=== PATIENT | female | born 1940 | race Caucasian/White ===

== ENCOUNTER 2018-02-13 12:36 | Inpatient (IN) | payer MEDICARE, MEDICAID ==
[~2018-02-13] VITALS: Ht 137.2 cm; Wt 49.9 kg
[~2018-02-13 12:36] MED LIST: BIMA0.038 OP; DORZ2SOL9; DORZ2SOL9 OP; EYE
[2018-02-13] MEDS ORDERED: SODIUM CHLORIDE 0.9% 1,000 ML IVB ONE (12:53)
[2018-02-13 13:26] LABS: Basophils # (auto) 0.1 uL; Eosinophils # (auto) 0.1 uL; Eosinophils % (auto) 1.8 % (0.0-7.0); Hematocrit 33.1 % (36.0-46.0); Hemoglobin 11.2 g/dL (12.2-16.2); Mean Corpuscular Hgb Conc. 33.9 g/dL (32.0-36.0); Monocytes # (auto) 0.9 uL; Nucleated Red Blood Cells % 0.1 %
[2018-02-13 13:29] LABS: Lymphocytes # (auto) 1.1 uL; Lymphocytes % (auto) 14.4 % (10.0-50.0); Mean Corpuscular Hemoglobin 34.3 pg (28.0-32.0); Mean Corpuscular Volume 101.1 fL (80.0-100.0); Monocytes % (auto) 11.7 % (0.0-12.0); Neutrophils # (auto) 5.6 uL; Neutrophils % (auto) 71.1 % (37.0-80.0); Platelet Count (auto) 377 10^3/uL (140-450); Red Blood Cells 3.27 10^6/uL (4.0-5.20); Red Cell Distribution Width 13.5 % (11.8-14.3); White Blood Cell 7.8 10^3/uL (4.4-10.8)
[2018-02-13 13:44] LABS: Partial Thromboplastin Time 35.4 sec (23.78-33.04); Prothrombin Time 10.7 sec (9.27-12.13)
[2018-02-13] MEDS ORDERED: ONDANSETRON HCL 4 MG/2 ML VIAL ONE (13:44)
[2018-02-13 13:50] LABS: Albumin 3.2 g/dL (3.4-5.0); BUN/Creatinine Ratio 18.5; Calcium 8.3 mg/dL (8.5-10.1); Magnesium 2.3 mg/dL (1.6-2.6)
[2018-02-13 13:52] LABS: Total Protein 7.4 g/dL (6.4-8.2)
[2018-02-13] MEDS ORDERED: ONDANSETRON HCL 4 MG/2 ML VIAL IV ONE (14:15)
[2018-02-13 14:19] LABS: Urine Bacteria NONE SEEN /hpf (None Seen); Urine Blood Negative /uL (Negative); Urine Mucus FEW (None Seen); Urine Specific Gravity 1.023 (1.001-1.035); Urine WBC 4 /hpf (0 - 5)
[2018-02-13] MEDS ORDERED: cefTRIAXone 1GM/10ml IVPUSH 10 ML IV ONE (16:00)
[2018-02-13] MEDS ORDERED: ONDANSETRON HCL 4 MG/2 ML VIAL IV PRN (16:30)
[2018-02-13] MEDS ORDERED: DOCUSATE SOD 100 MG CAP PO PRN (16:30)
[2018-02-13] MEDS ORDERED: ACETAMINOPHEN 325 MG TAB PO ONE (16:30)
[2018-02-13] MEDS ORDERED: NITROGLYCERIN 0.4 MG SL TAB SL PRN (16:30)
[2018-02-13] MEDS ORDERED: MORPHINE SULF INJ 2 MG/ML SYRINGE 1ML IV PRN ×2 (16:30)
[2018-02-13] MEDS ORDERED: ASPirin-EC 81 mg tab PO ONE (17:00)
[2018-02-13] MEDS ORDERED: ENOXAPARIN SOD 40 MG/0.4 ML SYRINGE SC ONE (17:00)
[2018-02-13] MEDS: HYDROcodone-ACET 5/325MG TAB PO PRN (17:23)
[2018-02-13 20:00] VITALS: BP 120/65
[2018-02-13] MEDS: DORZOLAMIDE HCL 2% OPTH(EYE) SOL 10ML EACHEYE SCH (22:07)
[2018-02-13] MEDS: FAMOTIDINE 20 MG TAB PO SCH (22:07)
[2018-02-13] MEDS: ATORVASTATIN 20 MG TAB PO SCH (22:07)
[2018-02-13] MEDS: LATANOPROST 0.005 % OPTH(EYE) SOL 2.5ML EACHEYE SCH (22:07)
[2018-02-13] MEDS: SODIUM CHLOR 0.9% PF (SALINE LOCK) 10ML VIAL/SYR IV SCH (22:08)
[2018-02-14] MEDS ORDERED: TEMAZEPAM 15 MG CAP PO ONE
[2018-02-14 04:51] VITALS: BP 108/62
[2018-02-14 05:51] LABS: Basophils # (auto) 0.1 uL; Eosinophils # (auto) 0.3 uL; Monocytes # (auto) 0.8 uL; Neutrophils # (auto) 3.4 uL; Platelet Count (auto) 308 10^3/uL (140-450); Red Blood Cells 2.84 10^6/uL (4.0-5.20); White Blood Cell 5.6 10^3/uL (4.4-10.8)
[2018-02-14] MEDS: SODIUM CHLOR 0.9% PF (SALINE LOCK) 10ML VIAL/SYR IV SCH ×3 (05:59→22:21)
[2018-02-14 06:05] LABS: Basophils % (auto) 1.1 % (0.0-2.0); Eosinophils % (auto) 5.2 % (0.0-7.0); Hematocrit 28.9 % (36.0-46.0); Hemoglobin 10.1 g/dL (12.2-16.2); Lymphocytes % (auto) 17.7 % (10.0-50.0); Mean Corpuscular Hemoglobin 35.5 pg (28.0-32.0); Mean Corpuscular Hgb Conc. 34.9 g/dL (32.0-36.0); Mean Corpuscular Volume 101.9 fL (80.0-100.0); Monocytes % (auto) 15.1 % (0.0-12.0); Neutrophils % (auto) 60.9 % (37.0-80.0); Red Cell Distribution Width 13.3 % (11.8-14.3)
[2018-02-14 06:39] LABS: Albumin 2.7 g/dL (3.4-5.0); BUN/Creatinine Ratio 14.6; Bilirubin, Total 0.8 mg/dL (0.2-1.0); Calcium 7.6 mg/dL (8.5-10.1); Potassium 3.7 mmol/L (3.5-5.1); Total Protein 6.2 g/dL (6.4-8.2)
[2018-02-14 09:00] VITALS: BP 114/76
[2018-02-14] MEDS: cefTRIAXone 1GM/10ml IVPUSH 10 ML IV SCH (09:12)
[2018-02-14] MEDS ORDERED: CALCIUM W/VIT D (600MG/400IU) TAB PO ONE (10:30)
[2018-02-14] MEDS: DORZOLAMIDE HCL 2% OPTH(EYE) SOL 10ML EACHEYE SCH ×2 (10:32→22:21)
[2018-02-14] MEDS: ENOXAPARIN SOD 40 MG/0.4 ML SYRINGE SC SCH (10:33)
[2018-02-14] MEDS: FAMOTIDINE 20 MG TAB PO SCH ×2 (10:33→22:22)
[2018-02-14] MEDS: MULTIPLE VITAMIN TAB PO SCH (10:33)
[2018-02-14] MEDS: ASPirin-EC 81 mg tab PO SCH (10:33)
[2018-02-14] MEDS: Ensure Enlive Strawberry 8oz Bottle PO SCH ×2 (11:27→17:31)
[2018-02-14 12:55] VITALS: BP 173/80
[2018-02-14 17:00] VITALS: BP 111/59
[2018-02-14] MEDS: CALCIUM W/VIT D (600MG/400IU) TAB PO SCH (17:31)
[2018-02-14] MEDS ORDERED: LORazepam 2MG/ML-1ML VIAL IV PRN (19:00)
[2018-02-14 20:50] LABS: Folate (Folic Acid) 14.93 ng/mL (5.38-24)
[2018-02-14] MEDS: LATANOPROST 0.005 % OPTH(EYE) SOL 2.5ML EACHEYE SCH (22:21)
[2018-02-14] MEDS: ATORVASTATIN 20 MG TAB PO SCH (22:22)
[2018-02-14 22:47] VITALS: BP 108/64
[2018-02-15] VITALS (7 sets, daily range): BP systolic 97–110; BP diastolic 58–68
[2018-02-15] MEDS: SODIUM CHLOR 0.9% PF (SALINE LOCK) 10ML VIAL/SYR IV SCH ×3 (06:08→21:59)
[2018-02-15 06:48] LABS: Eosinophils # (auto) 0.1 uL; Neutrophils # (auto) 3.3 uL; Red Blood Cells 2.85 10^6/uL (4.0-5.20); Red Cell Distribution Width 13.2 % (11.8-14.3)
[2018-02-15 06:52] LABS: Basophils # (auto) 0.1 uL; Eosinophils % (auto) 2.4 % (0.0-7.0); Hematocrit 28.7 % (36.0-46.0); Hemoglobin 10.1 g/dL (12.2-16.2); Mean Corpuscular Hemoglobin 35.6 pg (28.0-32.0); Mean Corpuscular Hgb Conc. 35.3 g/dL (32.0-36.0); Mean Corpuscular Volume 100.9 fL (80.0-100.0); Monocytes # (auto) 0.9 uL; Monocytes % (auto) 17.2 % (0.0-12.0); Neutrophils % (auto) 61.4 % (37.0-80.0); Nucleated Red Blood Cells % 0.2 %; Platelet Count (auto) 329 10^3/uL (140-450); White Blood Cell 5.4 10^3/uL (4.4-10.8)
[2018-02-15 07:14] LABS: BUN/Creatinine Ratio 14.3; Calcium 8.2 mg/dL (8.5-10.1); Potassium 3.6 mmol/L (3.5-5.1)
[2018-02-15] MEDS: CALCIUM W/VIT D (600MG/400IU) TAB PO SCH ×2 (09:12→19:01)
[2018-02-15] MEDS: MULTIPLE VITAMIN TAB PO SCH (09:13)
[2018-02-15] MEDS: ASPirin-EC 81 mg tab PO SCH (09:13)
[2018-02-15] MEDS: cefTRIAXone 1GM/10ml IVPUSH 10 ML IV SCH (09:13)
[2018-02-15] MEDS: DORZOLAMIDE HCL 2% OPTH(EYE) SOL 10ML EACHEYE SCH ×2 (09:13→21:58)
[2018-02-15] MEDS: Ensure Enlive Strawberry 8oz Bottle PO SCH ×3 (09:13→19:01)
[2018-02-15] MEDS: FAMOTIDINE 20 MG TAB PO SCH ×2 (09:13→22:00)
[2018-02-15] MEDS: ENOXAPARIN SOD 40 MG/0.4 ML SYRINGE SC SCH (09:15)
[2018-02-15] MEDS: ACETAMINOPHEN 325 MG TAB PO PRN (10:09)
[2018-02-15] MEDS: HYDROcodone-ACET 5/325MG TAB PO PRN (12:40)
[2018-02-15] MEDS: LATANOPROST 0.005 % OPTH(EYE) SOL 2.5ML EACHEYE SCH (21:59)
[2018-02-15] MEDS: ATORVASTATIN 20 MG TAB PO SCH (21:59)
[2018-02-16] MEDS: SODIUM CHLOR 0.9% PF (SALINE LOCK) 10ML VIAL/SYR IV SCH ×2 (05:25→15:12)
[2018-02-16 05:49] VITALS: BP 100/63
[2018-02-16] MEDS: ACETAMINOPHEN 325 MG TAB PO PRN (06:12)
[2018-02-16 08:36] VITALS: BP 101/61
[2018-02-16] MEDS: cefTRIAXone 1GM/10ml IVPUSH 10 ML IV SCH (09:48)
[2018-02-16] MEDS: CALCIUM W/VIT D (600MG/400IU) TAB PO SCH (09:48)
[2018-02-16] MEDS: ASPirin-EC 81 mg tab PO SCH (09:48)
[2018-02-16] MEDS: ENOXAPARIN SOD 40 MG/0.4 ML SYRINGE SC SCH (09:48)
[2018-02-16] MEDS: FAMOTIDINE 20 MG TAB PO SCH (09:48)
[2018-02-16] MEDS: DORZOLAMIDE HCL 2% OPTH(EYE) SOL 10ML EACHEYE SCH (09:49)
[2018-02-16] MEDS: MULTIPLE VITAMIN TAB PO SCH (09:49)
[2018-02-16] MEDS: Ensure Enlive Strawberry 8oz Bottle PO SCH ×2 (09:50→15:11)
[2018-02-16] MEDS ORDERED: CEPH-37 PO (10:16)
[2018-02-16] MEDS ORDERED: MULTTAB99 PO (10:16)
[2018-02-16 13:07] VITALS: BP 100/58
== END 2018-02-16 14:50 | disposition home health service (06) | DRG 463 ==
LOC: EDBD 12:36 → ER 12:36 → OVERFLOW 12:37 → TELE-WESTW 19:55
PROVIDERS: ADMIT Internal Medicine; ATTEND Internal Medicine
DX: N39.0 Urinary tract infection, site not specified (principal); G93.41 Metabolic encephalopathy; E44.0 Moderate protein-calorie malnutrition; D63.8 Anemia in other chronic diseases classified elsewhere; J98.11 Atelectasis; H40.9 Unspecified glaucoma; H91.90 Unspecified hearing loss, unspecified ear; G47.10 Hypersomnia, unspecified; D32.9 Benign neoplasm of meninges, unspecified; R53.1 Weakness; E83.51 Hypocalcemia; D50.9 Iron deficiency anemia, unspecified; Z80.1 Family history of malignant neoplasm of trachea, bronchus and lung; Z80.3 Family history of malignant neoplasm of breast; Z82.49 Family history of ischemic heart disease and other diseases of the circulatory system; Z90.710 Acquired absence of both cervix and uterus; Z83.3 Family history of diabetes mellitus; Z90.49 Acquired absence of other specified parts of digestive tract
CPT/HCPCS: 36415; 70450; 70551; 71045; 80048; 80053; 81001; 82533; 82607; 82746; 82962; 83735; 84443; 84484; 85025; 85610; 85730; 87086; 93005; 93306; 93886; 94761; 95819; 96361; 96372; 96374; 96375; 97116; 97163; 97530; J0696; J2405

== ENCOUNTER 2018-09-27 13:13 | Inpatient (IN) | payer MEDICARE, MEDICAID ==
[~2018-09-27] VITALS: Ht 137.2 cm; Wt 67.2 kg
[~2018-09-27 13:13] MED LIST changes: +CEPH-37 PO; +MULTTAB99 PO
[2018-09-27] MEDS ORDERED: SODIUM CHLORIDE 0.9% 1,000 ML IV ONE (13:26)
[2018-09-27] MEDS ORDERED: ACETAMINOPHEN 325 MG TAB PO ONE (13:45)
[2018-09-27 14:18] LABS: Eosinophils # (auto) 0 uL; Hemoglobin 11.8 g/dL (12.2-16.2); Lymphocytes # (auto) 0.5 uL
[2018-09-27 14:19] LABS: Basophils # (auto) 0.2 uL; Basophils % (auto) 1.6 % (0.0-2.0); Eosinophils % (auto) 0.1 % (0.0-7.0); Hematocrit 36.2 % (36.0-46.0); Lymphocytes % (auto) 5.4 % (10.0-50.0); Mean Corpuscular Hemoglobin 34.3 pg (28.0-32.0); Mean Corpuscular Hgb Conc. 32.6 g/dL (32.0-36.0); Mean Corpuscular Volume 105.4 fL (80.0-100.0); Monocytes # (auto) 0.8 uL; Monocytes % (auto) 8.2 % (0.0-12.0); Neutrophils # (auto) 7.9 uL; Neutrophils % (auto) 84.7 % (37.0-80.0); Platelet Count (auto) 338 10^3/uL (140-450); Red Blood Cells 3.44 10^6/uL (4.0-5.20); Red Cell Distribution Width 14.4 % (11.8-14.3); White Blood Cell 9.3 10^3/uL (4.4-10.8)
[2018-09-27 14:29] LABS: Alanine Aminotransferase 20 U/L (13-56); Albumin 4.1 g/dL (3.4-5.0); Anion Gap 4 (5-15); Aspartate Aminotransferase 19 U/L (15-37); BUN/Creatinine Ratio 12.9; Blood Urea Nitrogen 8 mg/dL (7-18); Calcium 8.5 mg/dL (8.5-10.1); Carbon Dioxide 26 mmol/L (21-32); Chloride 106 mmol/L (98-107); GFR African American 119 mL/min; GFR Non-African American 99 mL/min; Glucose 105 mg/dL (74-106); Potassium 3.8 mmol/L (3.5-5.1); Sodium 136 mmol/L (136-145)
[2018-09-27 14:33] LABS: INR 0.97 (0.9-1.15); Partial Thromboplastin Time 28.9 sec (23.78-33.04); Prothrombin Time 10.4 sec (9.27-12.13)
[2018-09-27 14:38] LABS: Alkaline Phosphatase 77 U/L (45-117); Bilirubin, Total 1.2 mg/dL (0.2-1.0); Total Protein 7.6 g/dL (6.4-8.2)
[2018-09-27] MEDS ORDERED: IBUPROFEN 600 MG TAB PO ONE (15:00)
[2018-09-27] MEDS ORDERED: cefTRIAXone 1GM/50ML D5W 50 ML IV ONE (15:00)
[2018-09-27 16:04] LABS: Urine Bacteria NONE SEEN /hpf (None Seen); Urine Blood Negative /uL (Negative); Urine Mucus FEW (None Seen); Urine WBC 1 /hpf (0 - 5)
[2018-09-27] MEDS ORDERED: FUROSEMIDE 20 MG/2 ML VIAL IV ONE (16:30)
[2018-09-27] MEDS ORDERED: ONDANSETRON HCL 4 MG/2 ML VIAL IV PRN (17:00)
[2018-09-27] MEDS ORDERED: MORPHINE SULF INJ 2 MG/ML SYRINGE 1ML IV PRN ×2 (17:00)
[2018-09-27] MEDS ORDERED: NITROGLYCERIN 0.4 MG SL TAB SL PRN (17:00)
[2018-09-27] MEDS: SODIUM CHLORIDE 0.9% 1,000 ML IV SCH ×2 (17:14→23:26)
[2018-09-27] MEDS: AZITHROMYCIN 500MG/ 250ML 250 ML IV SCH (17:20)
[2018-09-27] MEDS: ACETAMINOPHEN 500 MG TAB PO PRN (17:41)
[2018-09-27] MEDS: ALBUTEROL SULF 2.5 MG/0.5ML(0.5%) NEB SOLN NEB SCH (18:37)
[2018-09-27] MEDS: IPRATROPIUM BROM 0.5 MG/2.5ML INH SOL NEB SCH (18:38)
--- NOTE | 2018-09-27 18:38 | NUR ---
Respiratory note: AT BEDSIDE IN ER BED/YONI #24 FOR MED NEB TX. PT TOLERATING WELL VIA MASK.
[2018-09-27 19:43] VITALS: BP 108/50
[2018-09-27] MEDS: EYE OP SCH (22:00)
[2018-09-27] MEDS: DORZOLAM-TIMOLOL(2/0.5%) OPTH(EYE) SOLN 10ML OP SCH (22:00)
[2018-09-27] MEDS: BIMATOPROST 0.03% OP SCH (22:00)
[2018-09-27 23:30] VITALS: BP 98/38
--- NOTE | 2018-09-27 23:30 | NUR ---
Telemetry admit from ER DARRYLANTHONY admitted to Telemetry unit after SBAR received. Patient oriented to Dawn Moy, primary RN, unit, room, bed, and unit policies regarding patient care and visiting hours. Patient now on continuous telemetry monitoring, tele box # 40 and telemetry reading on arrival to unit is . Patient placed on bedside oxygen, weighed by bedscale and encouraged to call if they need something. All questions and concerns addressed, patient verbalized understanding. PT. VERY HARD OF HEARING. Note:
[2018-09-27] MEDS: OSELTAMIVIR 30 MG CAP PO SCH (23:58)
[2018-09-28] MEDS: ACETAMINOPHEN 500 MG TAB PO PRN ×2 (03:45→14:14)
--- NOTE | 2018-09-28 03:45 | NUR ---
pt. temp. 100.3, cooling measures applied, tylenol given as ordered, to keep monitor.
[2018-09-28 04:30] VITALS: BP 112/66
[2018-09-28 05:07] LABS: Cholesterol 120 mg/dL (< 200); Triglycerides 33 mg/dL (< 150)
[2018-09-28 05:09] LABS: HDL Cholesterol 64 mg/dL (40-59); LDL Cholesterol 62 mg/dL (< 100)
[2018-09-28] MEDS: IPRATROPIUM BROM 0.5 MG/2.5ML INH SOL NEB SCH ×3 (06:55→18:45)
[2018-09-28] MEDS: ALBUTEROL SULF 2.5 MG/0.5ML(0.5%) NEB SOLN NEB SCH ×3 (06:55→18:45)
--- NOTE | 2018-09-28 08:00 | NUR ---
PATIENT REFUSED BREAKFAST. SHE IS VERY SLEEPY. SHE IS WEAK AND HAS NO ENERGY. DAUGHTER STATES SHE IS USUALLY A VERY GOOD EATER AND THE DAY BEFORE YESTERDAY THE PATIENT WAS ACTIVE AND DOING HER LAUNDRY. IV INTACT PATIENT. WILL CONTINUE TO MONITOR
[2018-09-28] MEDS: cefTRIAXone 1GM/50ML D5W 50 ML IV SCH (08:39)
[2018-09-28 09:00] VITALS: BP 109/55
--- NOTE | 2018-09-28 09:00 | NUR ---
PATIENT STILL VERY SLEEPY. IV ROCEPHIN 1 GM STARTED.
[2018-09-28 09:37] LABS: Basophils # (auto) 0 uL; Eosinophils # (auto) 0 uL; Hematocrit 29.9 % (36.0-46.0); Lymphocytes # (auto) 0.4 uL; Monocytes # (auto) 0.6 uL; Monocytes % (auto) 9.6 % (0.0-12.0); White Blood Cell 6.7 10^3/uL (4.4-10.8)
[2018-09-28 09:40] LABS: Basophils % (auto) 0.6 % (0.0-2.0); Eosinophils % (auto) 0.1 % (0.0-7.0); Hemoglobin 10.1 g/dL (12.2-16.2); Lymphocytes % (auto) 5.4 % (10.0-50.0); Mean Corpuscular Hemoglobin 35.3 pg (28.0-32.0); Mean Corpuscular Hgb Conc. 33.7 g/dL (32.0-36.0); Mean Corpuscular Volume 104.7 fL (80.0-100.0); Neutrophils # (auto) 5.7 uL; Neutrophils % (auto) 84.3 % (37.0-80.0); Platelet Count (auto) 240 10^3/uL (140-450); Red Blood Cells 2.86 10^6/uL (4.0-5.20)
[2018-09-28 09:49] LABS: BUN/Creatinine Ratio 14.5; Calcium 7.9 mg/dL (8.5-10.1); Potassium 3.7 mmol/L (3.5-5.1)
[2018-09-28] MEDS: DORZOLAM-TIMOLOL(2/0.5%) OPTH(EYE) SOLN 10ML OP SCH ×2 (10:00→22:23)
[2018-09-28] MEDS: PANTOPRAZOLE 40 MG/10 ML VIAL IV SCH (10:22)
[2018-09-28] MEDS: AZITHROMYCIN 500MG/ 250ML 250 ML IV SCH (10:22)
[2018-09-28] MEDS: OSELTAMIVIR 30 MG CAP PO SCH ×2 (10:34→22:23)
[2018-09-28] MEDS: SODIUM CHLORIDE 0.9% 1,000 ML IV SCH ×2 (12:06→22:24)
[2018-09-28 13:00] VITALS: BP 110/62
[2018-09-28 17:00] VITALS: BP 117/65
--- NOTE | 2018-09-28 18:45 | NUR ---
Respiratory note: AT BEDSIDE FOR MED TOMAS TX. PT TOLERATING WELL VIA MASK. BS ARE DIMINISHED T/O, POX 92% ON 3LPM NC, WILL CONTINUE TO MONITOR. RT NAME AND PAGER ASSIGNMENT WRITTEN ON PTS ROOM BOARD.
[2018-09-28 20:00] VITALS: BP 108/65
[2018-09-28 22:00] VITALS: BP 108/65
[2018-09-28] MEDS: BIMATOPROST 0.03% OP SCH (22:00)
[2018-09-28] MEDS: EYE OP SCH (22:00)
[2018-09-29 05:00] VITALS: BP_SYST 130; BP_SYST 99; BP_DIAS 66; BP_DIAS 74
[2018-09-29] MEDS: IPRATROPIUM BROM 0.5 MG/2.5ML INH SOL NEB SCH ×3 (06:00→19:02)
[2018-09-29] MEDS: ALBUTEROL SULF 2.5 MG/0.5ML(0.5%) NEB SOLN NEB SCH ×3 (06:00→19:02)
[2018-09-29 08:49] VITALS: BP 124/67
[2018-09-29] MEDS: SODIUM CHLORIDE 0.9% 1,000 ML IV SCH ×3 (09:10→23:00)
[2018-09-29] MEDS: cefTRIAXone 1GM/50ML D5W 50 ML IV SCH (09:10)
[2018-09-29] MEDS: PANTOPRAZOLE 40 MG/10 ML VIAL IV SCH (10:33)
[2018-09-29] MEDS: OSELTAMIVIR 30 MG CAP PO SCH ×2 (10:34→22:11)
[2018-09-29] MEDS: AZITHROMYCIN 500MG/ 250ML 250 ML IV SCH (10:34)
[2018-09-29 13:08] VITALS: BP 118/88
[2018-09-29] MEDS: DORZOLAM-TIMOLOL(2/0.5%) OPTH(EYE) SOLN 10ML OP SCH ×2 (13:56→22:10)
[2018-09-29 17:19] VITALS: BP 128/75
--- NOTE | 2018-09-29 19:30 | NUR ---
Opening Shift Note Assumed care of patient, awake and alert. No S/S of distress/SOB or pain. Instructed on POC and to call for assist PRN, will continue to monitor for changes Q1hr and PRN.
[2018-09-29] MEDS: ACETAMINOPHEN 500 MG TAB PO PRN (20:24)
[2018-09-29 22:00] VITALS: BP 124/66
[2018-09-29] MEDS: BIMATOPROST 0.03% OP SCH (22:00)
[2018-09-29] MEDS: EYE OP SCH (22:00)
[2018-09-30 05:00] VITALS: BP 110/69
[2018-09-30] MEDS: ALBUTEROL SULF 2.5 MG/0.5ML(0.5%) NEB SOLN NEB SCH ×3 (05:47→19:40)
[2018-09-30] MEDS: IPRATROPIUM BROM 0.5 MG/2.5ML INH SOL NEB SCH ×3 (05:47→19:40)
--- NOTE | 2018-09-30 08:23 | NUR ---
PATIENT AWAKE SITTING UP IN BED STATES SHE IS FEELING BETTER AND WANT TO TRY AND EAT BREAKFAST THIS MORNING. DR RAMSEY AT BEDSIDE. PAGED PHYSICAL THERAPY TO GET HER OUT OF BED TODAY.
[2018-09-30] MEDS: cefTRIAXone 1GM/50ML D5W 50 ML IV SCH (08:45)
[2018-09-30 08:46] VITALS: BP 121/71
[2018-09-30] MEDS: PANTOPRAZOLE 40 MG/10 ML VIAL IV SCH (10:09)
[2018-09-30] MEDS: DORZOLAM-TIMOLOL(2/0.5%) OPTH(EYE) SOLN 10ML OP SCH ×2 (10:10→22:08)
[2018-09-30] MEDS: AZITHROMYCIN 500MG/ 250ML 250 ML IV SCH (10:10)
[2018-09-30] MEDS: OSELTAMIVIR 30 MG CAP PO SCH ×2 (10:18→22:08)
--- NOTE | 2018-09-30 12:00 | NUR ---
PATIENTS DAUGHTER CAME TO NURSES STATION STATING PATIENT IS HAVING A DIFFICULT TIME BREATHING. I ASSESSED PATIENT HER OXYGEN SATURATION IS 98 % ON 3 LITERS VIA NASAL CANULA. NOTIFIED DR URIBE THAT PATIENT IS HAVING WHAT SEEMS LIKE ANXIETY. ORDERS RECEIVED FOR ATIVAN.
[2018-09-30] MEDS ORDERED: LORazepam 0.5 MG TAB PO PRN (12:15)
[2018-09-30] MEDS: SODIUM CHLORIDE 0.9% 1,000 ML IV SCH (12:31)
[2018-09-30 13:17] VITALS: BP 130/67
[2018-09-30 17:17] VITALS: BP 126/86
[2018-09-30 18:47] VITALS: BP 126/86
--- NOTE | 2018-09-30 19:30 | NUR ---
Opening Shift Note Assumed care of patient, awake and alert. No S/S of distress/SOB or pain. Patient is BLACKFEET and using paper and writing to communicate. Instructed on POC and to call for assist PRN, will continue to monitor for changes Q1hr and PRN.
[2018-09-30 22:00] VITALS: BP 117/63
[2018-09-30] MEDS: EYE OP SCH (22:00)
[2018-09-30] MEDS: BIMATOPROST 0.03% OP SCH (22:00)
[2018-10-01] MEDS: HYDROcodone-ACET 5/325MG TAB PO PRN ×2 (02:03→08:52)
[2018-10-01 05:00] VITALS: BP 95/60
[2018-10-01] MEDS: IPRATROPIUM BROM 0.5 MG/2.5ML INH SOL NEB SCH ×3 (05:42→19:18)
[2018-10-01] MEDS: ALBUTEROL SULF 2.5 MG/0.5ML(0.5%) NEB SOLN NEB SCH ×3 (05:42→19:18)
--- NOTE | 2018-10-01 07:30 | NUR ---
OPENING SHIFT PATIENT IS SLEEPING IN BED. NO S/S OF DISTRESS, SOB, OR PAIN. RESPIRATIONS EVEN AND UNLABORED. BED IS IN LOWEST POSITION SIDE RAILS UP X2, AND CALL LIGHT WITHIN REACH. WILL CONTINUE TO MONITOR Q1 HOUR AND PRN.
[2018-10-01] MEDS: cefTRIAXone 1GM/50ML D5W 50 ML IV SCH (08:45)
[2018-10-01] MEDS: PANTOPRAZOLE 40 MG/10 ML VIAL IV SCH (08:45)
[2018-10-01] MEDS: OSELTAMIVIR 30 MG CAP PO SCH ×2 (08:45→21:58)
[2018-10-01] MEDS: DORZOLAM-TIMOLOL(2/0.5%) OPTH(EYE) SOLN 10ML OP SCH ×2 (08:46→21:58)
--- NOTE | 2018-10-01 08:53 | NUR ---
C/O OF HEAD PAIN PATIENT C/O OF 01/09 HEAD PAIN PATIENT ABLE TO READ QUESTIONS FROM PAPER PATIENT COMMUNICATES VERBALLY AND BY POINTING TO AREA OF PAIN WILL MEDICATE PER EMAR/ M.DJamey ORDERS
[2018-10-01 09:00] VITALS: BP 102/66
--- NOTE | 2018-10-01 10:15 | NUR ---
P/T AT BEDSIDE P/T AT BEDSIDE. AMBULATED PATIENT UP TO CHAIR. PATIENT SHOWS NO S/S OF DISTRESS, SOB, OR PAIN. WILL CONTINUE TO MONITOR Q15 MIN AND PRN.
--- NOTE | 2018-10-01 10:32 | NUR ---
INAPPROPRIATE BEHAVIOR PATIENT FOUND TALKING TO HERSELF. PATIENT STATES, " YOU BETTER PUT THAT DOWN! YOU NEED TO LEARN TO SHARE YOUR TOYS!" PATIENT ALERT AND ORIENTED X3 UPON ASSESSMENT. PATIENT STOPPED TALKING TO HERSELF THE MOMENT THIS R.N BEGAN ASKING QUESTIONS. Carolina MADE AWARE OF PATIENT BEHAVIOR
--- NOTE | 2018-10-01 10:35 | NUR ---
DR. Debbie RAMSEY M.D. AT BEDSIDE DISCUSSING POC WITH PATIENT. PATIENT VERBALIZED UNDERSTANDING NEW ORDERS GIVEN TO D/C CALL NARCOTICS
--- NOTE | 2018-10-01 10:37 | NUR ---
C/O OF DIZZINESS PATIENT IS SITTING UP IN CHAIR. PATIENT STATES SHE IS DIZZY. PATIENT B/P IS 102/66 mmHG. INFORMED M.D. OF PATIENT STATUS PAGED P/T TO AMBULATE PATIENT BACK TO BED NEW ORDERS GIVEN FOR FLUID BOLUS OF 1 LITER / 2 HOURS FOLLOWED BY 100 ML/HR AFTER BOLUS WILL MEDICATE PER EMAR/ Steven. ORDERS
[2018-10-01] MEDS ORDERED: SODIUM CHLORIDE 0.9% 1,000 ML IV ONE ×3 (11:45→12:45)
--- NOTE | 2018-10-01 12:43 | NUR ---
I.V FOUND REMOVED I.V. FOUND TO BE REMOVED FROM PATIENT NO S/S OF TRAUMA TO SITE. NO S/S OF DISTRESS, SOB, OR PAIN FLUID BOLUS NOT COMPLETED
[2018-10-01 12:53] VITALS: BP 108/67
--- NOTE | 2018-10-01 13:53 | NUR ---
IV insertion IV access obtained, via clean sterile technique by inserting 22 gauge catheter at LEFT HAND after 1 attempt. IV secured properly. No trauma to site. Patient tolerated well. FLUID BOLUS RESTARTED AT 500 ML/HR
--- NOTE | 2018-10-01 14:51 | NUR ---
NUTRITION ASSESSMENT NOTES Please refer to link notes of nutrition screen form filed under the intervention section of the plan of care for further details. Est. Needs: 1700 kcal to 2000 kcal (25-30 kcal/kgBW), 67 gms to 81 gms pro (1.0-1.2 gms/kgBW). Will continue to monitor pertinent labs and reassess nutrient need prn Thank you. Addendum: 10/01/18 at [address] Amended: Links added.
[2018-10-01 17:00] VITALS: BP 117/67
[2018-10-01] MEDS ORDERED: AZITHROMYCIN 250 MG TAB PO SCH (17:00)
--- NOTE | 2018-10-01 18:51 | NUR ---
END OF SHIFT PATIENT RESTING IN BED. NO S/S OF DISTRESS, SOB, OR PAIN. BED IS IN LOWEST POSITION, SIDE RAILS UP X2, AND CALL LIGHT WITHIN REACH.FALL PRECAUTIONS IN PLACE. WILL ENDORSE CARE TO TECHNOLOGY APPLICATIONS CONSULTANT R.N.
--- NOTE | 2018-10-01 19:30 | NUR ---
Opening Shift Note Assumed care of patient, patient asleep/resting. No S/S of distress/SOB or pain. Will continue to monitor for changes Q1hr and PRN.
[2018-10-01] MEDS: EYE OP SCH (21:58)
[2018-10-01] MEDS: BIMATOPROST 0.03% OP SCH (21:58)
[2018-10-01 22:00] VITALS: BP 122/80
[2018-10-02 05:00] VITALS: BP 118/59
[2018-10-02] MEDS: IPRATROPIUM BROM 0.5 MG/2.5ML INH SOL NEB SCH ×2 (06:00→11:36)
[2018-10-02] MEDS: ALBUTEROL SULF 2.5 MG/0.5ML(0.5%) NEB SOLN NEB SCH ×2 (06:00→11:36)
--- NOTE | 2018-10-02 07:30 | NUR ---
OPENING SHIFT PATIENT IS AWAKE, ALERT, AND ORIENTED X4. NO S/S OF DISTRESS, SOB, OR PAIN. CRACKLES AUSCULTATED BILATERALLY IN LUNGS. PATIENT IS ON 3 L NASAL CANNULA. SPO2 IS 92%. HOB ELEVATED. PATIENT IS SALINE LOCKED. BED IS IN LOWEST POSITION, SIDE RAILS UP X2, AND CALL LIGHT WITHIN REACH. WILL CONTINUE TO MONITOR Q1 HOUR AND PRN.
[2018-10-02 09:00] VITALS: BP 124/47
--- NOTE | 2018-10-02 09:19 | NUR ---
P/T HAS PATIENT UP TO CHAIR NO S/S OF DISTRESS, SOB, OR PAIN WILL CONTINUE TO MONITOR Q15 MIN AND PRN
[2018-10-02] MEDS: DORZOLAM-TIMOLOL(2/0.5%) OPTH(EYE) SOLN 10ML OP SCH (09:58)
[2018-10-02] MEDS: cefTRIAXone 1GM/50ML D5W 50 ML IV SCH (09:58)
[2018-10-02] MEDS: OSELTAMIVIR 30 MG CAP PO SCH (09:58)
[2018-10-02] MEDS: PANTOPRAZOLE 40 MG/10 ML VIAL IV SCH (09:58)
[2018-10-02 10:34] VITALS: BP 124/47
--- NOTE | 2018-10-02 10:50 | NUR ---
CALLED DAUGHTER JOHN INFORMED FAMILY MEMBER PATIENT WAS DISCHARGED JOHN STATED SHE WOULD BE HERE SOON
--- NOTE | 2018-10-02 11:24 | NUR ---
Krishna catheter dc'd Patient discharged. Krishna dc'd with clean technique following deflation of balloon. Patient tolerated well with no complaints of pain.
--- NOTE | 2018-10-02 12:13 | NUR ---
DISCHARGE Discharge instructions given as ordered. Encourage to follow up with PCP as instructed. All questions and concerns addressed. Patient and family verbalized understanding. Patient's daughter and ordnance artificer, Amita, signed discharge paperwork. Patient unable to sign. IV removed with catheter intact, pressure dressing applied, saravia catheter removed. Telemetry unit returned to [facility]. Patient taken to vehicle via wheelchair with all personal belongings, accompanied by staff and family member. No distress noted at time of departure.
== END 2018-10-02 12:25 | disposition home or self-care (01) | DRG 720 ==
LOC: ER 13:13 → EDBD 13:13 → TELE 16:53 → TELE-CENTR 22:43 → CENTRAL 10-02 02:23
PROVIDERS: ADMIT Nurse Practitioner Acute Care; ATTEND Family Medicine
DX: A41.9 Sepsis, unspecified organism (principal); J10.00 Influenza due to other identified influenza virus with unspecified type of pneumonia; E86.0 Dehydration; D64.9 Anemia, unspecified; H40.9 Unspecified glaucoma; Z87.440 Personal history of urinary (tract) infections; E66.9 Obesity, unspecified; H91.90 Unspecified hearing loss, unspecified ear; I70.0 Atherosclerosis of aorta; Z80.1 Family history of malignant neoplasm of trachea, bronchus and lung; Z82.49 Family history of ischemic heart disease and other diseases of the circulatory system; Z83.3 Family history of diabetes mellitus; Z90.710 Acquired absence of both cervix and uterus; Z90.49 Acquired absence of other specified parts of digestive tract; Z68.35 Body mass index [BMI] 35.0-35.9, adult
CPT/HCPCS: 36415; 51702; 71045; 74176; 80048; 80053; 80061; 81001; 83605; 83880; 84443; 84484; 85025; 85610; 85730; 87040; 87081; 87086; 87804; 94640; 96361; 96365; 96367; C9113; G0378; G9035; J0696; J2405

== ENCOUNTER 2020-12-21 09:01 | Inpatient (IN) | payer MEDICARE, MEDICAID ==
[~2020-12-21] VITALS: Ht 152.4 cm; Wt 63.4 kg
[~2020-12-21 09:01] MED LIST changes: -BIMA0.038 OP; -DORZ2SOL9; -EYE; +LATA0.0020 EACHEYE
[2020-12-21] MEDS ORDERED: SODIUM CHLORIDE 0.9% 1,000 ML IV ONE (09:15)
[2020-12-21 09:33] LABS: Basophils # (auto) 0.1 10 ^3/uL (0-0.2); Eosinophils # (auto) 0.1 10 ^3/uL (0-0.8); Lymphocytes # (auto) 0.8 10 ^3/uL (0.4-5.4); Mean Corpuscular Volume 108.1 fL (80.0-100.0); Neutrophils # (auto) 7.6 10 ^3/uL (1.6-8.6)
[2020-12-21 09:34] LABS: Eosinophils % (auto) 0.9 % (0.0-7.0); Hematocrit 29.4 % (36.0-46.0); Lymphocytes % (auto) 8.8 % (10.0-50.0); Mean Corpuscular Hemoglobin 36.9 pg (28.0-32.0); Mean Corpuscular Hgb Conc. 34.1 g/dL (32.0-36.0); Monocytes # (auto) 0.5 10 ^3/uL (0-1.3); Monocytes % (auto) 5.4 % (0.0-12.0); Neutrophils % (auto) 83.9 % (37.0-80.0); Nucleated Red Blood Cells % 0.1 %; Red Blood Cells 2.72 10^6/uL (4.0-5.20); Red Cell Distribution Width 15.1 % (11.8-14.3)
[2020-12-21 09:49] LABS: Alanine Aminotransferase 25 U/L (13-56); Albumin 3.4 g/dL (3.4-5.0); Anion Gap 5 (5-15); Aspartate Aminotransferase 18 U/L (15-37); BUN/Creatinine Ratio 32.1; Blood Urea Nitrogen 17 mg/dL (7-18); Calcium 7.9 mg/dL (8.5-10.1); Carbon Dioxide 25 mmol/L (21-32); Chloride 110 mmol/L (98-107); GFR African American 142 mL/min; GFR Non-African American 117 mL/min; Glucose 97 mg/dL (74-106); Potassium 4.4 mmol/L (3.5-5.1); Sodium 140 mmol/L (136-145)
[2020-12-21 09:54] LABS: Alkaline Phosphatase 85 U/L (45-117); Total Protein 6.8 g/dL (6.4-8.2)
[2020-12-21 10:14] LABS: Urine Bacteria NONE SEEN /hpf (None Seen); Urine Blood Negative /uL (Negative); Urine Hyaline Cast FEW /lpf (0 - 2); Urine Mucus FEW (None Seen); Urine Specific Gravity 1.021 (1.001-1.035); Urine WBC 1 /hpf (0 - 5)
[2020-12-21] MEDS ORDERED: cefTRIAXone 1GM/50ML D5W 50 ML IV ONE (11:00)
[2020-12-21] MEDS ORDERED: AZITHROMYCIN 500MG/ 250ML 250 ML IV ONE (11:00)
[2020-12-21] MEDS ORDERED: ACETAMINOPHEN 500 MG TAB PO PRN (12:00)
[2020-12-21] MEDS ORDERED: NITROGLYCERIN 0.4 MG SL TAB SL PRN (12:00)
[2020-12-21] MEDS ORDERED: ONDANSETRON HCL 4 MG/2 ML VIAL IV PRN (12:00)
[2020-12-21] MEDS ORDERED: HYDROcodone-ACET 5/325MG TAB PO PRN (12:00)
[2020-12-21] MEDS ORDERED: MORPHINE SULF INJ 2 MG/ML SYRINGE 1ML IV PRN ×2 (12:00)
[2020-12-21] MEDS ORDERED: IOHEXOL 300 MG/ML 100ML BOTTLE IJ ONE (12:10)
[2020-12-21] MEDS: SODIUM CHLORIDE 0.9% 1,000 ML IV SCH (12:42)
[2020-12-21] MEDS: metroNIDAZOLE 500MG/100ML 100 ML IV SCH (14:33)
[2020-12-21] MEDS: DORZOLAM-TIMOLOL(2/0.5%) OPTH(EYE) SOLN 10ML OP SCH (22:00)
[2020-12-22] MEDS: metroNIDAZOLE 500MG/100ML 100 ML IV SCH ×4 (01:24→22:34)
[2020-12-22] MEDS: SODIUM CHLORIDE 0.9% 1,000 ML IV SCH ×4 (01:26→19:03)
[2020-12-22 02:37] VITALS: BP 109/63
[2020-12-22 05:19] VITALS: BP 111/38
[2020-12-22 09:00] VITALS: BP 107/56
[2020-12-22] MEDS: DORZOLAM-TIMOLOL(2/0.5%) OPTH(EYE) SOLN 10ML OP SCH ×2 (09:00→22:35)
[2020-12-22] MEDS: cefTRIAXone 1GM/50ML D5W 50 ML IV SCH (09:01)
[2020-12-22] MEDS: FAMOTIDINE 20 MG TAB PO SCH (09:01)
[2020-12-22 13:00] VITALS: BP 107/58
[2020-12-22 22:00] VITALS: BP 155/76
[2020-12-22] MEDS: LATANOPROST 0.005 % OPTH(EYE) SOL 2.5ML EACHEYE SCH (22:34)
[2020-12-23] MEDS: SODIUM CHLORIDE 0.9% 1,000 ML IV SCH ×4 (02:12→22:05)
[2020-12-23 05:00] VITALS: BP 123/69
[2020-12-23] MEDS: metroNIDAZOLE 500MG/100ML 100 ML IV SCH ×2 (05:13→13:49)
[2020-12-23 08:57] VITALS: BP 147/66
[2020-12-23] MEDS: FAMOTIDINE 20 MG TAB PO SCH (10:28)
[2020-12-23] MEDS: DORZOLAM-TIMOLOL(2/0.5%) OPTH(EYE) SOLN 10ML OP SCH ×2 (10:29→21:43)
[2020-12-23] MEDS: cefTRIAXone 1GM/50ML D5W 50 ML IV SCH (10:29)
[2020-12-23 13:00] VITALS: BP 130/70
[2020-12-23 17:00] VITALS: BP 138/92
[2020-12-23] MEDS: SUCRALFATE 1 GM/10 ML ORAL SUSP PO SCH ×2 (17:01→21:43)
[2020-12-23] MEDS: Ensure HIGH Protein Chocolate 8oz Bottle PO SCH (19:18)
[2020-12-23] MEDS: LATANOPROST 0.005 % OPTH(EYE) SOL 2.5ML EACHEYE SCH (21:44)
[2020-12-23 22:00] VITALS: BP 135/72
[2020-12-24] MEDS: SODIUM CHLORIDE 0.9% 1,000 ML IV SCH ×4 (02:26→22:45)
[2020-12-24 05:00] VITALS: BP 103/50
[2020-12-24] MEDS: SUCRALFATE 1 GM/10 ML ORAL SUSP PO SCH ×4 (07:12→21:46)
[2020-12-24 09:00] VITALS: BP 104/57
[2020-12-24] MEDS: Ensure HIGH Protein Chocolate 8oz Bottle PO SCH ×3 (09:36→17:59)
[2020-12-24] MEDS: FAMOTIDINE 20 MG TAB PO SCH (09:37)
[2020-12-24] MEDS: DORZOLAM-TIMOLOL(2/0.5%) OPTH(EYE) SOLN 10ML OP SCH ×2 (09:37→21:46)
[2020-12-24] MEDS: cefTRIAXone 1GM/50ML D5W 50 ML IV SCH (09:37)
[2020-12-24 13:00] VITALS: BP 119/69
[2020-12-24 17:00] VITALS: BP 104/65
[2020-12-24] MEDS: LATANOPROST 0.005 % OPTH(EYE) SOL 2.5ML EACHEYE SCH (21:46)
[2020-12-24 22:00] VITALS: BP 120/67
[2020-12-25 05:00] VITALS: BP 99/50
[2020-12-25] MEDS: SODIUM CHLORIDE 0.9% 1,000 ML IV SCH ×2 (05:26→11:40)
[2020-12-25] MEDS: SUCRALFATE 1 GM/10 ML ORAL SUSP PO SCH ×2 (06:19→11:40)
[2020-12-25 09:00] VITALS: BP 116/58
[2020-12-25] MEDS: cefTRIAXone 1GM/50ML D5W 50 ML IV SCH (09:14)
[2020-12-25] MEDS: DORZOLAM-TIMOLOL(2/0.5%) OPTH(EYE) SOLN 10ML OP SCH (09:14)
[2020-12-25] MEDS: FAMOTIDINE 20 MG TAB PO SCH (09:14)
[2020-12-25] MEDS: Ensure HIGH Protein Chocolate 8oz Bottle PO SCH ×2 (09:33→11:39)
[2020-12-25 12:57] VITALS: BP 138/58
== END 2020-12-25 12:48 | disposition home or self-care (01) | DRG 249 ==
LOC: EDBD 09:01 → EDUNIT# 09:01 → ER 09:01 → TELE 12:00 → TELE-WESTW 18:54
PROVIDERS: ADMIT Nurse Practitioner Acute Care; ATTEND Family Medicine
DX: K52.9 Noninfective gastroenteritis and colitis, unspecified (principal); E86.0 Dehydration; R91.8 Other nonspecific abnormal finding of lung field; E66.9 Obesity, unspecified; L25.9 Unspecified contact dermatitis, unspecified cause; H40.9 Unspecified glaucoma; M19.90 Unspecified osteoarthritis, unspecified site; Z20.822 Contact with and (suspected) exposure to COVID-19; K57.30 Diverticulosis of large intestine without perforation or abscess without bleeding; Z80.1 Family history of malignant neoplasm of trachea, bronchus and lung; Z82.49 Family history of ischemic heart disease and other diseases of the circulatory system; Z83.3 Family history of diabetes mellitus; Z90.49 Acquired absence of other specified parts of digestive tract; Z90.710 Acquired absence of both cervix and uterus; Z79.899 Other long term (current) drug therapy; Z68.27 Body mass index [BMI] 27.0-27.9, adult; Z98.51 Tubal ligation status
CPT/HCPCS: 36415; 70450; 71045; 71260; 74176; 80053; 81001; 83605; 83880; 84484; 85025; 87040; 87426; 93005; 93886; 96361; 96365; 96366; 96367; G0378; J0696; J2405; J3490

== ENCOUNTER 2021-03-26 15:55 | Emergency (ER) | payer MEDICARE, MEDICAID ==
[~2021-03-26] VITALS: Ht 152.4 cm; Wt 68.0 kg
[2021-03-26 16:51] LABS: Basophils # (auto) 0.1 10 ^3/uL (0-0.2); Basophils % (auto) 1.6 % (0.0-2.0); Eosinophils # (auto) 0 10 ^3/uL (0-0.8); Hemoglobin 9.2 g/dL (12.2-16.2); Mean Corpuscular Hemoglobin 37.2 pg (28.0-32.0); Monocytes # (auto) 0.4 10 ^3/uL (0-1.3); Nucleated Red Blood Cells % 0.1 %; Red Blood Cells 2.48 10^6/uL (4.0-5.20)
[2021-03-26 16:52] LABS: Eosinophils % (auto) 0.7 % (0.0-7.0); Hematocrit 27.8 % (36.0-46.0); Lymphocytes % (auto) 42.4 % (10.0-50.0); Mean Corpuscular Hgb Conc. 33.2 g/dL (32.0-36.0); Mean Corpuscular Volume 112.1 fL (80.0-100.0); Monocytes % (auto) 8.7 % (0.0-12.0); Neutrophils # (auto) 2.2 10 ^3/uL (1.6-8.6); Neutrophils % (auto) 46.6 % (37.0-80.0); Red Cell Distribution Width 15.5 % (11.8-14.3); White Blood Cell 4.8 10^3/uL (4.4-10.8)
[2021-03-26 17:02] LABS: Albumin 3.7 g/dL (3.4-5.0); Anion Gap 7 (5-15); Blood Urea Nitrogen 14 mg/dL (7-18); Calcium 8.7 mg/dL (8.5-10.1); Carbon Dioxide 24 mmol/L (21-32); Chloride 110 mmol/L (98-107); Glucose 100 mg/dL (74-106); Potassium 3.8 mmol/L (3.5-5.1); Sodium 141 mmol/L (136-145)
[2021-03-26 17:10] LABS: INR 1.06 (0.9-1.15); Partial Thromboplastin Time 25.5 sec (23.6-33.0)
[2021-03-26 17:11] LABS: Alanine Aminotransferase 19 U/L (13-56); Alkaline Phosphatase 84 U/L (45-117); Aspartate Aminotransferase 15 U/L (15-37); BUN/Creatinine Ratio 25.9; Bilirubin, Total 0.9 mg/dL (0.2-1.0); GFR African American 139 mL/min; GFR Non-African American 115 mL/min; Total Protein 6.9 g/dL (6.4-8.2)
[2021-03-26 18:44] VITALS: BP 130/98
== END 2021-03-26 18:45 | disposition home or self-care (01) ==
LOC: EDBD 15:55 → EDUNIT# 15:55 → ER 15:56
DX: D64.89 Other specified anemias (principal); Z90.49 Acquired absence of other specified parts of digestive tract; Z90.710 Acquired absence of both cervix and uterus; Z79.899 Other long term (current) drug therapy
CPT/HCPCS: 36415; 71045; 80053; 84484; 85025; 85610; 85730

== ENCOUNTER 2021-07-03 14:27 | Inpatient (IN) | payer MEDICARE, MEDICAID ==
[~2021-07-03] VITALS: Ht 165.1 cm; Wt 58.1 kg
[2021-07-03 16:12] LABS: Basophils # (auto) 0.1 10 ^3/uL (0-0.2); Eosinophils # (auto) 0 10 ^3/uL (0-0.8); Hematocrit 29.5 % (36.0-46.0); Hemoglobin 9.8 g/dL (12.2-16.2); Lymphocytes # (auto) 0.8 10 ^3/uL (0.4-5.4); Lymphocytes % (auto) 9.9 % (10.0-50.0); Mean Corpuscular Hemoglobin 36.6 pg (28.0-32.0); Monocytes # (auto) 0.9 10 ^3/uL (0-1.3); Nucleated Red Blood Cells % 0.1 %; Red Blood Cells 2.68 10^6/uL (4.0-5.20)
[2021-07-03 16:14] LABS: Basophils % (auto) 1.2 % (0.0-2.0); Eosinophils % (auto) 0.1 % (0.0-7.0); Mean Corpuscular Hgb Conc. 33.2 g/dL (32.0-36.0); Mean Corpuscular Volume 110.1 fL (80.0-100.0); Monocytes % (auto) 11.6 % (0.0-12.0); Neutrophils # (auto) 5.9 10 ^3/uL (1.6-8.6); Neutrophils % (auto) 77.2 % (37.0-80.0); Red Cell Distribution Width 15.9 % (11.8-14.3); White Blood Cell 7.6 10^3/uL (4.4-10.8)
[2021-07-03 16:28] LABS: Albumin 3.9 g/dL (3.4-5.0); Calcium 7.7 mg/dL (8.5-10.1); Potassium 3.9 mmol/L (3.5-5.1)
[2021-07-03 16:33] LABS: BUN/Creatinine Ratio 16.1; Bilirubin, Total 1.4 mg/dL (0.2-1.0)
[2021-07-03 18:15] LABS: Urine Bacteria NONE SEEN /hpf (None Seen); Urine Blood Negative /uL (Negative); Urine Mucus FEW (None Seen); Urine Specific Gravity 1.008 (1.001-1.035); Urine WBC <1 /hpf (0 - 5)
[2021-07-03] MEDS ORDERED: ASCORBIC ACID 500 MG TAB PO ONE (19:15)
[2021-07-03] MEDS ORDERED: AZITHROMYCIN 500MG/ 250ML 250 ML IV ONE (19:15)
[2021-07-03] MEDS ORDERED: ZINC SULFATE 220mg CAP or TAB PO ONE (19:15)
[2021-07-03] MEDS ORDERED: CHOLECALCIFEROL (VITD3) 2,000 UNIT CAP/TAB PO ONE (19:15)
[2021-07-03] MEDS ORDERED: SODIUM CHLORIDE 0.9% 1,000 ML IV ONE (19:15)
[2021-07-03] MEDS ORDERED: SODIUM CHLORIDE 0.9% 1,000 ML IVB ONE (19:15)
[2021-07-03] MEDS ORDERED: ASPirin 81 mg TAB PO ONE (19:15)
[2021-07-03] MEDS ORDERED: cefTRIAXone 1GM/50ML D5W 50 ML IV ONE (19:15)
[2021-07-03] MEDS ORDERED: ONDANSETRON HCL 4 MG/2 ML VIAL IV PRN (21:15)
[2021-07-03] MEDS ORDERED: MORPHINE SULFATE INJECTION 2 MG/ML SYRG IV PRN (21:15)
[2021-07-03] MEDS ORDERED: CALCIUM GLUC 1,000mg/50ml-NS 50 ML IV ONE (21:15)
[2021-07-03] MEDS ORDERED: ACETAMINOPHEN 500 MG TAB PO PRN (21:15)
[2021-07-03] MEDS ORDERED: TEMAZEPAM 15 MG CAP PO PRN (21:15)
[2021-07-03] MEDS ORDERED: NITROGLYCERIN 0.4 MG SL TAB SL PRN (21:15)
[2021-07-03] MEDS: ENOXAPARIN SOD 40 MG/0.4 ML SYRINGE SC SCH (21:44)
[2021-07-03 22:30] VITALS: BP 98/46
[2021-07-04] VITALS (7 sets, daily range): BP systolic 94–117; BP diastolic 38–60
[2021-07-04 00:08] LABS: Magnesium 2.1 mg/dL (1.6-2.6)
[2021-07-04 00:17] LABS: CRP High Sensitivity 1.3 mg/dL (< 0.3)
[2021-07-04 05:52] LABS: Basophils % (auto) 0.9 % (0.0-2.0); Eosinophils # (auto) 0 10 ^3/uL (0-0.8); Eosinophils % (auto) 0.1 % (0.0-7.0); Hemoglobin 8.5 g/dL (12.2-16.2); White Blood Cell 5.6 10^3/uL (4.4-10.8)
[2021-07-04 05:54] LABS: Basophils # (auto) 0 10 ^3/uL (0-0.2); Lymphocytes # (auto) 1.1 10 ^3/uL (0.4-5.4); Lymphocytes % (auto) 20.4 % (10.0-50.0); Mean Corpuscular Hgb Conc. 33.9 g/dL (32.0-36.0); Mean Corpuscular Volume 109.3 fL (80.0-100.0); Monocytes # (auto) 0.9 10 ^3/uL (0-1.3); Monocytes % (auto) 15.2 % (0.0-12.0); Neutrophils # (auto) 3.6 10 ^3/uL (1.6-8.6); Neutrophils % (auto) 63.4 % (37.0-80.0); Nucleated Red Blood Cells % 0.1 %; Red Blood Cells 2.29 10^6/uL (4.0-5.20); Red Cell Distribution Width 15.4 % (11.8-14.3)
[2021-07-04 06:26] LABS: Potassium 3.9 mmol/L (3.5-5.1)
[2021-07-04 06:31] LABS: Albumin 3.2 g/dL (3.4-5.0); BUN/Creatinine Ratio 28.6; Calcium 7.7 mg/dL (8.5-10.1)
[2021-07-04 06:33] LABS: Bilirubin, Total 1.2 mg/dL (0.2-1.0); Total Protein 5.7 g/dL (6.4-8.2)
[2021-07-04] MEDS: DexAMETHasone SOD PHOS 10MG/1ML VIAL INJ IV SCH (09:16)
[2021-07-04] MEDS: CHOLECALCIFEROL (VITD3) 2,000 UNIT CAP/TAB PO SCH (09:17)
[2021-07-04] MEDS: ZINC SULFATE 220mg CAP or TAB PO SCH (09:17)
[2021-07-04] MEDS: AZITHROMYCIN 500MG/ 250ML 250 ML IV SCH (09:17)
[2021-07-04] MEDS: ASCORBIC ACID 1,000 MG TAB PO SCH (09:17)
[2021-07-04] MEDS: ENOXAPARIN SOD 40 MG/0.4 ML SYRINGE SC SCH ×2 (09:18→21:59)
[2021-07-04] MEDS: ALBUTEROL SULF HFA 90MCG INH 200DOSE IN PRN (09:21)
[2021-07-04] MEDS: FERROUS SULFATE 325mg EC TAB PO SCH ×2 (09:27→17:37)
[2021-07-04] MEDS ORDERED: BUDESONIDE (INHALATION) 0.5 MG/2 ML NEB NEB ONE (11:45)
[2021-07-04] MEDS ORDERED: REMDESIVIR PER PHARMACY 0 ML IV SCH (11:45)
[2021-07-04] MEDS ORDERED: REMDESIVIR 200 MG in NS 210ml LOADING DOSE ADULT IV ONE (15:00)
[2021-07-04] MEDS: BUDESONIDE (INHALATION) 0.5 MG/2 ML NEB NEB SCH (23:01)
[2021-07-05 05:00] VITALS: BP 104/61
[2021-07-05] MEDS: BUDESONIDE (INHALATION) 0.5 MG/2 ML NEB NEB SCH ×2 (07:10→20:06)
[2021-07-05] MEDS: ALBUTEROL SULF HFA 90MCG INH 200DOSE IN PRN ×2 (07:11→20:06)
[2021-07-05] MEDS: FERROUS SULFATE 325mg EC TAB PO SCH ×2 (08:51→18:15)
[2021-07-05 09:00] VITALS: BP 110/53
[2021-07-05] MEDS: DexAMETHasone SOD PHOS 10MG/1ML VIAL INJ IV SCH (09:02)
[2021-07-05] MEDS: ASCORBIC ACID 1,000 MG TAB PO SCH (09:03)
[2021-07-05] MEDS: CHOLECALCIFEROL (VITD3) 2,000 UNIT CAP/TAB PO SCH (09:03)
[2021-07-05] MEDS: AZITHROMYCIN 500MG/ 250ML 250 ML IV SCH (09:03)
[2021-07-05] MEDS: ZINC SULFATE 220mg CAP or TAB PO SCH (09:03)
[2021-07-05] MEDS: ENOXAPARIN SOD 40 MG/0.4 ML SYRINGE SC SCH ×2 (09:04→21:37)
[2021-07-05 13:00] VITALS: BP 113/79
[2021-07-05] MEDS: REMDESIVIR 100mg 100 MG in SODIUM CHL 0.9% 230 ML IV SCH (15:49)
[2021-07-05 17:00] VITALS: BP 102/56
[2021-07-05 22:00] VITALS: BP 105/63
[2021-07-06 05:00] VITALS: BP 101/80
[2021-07-06 06:38] LABS: Potassium 3.7 mmol/L (3.5-5.1)
[2021-07-06 06:44] LABS: Albumin 3.1 g/dL (3.4-5.0); BUN/Creatinine Ratio 31.9; Calcium 7.8 mg/dL (8.5-10.1)
[2021-07-06 06:46] LABS: Bilirubin, Total 0.4 mg/dL (0.2-1.0); Total Protein 5.4 g/dL (6.4-8.2)
[2021-07-06] MEDS: BUDESONIDE (INHALATION) 0.5 MG/2 ML NEB NEB SCH ×2 (07:53→20:09)
[2021-07-06] MEDS: ALBUTEROL SULF HFA 90MCG INH 200DOSE IN PRN ×2 (07:53→20:14)
[2021-07-06 09:00] VITALS: BP 92/52
[2021-07-06] MEDS: FERROUS SULFATE 325mg EC TAB PO SCH ×2 (09:40→18:00)
[2021-07-06] MEDS: ZINC SULFATE 220mg CAP or TAB PO SCH (10:34)
[2021-07-06] MEDS: DexAMETHasone SOD PHOS 10MG/1ML VIAL INJ IV SCH (10:34)
[2021-07-06] MEDS: ASCORBIC ACID 1,000 MG TAB PO SCH (10:34)
[2021-07-06] MEDS: CHOLECALCIFEROL (VITD3) 2,000 UNIT CAP/TAB PO SCH (10:34)
[2021-07-06] MEDS: AZITHROMYCIN 500MG/ 250ML 250 ML IV SCH (10:34)
[2021-07-06] MEDS: ENOXAPARIN SOD 40 MG/0.4 ML SYRINGE SC SCH ×2 (10:35→21:20)
[2021-07-06 13:00] VITALS: BP 96/59
[2021-07-06 13:51] LABS: Folate (Folic Acid) > 24.00 ng/mL (5.38-24)
[2021-07-06] MEDS: REMDESIVIR 100mg 100 MG in SODIUM CHL 0.9% 230 ML IV SCH (15:44)
[2021-07-06 17:00] VITALS: BP 107/78
[2021-07-06 21:30] VITALS: BP 113/61
[2021-07-07 05:00] VITALS: BP 110/68
[2021-07-07 08:15] LABS: Basophils # (auto) 0 10 ^3/uL (0-0.2); Basophils % (auto) 0.2 % (0.0-2.0); Eosinophils # (auto) 0 10 ^3/uL (0-0.8); Hematocrit 24.4 % (36.0-46.0); Hemoglobin 8.5 g/dL (12.2-16.2); Lymphocytes # (auto) 1.3 10 ^3/uL (0.4-5.4); Mean Corpuscular Hemoglobin 37.5 pg (28.0-32.0); Mean Corpuscular Hgb Conc. 34.8 g/dL (32.0-36.0); Monocytes # (auto) 0.4 10 ^3/uL (0-1.3); Monocytes % (auto) 12.8 % (0.0-12.0); Neutrophils # (auto) 1.5 10 ^3/uL (1.6-8.6); Nucleated Red Blood Cells % 0.2 %; Red Blood Cells 2.26 10^6/uL (4.0-5.20); Red Cell Distribution Width 15.3 % (11.8-14.3); White Blood Cell 3.2 10^3/uL (4.4-10.8)
[2021-07-07 08:16] LABS: Mean Corpuscular Volume 107.7 fL (80.0-100.0)
[2021-07-07 08:39] LABS: Potassium 3.8 mmol/L (3.5-5.1)
[2021-07-07 08:47] LABS: Albumin 3.2 g/dL (3.4-5.0); BUN/Creatinine Ratio 45.2; Bilirubin, Total 0.4 mg/dL (0.2-1.0); Calcium 7.7 mg/dL (8.5-10.1); Total Protein 5.6 g/dL (6.4-8.2)
[2021-07-07 09:00] VITALS: BP 103/64
[2021-07-07] MEDS: ENOXAPARIN SOD 40 MG/0.4 ML SYRINGE SC SCH ×2 (09:03→21:43)
[2021-07-07] MEDS: CHOLECALCIFEROL (VITD3) 2,000 UNIT CAP/TAB PO SCH (09:03)
[2021-07-07] MEDS: ZINC SULFATE 220mg CAP or TAB PO SCH (09:03)
[2021-07-07] MEDS: AZITHROMYCIN 500MG/ 250ML 250 ML IV SCH (09:03)
[2021-07-07] MEDS: ASCORBIC ACID 1,000 MG TAB PO SCH (09:03)
[2021-07-07] MEDS: FERROUS SULFATE 325mg EC TAB PO SCH ×2 (09:04→17:19)
[2021-07-07] MEDS: DexAMETHasone SOD PHOS 10MG/1ML VIAL INJ IV SCH (09:04)
[2021-07-07] MEDS: BUDESONIDE (INHALATION) 0.5 MG/2 ML NEB NEB SCH ×2 (10:00→20:52)
[2021-07-07 13:00] VITALS: BP 118/64
[2021-07-07] MEDS: REMDESIVIR 100mg 100 MG in SODIUM CHL 0.9% 230 ML IV SCH (15:05)
[2021-07-07 17:00] VITALS: BP 110/48
[2021-07-07] MEDS: ALBUTEROL SULF HFA 90MCG INH 200DOSE IN PRN (20:52)
[2021-07-07 22:21] VITALS: BP 106/43
[2021-07-08 05:00] VITALS: BP 95/56
[2021-07-08 07:08] LABS: Potassium 4.1 mmol/L (3.5-5.1)
[2021-07-08 07:14] LABS: BUN/Creatinine Ratio 37.8; Bilirubin, Total 0.4 mg/dL (0.2-1.0); Calcium 8.1 mg/dL (8.5-10.1); Total Protein 5.2 g/dL (6.4-8.2)
[2021-07-08] MEDS: BUDESONIDE (INHALATION) 0.5 MG/2 ML NEB NEB SCH ×2 (08:28→20:37)
[2021-07-08 09:00] VITALS: BP 119/93
[2021-07-08] MEDS: AZITHROMYCIN 500MG/ 250ML 250 ML IV SCH (10:03)
[2021-07-08] MEDS: DexAMETHasone SOD PHOS 10MG/1ML VIAL INJ IV SCH (10:03)
[2021-07-08] MEDS: FERROUS SULFATE 325mg EC TAB PO SCH ×2 (10:03→17:44)
[2021-07-08] MEDS: ENOXAPARIN SOD 40 MG/0.4 ML SYRINGE SC SCH ×2 (10:04→22:27)
[2021-07-08] MEDS: CHOLECALCIFEROL (VITD3) 2,000 UNIT CAP/TAB PO SCH (10:04)
[2021-07-08] MEDS: ASCORBIC ACID 1,000 MG TAB PO SCH (10:04)
[2021-07-08] MEDS: ZINC SULFATE 220mg CAP or TAB PO SCH (10:04)
[2021-07-08 13:00] VITALS: BP 117/52
[2021-07-08] MEDS: REMDESIVIR 100mg 100 MG in SODIUM CHL 0.9% 230 ML IV SCH (14:56)
[2021-07-08 17:00] VITALS: BP 114/87
[2021-07-08 23:00] VITALS: BP 98/51
[2021-07-09 05:00] VITALS: BP 94/67
[2021-07-09 09:00] VITALS: BP 122/91
[2021-07-09] MEDS: DexAMETHasone SOD PHOS 10MG/1ML VIAL INJ IV SCH (10:02)
[2021-07-09] MEDS: CHOLECALCIFEROL (VITD3) 2,000 UNIT CAP/TAB PO SCH (10:02)
[2021-07-09] MEDS: FERROUS SULFATE 325mg EC TAB PO SCH (10:02)
[2021-07-09] MEDS: ASCORBIC ACID 1,000 MG TAB PO SCH (10:03)
[2021-07-09] MEDS: ZINC SULFATE 220mg CAP or TAB PO SCH (10:03)
[2021-07-09] MEDS: ENOXAPARIN SOD 40 MG/0.4 ML SYRINGE SC SCH (10:47)
[2021-07-09 13:19] VITALS: BP 111/53
[2021-07-09 14:38] VITALS: BP 111/53
== END 2021-07-09 16:00 | disposition home or self-care (01) | DRG 137 ==
LOC: EDBD 14:27 → EDUNIT# 14:27 → ER 14:27 → TELE 21:14 → TELE-WESTW 22:30 → WEST WING 07-05 12:34 → TELE-WESTW 07-05 12:39
PROVIDERS: ADMIT Nurse Practitioner; ATTEND Internal Medicine
PROC: XW033E5 Introduction of Remdesivir Anti-infective into Peripheral Vein, Percutaneous Approach, New Technology Group 5 (ICD-10-PCS; principal; 2021-07-04)
DX: U07.1 COVID-19 (principal); J96.01 Acute respiratory failure with hypoxia; J12.82 Pneumonia due to coronavirus disease 2019; D68.59 Other primary thrombophilia; E83.51 Hypocalcemia; F03.90 Unspecified dementia, unspecified severity, without behavioral disturbance, psychotic disturbance, mood disturbance, and anxiety; D53.9 Nutritional anemia, unspecified; E86.1 Hypovolemia; Z82.49 Family history of ischemic heart disease and other diseases of the circulatory system
CPT/HCPCS: 36415; 36600; 70450; 71045; 80053; 81001; 82306; 82607; 82728; 82746; 82805; 83605; 83615; 83735; 84443; 84484; 85025; 85379; 86141; 86850; 86900; 86901; 87426; 93005; 94640; 96365; 96375; 97163; G0378; J0696; J1100

== ENCOUNTER 2022-04-29 18:11 | Emergency (ER) | payer MEDICARE, MEDICAID ==
[~2022-04-29] VITALS: Ht 157.5 cm; Wt 70.4 kg
[2022-04-29] MEDS ORDERED: ONDANSETRON HCL 4 MG/2 ML VIAL IV ONE (18:45)
[2022-04-29] MEDS ORDERED: SODIUM CHLORIDE 0.9% 500 ML IV ONE (18:45)
[2022-04-29 19:02] LABS: Eosinophils # (auto) 0 10 ^3/uL (0-0.8)
[2022-04-29 19:03] LABS: Basophils # (auto) 0.1 10 ^3/uL (0-0.2); Basophils % (auto) 0.5 % (0.0-2.0); Hematocrit 29.3 % (36.0-46.0); Hemoglobin 9.8 g/dL (12.2-16.2); Lymphocytes # (auto) 1.1 10 ^3/uL (0.4-5.4); Lymphocytes % (auto) 7.9 % (10.0-50.0); Mean Corpuscular Hemoglobin 37.1 pg (28.0-32.0); Mean Corpuscular Hgb Conc. 33.5 g/dL (32.0-36.0); Mean Corpuscular Volume 110.6 fL (80.0-100.0); Monocytes # (auto) 1.2 10 ^3/uL (0-1.3); Monocytes % (auto) 8.9 % (0.0-12.0); Neutrophils # (auto) 11.2 10 ^3/uL (1.6-8.6); Neutrophils % (auto) 82.7 % (37.0-80.0); Nucleated Red Blood Cells % 0.1 %; Red Blood Cells 2.65 10^6/uL (4.0-5.20); Red Cell Distribution Width 16.5 % (11.8-14.3); White Blood Cell 13.6 10^3/uL (4.4-10.8)
[2022-04-29 19:18] LABS: Albumin 4.2 g/dL (3.4-5.0); BUN/Creatinine Ratio 14.1; Calcium 8.2 mg/dL (8.5-10.1); Magnesium 2.3 mg/dL (1.6-2.6)
[2022-04-29 19:21] LABS: Bilirubin, Total 2.6 mg/dL (0.2-1.0); Total Protein 7.5 g/dL (6.4-8.2)
[2022-04-30 04:30] VITALS: BP 101/59
== END 2022-04-29 22:59 | disposition home or self-care (01) ==
LOC: EDBD 18:11 → ER 18:14
DX: U07.1 COVID-19 (principal)
CPT/HCPCS: 36415; 71045; 74176; 80053; 83735; 84484; 85025; 87426; 87804; 93005; 99285; J7030; J7040; 96360

== ENCOUNTER 2024-11-18 17:14 | Inpatient (IN) | payer MEDICARE, MEDICAID ==
[~2024-11-18] VITALS: Ht 160 cm; Wt 62.3 kg
--- NOTE | 2024-11-18 19:05 | ED.PDOC ---
GI ASSESSMENT HPI Comments 84 y/o F, MARY, presents to the ED for CC of diarrhea. Patient states, she has been experiencing diarrhea onset, today (11/18/24). Patient comments, "I was on the toilet and it just started coming out like water"; patient endorses x1 episode of diarrhea. Patient denies LOC, fever, chills, nausea, vomiting, or diarrhea. No other symptoms or modifying factors present at this time. Chief Complaint: Diarrhea Time Seen by MD: 18:54 Primary Care Provider: UNKNOWN Reviewed Notes: Nurses Notes, Medications, Allergies Allergies: Coded Allergies: NO KNOWN ALLERGIES (Unverified , 04/29/11) Home Meds Active Scripts Cephalexin (Keflex) 500 Mg Cap, 1 CAP PO BID, #4 CAP Prov:JHON DOW MD 02/16/18 Multiple Vitamin (Mvi Tab) 1 Tab Tb, 1 TAB PO DAILY, #90 Prov:JHON DOW MD 02/16/18 Reported Medications Latanoprost (Xalatan) 0.005 % Roya, 1 DROP EACHEYE QPM, #2.5 ML 6 Refills 08/08/19 Dorzolamide-Timolol (Cosopt) 1 Ml Roya, 1 ML OP BID 04/30/11 Information Source: Patient, Emergency Med Personnel Mode of Arrival: EMS Timing: Hours Duration: Since onset Prehospital treatment: None Quality: None Vomitus: None Stool: Watery Severity: Moderate Recent: None Recent Hx of: None Pain Location: None Modifying Factors: Nothing Associated sign and symptoms: Diarrhea Past Medical History PAST MEDICAL HISTORY: Anemia Surgical History: Hysterectomy HIDE AND SKIN COLERER History: Denies all HIDE AND SKIN COLERER Hx Family History Family History: Reviewed,noncontributory to illness Social History Smoker: Non-Smoker Alcohol: Denies ETOH Use Drugs: Denies Drug Use Lives In: Home Constitutional: denies: chills, diaphoresis, fatigue, fever, malaise, sweats, weakness, others EENTM: denies: blurred vision, double vision, ear bleeding, ear discharge, ear drainage, ear pain, ear ringing, eye pain, eye redness, hearing loss, mouth pain, mouth swelling, nasal discharge, nose bleeding, nose congestion, nose pain, photophobia, tearing, throat pain, throat swelling, voice changes, others Respiratory: denies: cough, hemoptysis, orthopnea, SOB at rest, shortness of breath, SOB with excertion, stridor, wheezing, others Cardiovascular: denies: chest pain, dizzy spells, diaphoresis, Dyspnea on exertion, edema, irregular heart beat, left arm pain, lightheadedness, palpitations, PND, syncope, others Gastrointestinal: reports: diarrhea; denies: abdomen distended, abdominal pain, blood streaked bowels, constipated, dysphagia, difficulty swallowing, hematemesis, melena, nausea, poor appetite, poor fluid intake, rectal bleeding, rectal pain, vomiting, others Genitourinary: denies: abnormal vagina bleeding, burning, dyspareunia, dysuria, flank pain, frequency, hematuria, incontinence, pain, , vagina discharge, urgency, others Neurological: denies: dizziness, fainting, headache, left sided numbness, left sided weakness, numbness, paresthesia, pre-existing deficit, right sided numbness, right sided weakness, seizure, speech problems, tingling, tremors, weakness, others Musculoskeletal: denies: back pain, gout, joint pain, joint swelling, muscle pain, muscle stiffness, neck pain, others Integumetry: denies: bruises, change in color, change in hair/nails, dryness, laceration, lesions, lumps, rash, wounds, others Allergic/Immunocompromised: denies: Difficulty Healing, Frequent Infections, Hives, Itching, others Hematologic/Lymphatic: denies: anemia, blood clots, easy bleeding, easy bruising, swollen glands, others Endocrine: denies: excessive hunger, excessive sweating, excessive thirst, excessive urination, flushing, intolerance to cold, intolerance to heat, unexplained weight gain, unexplained weight loss, others Psychiatric: denies: anxiety, bipolar disorder, depression, hopeless, panic disorder, schizophrenia, sleepless, suicidal, others All Other Systems: Reviewed and Negative Physical Exam General Appearance: No Apparent Distress, Normal HEENT: Normal ENT Inspection, Pharynx Normal Neck: Full Range of Motion, Non-Tender, Normal, Normal Inspection Respiratory: Chest Non-Tender, Lungs Clear, No Accessory Muscle Use, No Respiratory Distress, Normal Breath Sounds Cardiovascular: No Edema, No Murmur, No Gallop, Normal Peripheral Pulses, Regular Rate/Rhythm Breast Exam: Deferred Gastrointestinal: No Organomegaly, Non Tender, No Pulsatile Mass, Soft, Other (hyperactive bowel sounds) Genitalia: Deferred Pelvic: Deferred Rectal: Deferred Extremities: No calf tenderness, Normal capillary refill, Normal inspection, Normal range of motion, Non-tender, No pedal edema Musculoskeletal : Apperance: Normal Neurologic: Alert, periodontist II-XII nml as Tested, No Motor Deficits, Normal Affect, Normal Mood, No Sensory Deficits Cerebellar Function: Normal Reflexes: Normal Skin: Dry, Normal Color, Warm Lymphatic: No Adenopathy Was a procedure done? Was a procedure done?: No GI differential Dx Differential Diagnosis: Bowel Obstruction, Constipation, Diverticular disease, Gastritis/PUD, Gastroenteritis, GI hemorrhage, Inflammatory BD, Dehydration, Electrolyte Imbalance, Food Poisoning, Bacterial, Viral, Hypovolemia, Impaction, Renal Failure, Ischemic Bowel, Other (lower gib, colitis) X-Ray, Labs, Meds, VS Vital Signs Date Time Temp Pulse Resp B/P (MAP) Pulse Ox O2 Delivery O2 Flow Rate FiO2 11/18/24 18:30 99.3 82 20 96/65 (75) 93 99.3 11/18/24 18:30 Room Air* 0 21 11/18/24 17:15 98.6 86 16 102/45 (64) 94 98.6 Lab Test 11/18/24 19:15 Range/Units White Blood Count 5.9 4.4-10.8 10^3/uL Red Blood Count 2.08 L 4.0-5.20 10^6/uL Hemoglobin 7.5 L 12.2-16.2 g/dL Hematocrit 23.0 L 36.0-46.0 % Mean Corpuscular Volume 110.8 H 80.0-100.0 fL Mean Corpuscular Hemoglobin 36.4 H 28.0-32.0 pg Mean Corpuscular Hemoglobin Concent 32.8 32.0-36.0 g/dL Red Cell Distribution Width 26.6 H 11.8-14.3 % Platelet Count 381 140-450 10^3/uL Mean Platelet Volume 8.1 6.9-10.8 fL Neutrophils (%) (Auto) 79.5 37.0-80.0 % Lymphocytes (%) (Auto) 10.5 10.0-50.0 % Monocytes (%) (Auto) 7.1 0.0-12.0 % Eosinophils (%) (Auto) 1.8 0.0-7.0 % Basophils (%) (Auto) 1.1 0.0-2.0 % Neutrophils # (Auto) 4.7 1.6-8.6 10 ^3/uL Lymphocytes # (Auto) 0.6 0.4-5.4 10 ^3/uL Monocytes # (Auto) 0.4 0-1.3 10 ^3/uL Eosinophils # (Auto) 0.1 0-0.8 10 ^3/uL Basophils # (Auto) 0.1 0-0.2 10 ^3/uL Nucleated Red Blood Cells 0.1 % Platelet Estimate Adequate Large Platelets Few Anisocytosis (manual) Moderate Macrocytosis Marked Tear Drop Cells Few Marah Cells Few Schistocytes Few Sodium Level 142 136-145 mmol/L Potassium Level 3.9 3.5-5.1 mmol/L Chloride Level 110 H 98-107 mmol/L Carbon Dioxide Level 25 20-31 mmol/L Anion Gap Pending Blood Urea Nitrogen 10 9-23 mg/dL Creatinine 0.46 L 0.550-1.02 mg/dL Glomerular Filtration Rate Calc 93 >90 mL/min BUN/Creatinine Ratio 21.7 H 10.0-20.0 Serum Glucose 112 H 74-106 mg/dL Calcium Level 8.2 L 8.7-10.4 mg/dL Current Medications Medications (Trade) Dose Ordered Sig/E[place] Route Start Time Stop Time Status Last Admin Sodium Chloride 500 ml @ 500 mls/hr Q1H ONCE IV 11/18/24 19:00 11/18/24 19:59 DC 11/18/24 19:07 Time of 1ST Reevaluation: 19:26 Reevaluation 1ST: Unchanged Time of 2ND Reevaluation: 20:20 Reevaluation 2ND: Improved Patient Education/Counseling: Diagnosis, Treatment, Prognosis, Need For Follow Up Family Education/Counseling: No Family Present Additional Information The following tests were ordered, and results were reviewed by me: CBC, CMP, CT ABD PEL Additional Information was gathered from interviewing the following independent historians: EMS I reviewed and agreed with the following test results read by other providers: CT ABD PEL I discussed treatment and results with medical personnel and: patient Comprehensive systems review obtained and negative except for what is stated in the HPI. pt is hard of hearing, but is alert, pleasant. the workup shows she is anemic, but the ct is unremarkable. she has not had any further diarrhea while here. she will be admitted for hydration and further workup and treatment for diarrhea causing dehydration, hypotension. she is not septic Departure 1 Departure Time of Disposition: 20:18 Impression: Primary Impression: Anemia Qualified Codes: D64.9 - Anemia, unspecified Additional Impressions: Diarrhea Qualified Codes: R19.7 - Diarrhea, unspecified Dehydration Hypotension Qualified Codes: E86.1 - Hypovolemia Disposition: ADMITTED INPATIENT Admit to: Tele Condition: Serious Discharged With: Self Critical Care Note Critical Care Time?: Yes (45 min-critical care time only) Critical care comment: due to concerns for patient's condition deteriorating, the care required my highest level of attention and readiness to intervene. i assessed the patient's condition, ordered the proper tests and treatments, reassessed for response and reviewed the results. i communicated with medical personnel and formulated a plan of care. total critical care time does not include any procedures Stability Stability form required: No Heart Score Heart Score: Heart Score Response (Comments) Value History N/A 0 EKG N/A 0 Age N/A 0 Risk Factors N/A 0 Troponin N/A 0 Total 0 I personally scribed for MARCELLO SMITH MD ([email or web address]) on 11/18/24 at 19:05. Electronically submitted by Galilea Godfrey ([email or web address]). I personally scribed for MARCELLO SMITH MD ([email or web address]) on 11/18/24 at 19:18. Electronically submitted by Galilea Godfrey ([email or web address]). MARCELLO SMITH MD November 18, 2024 19:05
[2024-11-18] MEDS: SODIUM CHLORIDE 0.9% 500 ML IV ONE (19:07)
--- NOTE | 2024-11-18 19:36 | DVH ---
Exam: CT CT AB PEL WO CON-NO ORAL OR IV History: colitis Comparison Study: CT ABD PELVIS WO CONTRAST on DOS: 04/29/22, CT ABD PELVIS WO CONTRAST on DOS: TECHNIQUE: Multidetector CT of the abdomen was performed from lung bases to pubic symphysis. Imaging was performed without IV contrast. Axial, coronal and sagittal multiplanar reformats were obtained fr om the axial data set by the technologist. Radiation Dose Information: CT Dose: CTDI volume is 5.69 mGy. Dose-length product is 284.13 mGy*cm FINDINGS: Evaluation of solid organs is limited due to lack of intravenous contrast use. Findings: Lung Bases: No acute or significant lung base finding. Normal heart size. Coronary calcification sug gesting coronary artery disease. No pleural or pericardial effusion. Liver: The liver is normal in size. No focal lesions. Gallbladder and Biliary Tree: The gallbladder is surgically absent with clips in gallbladder fossa. T he common bile duct and the biliary radicles appear Spleen: Unremarkable Pancreas: The pancreas is grossly normal in appearance. Adrenal Glands: Unremarkable Kidneys: Kidneys are grossly normal without calculi or hydronephrosis. Bladder: Grossly unremarkable for degree of distention. Bowel: The stomach is grossly normal in appearance. Small bowel and colon are normal in caliber and d istribution. The appendix is not visualized; however, no secondary findings of acute appendicitis id entified. Scattered diverticulosis mostly of the sigmoid colon. Ascites: Absent Lymphadenopathy: No mesenteric, retroperitoneal or periportal lymphadenopathy. Abdominal Wall and Mesentery: Unremarkable. Vasculature: The visualized abdominal aorta is normal in size and caliber. Evaluation of abdominal a nd pelvic vessels is limited due to lack of intravenous contrast. There is calcified plaque of the ab dominal aorta iliac vessels suggesting atherosclerotic changes Pelvic Organs: Unremarkable Musculoskeletal: No aggressive focal bony lesions, acute fractures or dislocation. Soft tissues: Unremarkable IMPRESSION: 1. No acute abdominal or pelvic finding. 2. Radiation optimization: All CT scans at this facility use at least one of these dose optimization techniques: automated exposure control mA and/or kV adjustment per patient size (includes targeted e xams where dose is matched to clinical indication) or iterative reconstruction.
[2024-11-18 19:46] LABS: Basophils # (auto) 0.1 10 ^3/uL (0-0.2); Basophils % (auto) 1.1 % (0.0-2.0); Eosinophils # (auto) 0.1 10 ^3/uL (0-0.8); Eosinophils % (auto) 1.8 % (0.0-7.0); Hemoglobin 7.5 g/dL (12.2-16.2); Lymphocytes # (auto) 0.6 10 ^3/uL (0.4-5.4); Lymphocytes % (auto) 10.5 % (10.0-50.0); Mean Corpuscular Hemoglobin 36.4 pg (28.0-32.0); Mean Corpuscular Hgb Conc. 32.8 g/dL (32.0-36.0); Mean Corpuscular Volume 110.8 fL (80.0-100.0); Monocytes # (auto) 0.4 10 ^3/uL (0-1.3); Monocytes % (auto) 7.1 % (0.0-12.0); Neutrophils # (auto) 4.7 10 ^3/uL (1.6-8.6); Neutrophils % (auto) 79.5 % (37.0-80.0); Nucleated Red Blood Cells % 0.1 %; Platelet Count (auto) 381 10^3/uL (140-450); Red Blood Cells 2.08 10^6/uL (4.0-5.20); Red Cell Distribution Width 26.6 % (11.8-14.3); White Blood Cell 5.9 10^3/uL (4.4-10.8)
[2024-11-18 19:50] VITALS: PULSE 83; RESP 19; O2SAT 94
[2024-11-18 19:59] LABS: Potassium 3.9 mmol/L (3.5-5.1); Sodium 142 mmol/L (136-145)
[2024-11-18 20:00] LABS: Chloride 110 mmol/L (98-107)
[2024-11-18 20:02] LABS: Anisocytosis Moderate; Calcium 8.2 mg/dL (8.7-10.4); Large Platelets FEW; Platelet Estimate Adequate
[2024-11-18 20:03] LABS: Macrocytosis Marked
[2024-11-18 20:05] LABS: BUN/Creatinine Ratio 21.7 (10.0-20.0); Blood Urea Nitrogen 10 mg/dL (9-23); Tear Drop Cells FEW
[2024-11-18 20:07] LABS: Glucose 112 mg/dL (74-106)
[2024-11-18 20:20] LABS: Anion Gap 7 (5-15); Carbon Dioxide 25 mmol/L (20-31)
--- NOTE | 2024-11-18 20:54 | DVHHP2 ---
History of Present Illness Reason for Visit: acute gastroenteritis History of Present Illness 84-year-old female with PMHx of dementia and chronic macrocytic anemia presented to the ED with acute onset diarrhea that began earlier today. Daughter and RN reports two episodes: one at home and one after arrival at the ED. Family notes that multiple household members are experiencing similar symptoms. The daughter describes the diarrhea as brown, non-bloody, and watery. She denies fever, chills, nausea, vomiting, or abdominal pain. She reports that during similar episodes in the past, she becomes notably weak and frail, which prompted todays ED visit. Labs: Hemoglobin 7.5 g/dL (macrocytic pattern) Elevated MCV, bilirubin (total 1.9), AST and ALT above 50 Iron panel WNL Additional labs ordered: reticulocyte count, direct bilirubin, haptoglobin, hepatic viral panel Imaging: CT abdomen/pelvis: No acute intra-abdominal findings. No signs of appendicitis or obstruction. Scattered diverticulosis, surgically absent gallbladder. No lymphadenopathy. Mild coronary calcifications. Review of Systems Constitutional: No: Fever, Chills, Sweats, Weakness, Malaise, Other Eyes: No: Pain, Vision change, Conjunctivae inflammation, Eyelid inflammation, Other, Redness ENT: No: Ear pain, Ear discharge, Nose pain, Nose discharge, Nose congestion, Mouth pain, Mouth swelling, Throat pain, Throat swelling, Other Respiratory: No: Cough, Dry, Shortness of breath, SOB with excertion, Wheezing, Hemoptysis, Pleuritic Pain, Sputum, Wheezing, Other Cardiovascular: No: Chest Pain, Palpitations, Orthopnea, Paroxysmal Noc. Dyspnea, Edema, Lt Headedness, Other Gastrointestinal: Diarrhea; No: Nausea, Vomiting, Abdominal Pain, Constipation, Melena, Hematochezia, Other Genitourinary: No Dysuria, No Frequency, No Incontinence, No Hematuria, No Retention, No Other Musculoskeletal: No: other, neck pain, shoulder pain, arm pain, back pain, hand pain, leg pain, foot pain Skin: No: Rash, Lesions, Jaundice, Bruising, Other Neurological: No: Weakness, Numbness, Incoordination, Change in speech, Confusion, Seizures, Other Allergies: Coded Allergies: NO KNOWN ALLERGIES (Unverified , 04/29/11) Medications Current Medications Medications Dose Ordered Sig/Eugene Route Start Time Stop Time Status Last Admin Dose Admin Dextrose/Sodium Chloride 1,000 ml @ 60 mls/hr [id number] IV 11/18/24 21:00 UNV Exam Vital Signs Vital Signs Date Time Temp Pulse Resp B/P (MAP) Pulse Ox O2 Delivery O2 Flow Rate FiO2 11/18/24 19:50 99.6 83 19 129/45 (73) 94 99.6 11/18/24 18:30 Room Air* 0 21 General Appearance: Alert, Oriented X3, Other (baseline oriented x1 ) HEENT: Atraumatic, PERRLA Respiratory: Clear to auscultation, Normal air movement Cardiovascular: Regular rate, Normal S1 Abdominal: Normal bowel sounds, Soft Extremities: No clubbing, No cyanosis Skin: No rashes, No breakdown Neuro: Normal gait, Normal speech, Strength at /5 X4 ext, Normal tone Psych/Mental Status: Mental status NL Labs/Xrays Labs Test 11/18/24 19:15 Range/Units White Blood Count 5.9 4.4-10.8 10^3/uL Red Blood Count 2.08 L 4.0-5.20 10^6/uL Hemoglobin 7.5 L 12.2-16.2 g/dL Hematocrit 23.0 L 36.0-46.0 % Mean Corpuscular Volume 110.8 H 80.0-100.0 fL Mean Corpuscular Hemoglobin 36.4 H 28.0-32.0 pg Mean Corpuscular Hemoglobin Concent 32.8 32.0-36.0 g/dL Red Cell Distribution Width 26.6 H 11.8-14.3 % Platelet Count 381 140-450 10^3/uL Mean Platelet Volume 8.1 6.9-10.8 fL Neutrophils (%) (Auto) 79.5 37.0-80.0 % Lymphocytes (%) (Auto) 10.5 10.0-50.0 % Monocytes (%) (Auto) 7.1 0.0-12.0 % Eosinophils (%) (Auto) 1.8 0.0-7.0 % Basophils (%) (Auto) 1.1 0.0-2.0 % Neutrophils # (Auto) 4.7 1.6-8.6 10 ^3/uL Lymphocytes # (Auto) 0.6 0.4-5.4 10 ^3/uL Monocytes # (Auto) 0.4 0-1.3 10 ^3/uL Eosinophils # (Auto) 0.1 0-0.8 10 ^3/uL Basophils # (Auto) 0.1 0-0.2 10 ^3/uL Nucleated Red Blood Cells 0.1 % Platelet Estimate Adequate Large Platelets Few Anisocytosis (manual) Moderate Macrocytosis Marked Tear Drop Cells Few [place] Cells Few Schistocytes Few Sodium Level 142 136-145 mmol/L Potassium Level 3.9 3.5-5.1 mmol/L Chloride Level 110 H 98-107 mmol/L Carbon Dioxide Level 25 20-31 mmol/L Anion Gap 7 5-15 Blood Urea Nitrogen 10 9-23 mg/dL Creatinine 0.46 L 0.550-1.02 mg/dL Glomerular Filtration Rate Calc 93 >90 mL/min BUN/Creatinine Ratio 21.7 H 10.0-20.0 Serum Glucose 112 H 74-106 mg/dL Calcium Level 8.2 L 8.7-10.4 mg/dL Assessment/Plan Assessment/Plan #Acute gastroenteritis #Hypotension resolved #Dehydration resolved #Acute on Chronic macrocytic anemia #Hyperbilirubinemia #Dementia Admit Swallow evaluation D5W+ 1/2 NS 90CC/H HB 7.5 elevated MCV, macrocytosis, elevated bilirubin pending reticulocytes, direct bilirubin and haptoglobin Case discussed with the daughter, full code Stool studies pending Case discussed with Dr Thibodeaux Plan discussed with: Patient, Other (rn) My Orders Orders - IZABELA YOUNG Procedure Category Date Status Time Admit ADMIT 11/18/24 Transmitted 20:50 Code Status CODE 11/18/24 Transmitted 20:50 Vital Signs YAMILEX 11/18/24 In Process 20:50 Review Orders With YAMILEX 11/18/24 In Process Adm.Md 20:50 Notify Of Changes YAMILEX 11/18/24 In Process From Base 20:50 Advance Directive YAMILEX 11/18/24 In Process 20:50 D5w/Sod Chl 0.45% PHA 11/18/24 Logged (D5w 1/2ns) 21:00 Patient Condition ORDERS 11/18/24 Transmitted 20:50 Allergies YAMILEX 11/18/24 In Process 20:50 Drug Screen LAB 11/18/24 Logged 20:50 Date of Service: November 18, 2024 Billing Provider: CHAYITO THIBODEAUX MD Common Visit Codes: [id number] INP/OBS CARE (HIGH) Secondary Visit Codes: [id number] CARE PLAN 30 MINUTES IZABELA YOUNG RESIDENT November 18, 2024 20:54
[2024-11-18] MEDS ORDERED: D5W/SOD CHL 0.45% 1,000 ML IV SCH (21:00)
[2024-11-18 21:44] LABS: Albumin 4.1 g/dL (3.2-4.8); Alkaline Phosphatase 90 U/L (46-116); Anion Gap 8 (5-15); BUN/Creatinine Ratio 19.6 (10.0-20.0); Blood Urea Nitrogen 10 mg/dL (9-23); Calcium 8.8 mg/dL (8.7-10.4); Carbon Dioxide 23 mmol/L (20-31); Potassium 3.9 mmol/L (3.5-5.1); Sodium 142 mmol/L (136-145); Total Protein 6.2 g/dL (5.7-8.2)
[2024-11-18 21:45] LABS: Alanine Aminotransferase 53 U/L (7-40); Aspartate Aminotransferase 55 U/L (13-40); Bilirubin, Total 1.9 mg/dL (0.2-1.0); Chloride 111 mmol/L (98-107); Glucose 112 mg/dL (74-106)
[2024-11-18] MEDS: PANTOPRAZOLE 40 MG/10 ML VIAL INJ IV ONE (21:45)
[2024-11-18 21:51] LABS: Ferritin > 1650.0 ng/mL (10-291)
[2024-11-18] MEDS: D5W/SOD CHL 0.45% 1,000 ML IV SCH (21:59)
--- NOTE | 2024-11-18 22:08 | DVH ---
CHEST RADIOGRAPH Indication: dyspnea Technique: Single frontal view of the chest was obtained COMPARISON: Chest AP 04/29/2022 FINDINGS: Lines and Tubes: None Lungs: No evidence of pulmonary infiltrates or edema. Pleura: No effusion. No pneumothorax. Cardiomediastinal contours: Unremarkable IMPRESSION: No acute disease. No significant change compared to the prior chest x-ray from April 2022.
[2024-11-19 00:12] LABS: COVID19 ANTIGEN SOFIA FIA NEGATIVE (NEGATIVE)
[2024-11-19 06:43] LABS: Albumin 3.5 g/dL (3.2-4.8); Alkaline Phosphatase 76 U/L (46-116); Anion Gap 7 (5-15); Aspartate Aminotransferase 36 U/L (13-40); BUN/Creatinine Ratio 18.2 (10.0-20.0); Carbon Dioxide 23 mmol/L (20-31); Glucose 102 mg/dL (74-106); Potassium 3.7 mmol/L (3.5-5.1); Sodium 143 mmol/L (136-145)
[2024-11-19 06:51] LABS: Alanine Aminotransferase 40 U/L (7-40); Bilirubin, Direct 0.8 mg/dL (<0.3); Bilirubin, Total 1.8 mg/dL (0.2-1.0); Blood Urea Nitrogen 8 mg/dL (9-23); Calcium 8.1 mg/dL (8.7-10.4); Chloride 113 mmol/L (98-107); Total Protein 5.2 g/dL (5.7-8.2)
[2024-11-19 07:45] LABS: Basophils # (auto) 0.1 10 ^3/uL (0-0.2); Eosinophils # (auto) 0.1 10 ^3/uL (0-0.8); Lymphocytes # (auto) 1.1 10 ^3/uL (0.4-5.4); Mean Corpuscular Volume 110.8 fL (80.0-100.0); Monocytes # (auto) 0.4 10 ^3/uL (0-1.3); Neutrophils # (auto) 1.7 10 ^3/uL (1.6-8.6); Platelet Count (auto) 323 10^3/uL (140-450); White Blood Cell 3.4 10^3/uL (4.4-10.8)
[2024-11-19 07:46] LABS: Basophils % (auto) 2.1 % (0.0-2.0); Lymphocytes % (auto) 31.3 % (10.0-50.0); Mean Corpuscular Hgb Conc. 32.5 g/dL (32.0-36.0); Monocytes % (auto) 11.7 % (0.0-12.0); Neutrophils % (auto) 50.9 % (37.0-80.0); Nucleated Red Blood Cells % 0.1 %; Red Blood Cells 1.72 10^6/uL (4.0-5.20)
[2024-11-19 07:57] LABS: Red Cell Distribution Width 25.6 % (11.8-14.3)
[2024-11-19 08:00] VITALS: PULSE 78; RESP 19; O2SAT 94
[2024-11-19 08:00] LABS: Hemoglobin 6.2 g/dL (12.2-16.2)
[2024-11-19 08:31] LABS: Anisocytosis Moderate; Macrocytosis Marked; Ovalocytes FEW; Platelet Estimate Adequate; Target Cell FEW
[2024-11-19 09:57] LABS: Urine Bacteria None Seen /hpf (None Seen)
[2024-11-19] MEDS ORDERED: PANTOPRAZOLE 40 MG/10 ML VIAL INJ IV SCH (10:00)
[2024-11-19 10:16] LABS: Amphetamine Screen, Urine Neg (NEGATIVE); Barbiturate Scree,Urine Neg (NEGATIVE); Benzodiazephine Screen, Urine Neg (NEGATIVE); Cannabinoid Screen, Urine Neg (NEGATIVE); Cocaine Screen, Urine Neg (NEGATIVE); Opiate Scree,Urine Neg (NEGATIVE); Phencyclidine Screen, Urine Neg (NEGATIVE); Urine Blood Negative /uL (Negative); Urine Clarity Clear (Clear); Urine Color Light-Yellow (Yellow); Urine Hyaline Cast FEW /lpf (0 - 2); Urine Protein, UAD Negative (Negative); Urine Specific Gravity 1.009 (1.001-1.035); Urine Squamous Epithelial Cell FEW /hpf (<5); Urine Urobilinogen Normal (Negative); Urine WBC 11 /HPF (0-5)
[2024-11-19] MEDS: FLORASTOR (S. BOULARDII) 250 MG CAP PO SCH (10:54)
[2024-11-19] MEDS: PANTOPRAZOLE 40 MG/10 ML VIAL INJ IV SCH (10:54)
[2024-11-19] MEDS: metroNIDAZOLE 500MG/100ML 100 ML IV SCH (14:00)
[2024-11-19 14:25] VITALS: BP 118/44; PULSE 79; RESP 21; TEMP 98
[2024-11-19 14:45] VITALS: BP 113/55; PULSE 74; RESP 22; TEMP 98.4
[2024-11-19 17:46] VITALS: BP 140/63; PULSE 78; RESP 20; TEMP 98.1
--- NOTE | 2024-11-19 19:04 | DVHPNRES ---
Progress Note Date Seen: November 19, 2024 Resident Creating Document: DOUGColleenGISELALAURIE RESIDENT Medical Necessity Reason Pt with a Central, PICC or Fol: No Subjective Review of Systems HPI 84-year-old female with PMHx of dementia and chronic macrocytic anemia presented to the ED with acute onset diarrhea that began earlier today. Daughter and RN reports two episodes: one at home and one after arrival at the ED. Family notes that multiple household members are experiencing similar symptoms. The daughter describes the diarrhea as brown, non-bloody, and watery. She denies fever, chills, nausea, vomiting, or abdominal pain. She reports that during similar episodes in the past, she becomes notably weak and frail, which prompted todays ED visit. Past medical history: Chronic microcytic anemia, dementia, bilateral hearing loss, glaucoma Past surgical history: Hysterectomy Social history: Patient does not smoke, no alcohol or drug use Home medications: Latanoprost, dorzolamide-timolol Review of systems Patient seen and examined at the bedside Patient is very hard of hearing but reports no abdominal pain She is incontinent Rectal examination performed because patient's hemoglobin dropped, stool occult blood was negative Objective vital signs Vital Sign Date Time Temp Pulse Resp B/P (MAP) Pulse Ox O2 Delivery O2 Flow Rate FiO2 11/19/24 17:46 98.1 78 20 140/63 98.1 11/19/24 16:00 96 11/19/24 08:00 Room Air* 0 21 medications Current Medications Medications Dose Ordered Sig/Eugene Route Start Time Stop Time Status Last Admin Dose Admin Metronidazole 100 ml @ 100 mls/hr Q8HR IV 11/19/24 14:00 Saccharomyces Boulardii 250 mg DAILY PO 11/19/24 10:00 11/19/24 10:54 250 MG Pantoprazole Sodium 40 mg DAILY IV 11/20/24 10:00 Examination Constitutional: Patient is very hard of hearing and could barely answer the questions Gen - no conjunctival pallor, no icterus, no cyanosis, no clubbing, no LAD, no edema . Skin - Patients skin is warm and dry and pale HEENT - normocephalic, atraumatic, moist mucous membranes. Neck - full ROM, no LAD, no JVD Pulmonary - B/L equal breath sounds, no crackles , no wheezing, no stridor. cardiovascular - regular S1,S2 heard. systolic murmurs heard at the RUSB. peripheral pulses normal radial 2+, pedal 2+. capillary refill normal <2 secs. GI - soft, nontender abdomen. no hepatospleenomegaly. bowel sounds normoactive Neurological - Patient is A/O X 1 . Bilateral upper extremity strength 3/5, bilateral lower extremity strength 3/5, no facial droop, normal speech, no tremor, no sensory deficiets. laboratory and microbiology Laboratory Tests 11/19/24 05:22 11/19/24 05:21 Test 11/19/24 05:22 Range/Units Serum Glucose 102 74-106 mg/dL Problem List/Assessment/Plan Problem List/Assessment/Plan Acute infectious gastroenteritis ? Acute gastritis - CT abdomen pelvis without contrast shows no acute abdominal or pelvic finding - IV fluids - IV metronidazole - Protonix 40 mg IV - Florastor Acute severe anemia ?Hemolytic History of chronic microcytic anemia - retic count elevated - stool occult blood negative - iron studies elevated iron, low TIBC, elevated paracentesis saturation, elevated ferritin - 1 unit of PRBC transfused - monitor H&H History of dementia Glaucoma - on latanoprost DVT prophylaxis: Currently held because of low hemoglobin Goals of care discussed with the patient's daughter for over 27 minutes. Full code Plan discussed with Dr. Barkley Plan discussed with: Daughter, Other (SYLVIA Stiles) My Orders My Orders Orders - BETH FERNANDEZ Procedure Category Date Status Time Transfer Orders XFER 11/19/24 Transmitted 08:35 Pantoprazole PHA 11/20/24 In Process (Protonix) 10:00 CC Plasma Assessment Blood Product Administration S: 1430 Date of Service: November 19, 2024 Billing Provider: DANIELLE BARKLEY MD Common Visit Codes: [id number] INP/OBS CARE(HIGH) BETH FERNANDEZ RESIDENT November 19, 2024 19:04 DANIELLE BARKLEY MD November 19, 2024 22:25
[2024-11-19 19:40] VITALS: PULSE 78; RESP 21; O2SAT 94
[2024-11-19 19:47] LABS: Hemoglobin 8.9 g/dL (12.2-16.2)
[2024-11-19 19:51] LABS: Hematocrit 26.9 % (36.0-46.0)
[2024-11-19] MEDS: LATANOPROST 0.005 % OPTH(EYE) SOL 2.5ML EACHEYE SCH (22:00)
[2024-11-20] VITALS (11 sets, daily range): BP systolic 102–121; BP diastolic 44–67; PULSE 73–92; RESP 15–20; TEMP 97.8–99; O2SAT 92–99
[2024-11-20] MEDS ORDERED: CALCTAB62 OR (05:33)
[2024-11-20 06:41] LABS: Basophils # (auto) 0.1 10 ^3/uL (0-0.2); Eosinophils # (auto) 0.2 10 ^3/uL (0-0.8); Hemoglobin 8.3 g/dL (12.2-16.2); Monocytes # (auto) 0.6 10 ^3/uL (0-1.3); Neutrophils # (auto) 2.8 10 ^3/uL (1.6-8.6); White Blood Cell 4.8 10^3/uL (4.4-10.8)
[2024-11-20 06:45] LABS: Anion Gap 7 (5-15); Carbon Dioxide 24 mmol/L (20-31); Potassium 3.8 mmol/L (3.5-5.1); Sodium 142 mmol/L (136-145)
[2024-11-20 06:48] LABS: Basophils % (auto) 1.1 % (0.0-2.0); Eosinophils % (auto) 3.9 % (0.0-7.0); Hematocrit 24.8 % (36.0-46.0); Lymphocytes # (auto) 1.1 10 ^3/uL (0.4-5.4); Lymphocytes % (auto) 23.8 % (10.0-50.0); Mean Corpuscular Hgb Conc. 33.6 g/dL (32.0-36.0); Mean Corpuscular Volume 104.2 fL (80.0-100.0); Monocytes % (auto) 12.5 % (0.0-12.0); Neutrophils % (auto) 58.7 % (37.0-80.0); Platelet Count (auto) 316 10^3/uL (140-450); Red Blood Cells 2.38 10^6/uL (4.0-5.20)
[2024-11-20 06:49] LABS: Red Cell Distribution Width 29.7 % (11.8-14.3)
[2024-11-20 06:51] LABS: BUN/Creatinine Ratio 19.5 (10.0-20.0); Glucose 100 mg/dL (74-106)
[2024-11-20 06:52] LABS: Blood Urea Nitrogen 8 mg/dL (9-23); Chloride 111 mmol/L (98-107)
[2024-11-20 07:51] LABS: Platelet Estimate Adequate
[2024-11-20 07:52] LABS: Anisocytosis Marked; Large Platelets FEW; Macrocytosis Slight
[2024-11-20 07:54] LABS: Giant Platelets Few; Tear Drop Cells FEW
--- NOTE | 2024-11-20 09:15 | ECG ---
[facility] Test Date: 2024-11-19 Test Time: 09:59:05 Pat Name: ANTHONY ANDREWS Department: ED Room: 0222T Gender: F It Software Engineer: DANA : 1940 Requested By: MARCELLO SMITH Order Number: [id number] Reading MD: Jc Pinzon Measurements Intervals Natalia Rate: 74 P: 61 RI: 166 QRS: 68 QRSD: 78 T: 68 QT: 410 QTc: 455 Interpretive Statements Sinus rhythm Borderline abnrm T, anterolateral leads Baseline wander in lead(s) I,aVL,V1 Electronically Signed On 11-25-2024 11:14:50 PDT by Jc Pinzon Please click the below link to view image of tracing.
[2024-11-20] MEDS: PANTOPRAZOLE 40 MG/10 ML VIAL INJ IV SCH (10:21)
[2024-11-20] MEDS ORDERED: DORZ2SOL EACHEYE (13:56)
[2024-11-20] MEDS: SODIUM CHLORIDE 0.9% 250 ML IV ONE (14:15)
--- NOTE | 2024-11-20 21:31 | DVHPNRES ---
Progress Note Date Seen: November 20, 2024 Resident Creating Document: BETH FERNANDEZ RESIDENT Medical Necessity Reason Pt with a Central, PICC or Fol: No Subjective Review of Systems Patient seen and examined at the bedside Abdominal pain reported H&H stable Objective vital signs Vital Sign Date Time Temp Pulse Resp B/P (MAP) Pulse Ox O2 Delivery O2 Flow Rate FiO2 11/20/24 20:00 Room Air* 0 21 11/20/24 17:00 97.8 85 16 105/62 (76) 99 97.8 Total Intake and Output 11/19/24 11/19/24 11/20/24 15:00 23:00 07:00 Intake Total 270 ml 600 ml 500 ml Output Total 0 ml Balance 270 ml 600 ml 500 ml medications Current Medications Medications Dose Ordered Sig/Eugene Route Start Time Stop Time Status Last Admin Dose Admin Metronidazole 100 ml @ 100 mls/hr Q8HR IV 11/19/24 14:00 11/20/24 17:18 100 MLS/HR Saccharomyces Boulardii 250 mg DAILY PO 11/19/24 10:00 11/20/24 10:21 250 MG Pantoprazole Sodium 40 mg DAILY IV 11/20/24 10:00 11/20/24 10:21 40 MG Latanoprost 1 drop HS EACHEYE 11/19/24 22:00 Examination Constitutional: Patient is very hard of hearing and could barely answer the questions Gen - no conjunctival pallor, no icterus, no cyanosis, no clubbing, no LAD, no edema . Skin - Patients skin is warm and dry and pale HEENT - normocephalic, atraumatic, moist mucous membranes. Neck - full ROM, no LAD, no JVD Pulmonary - B/L equal breath sounds, no crackles , no wheezing, no stridor. cardiovascular - regular S1,S2 heard. systolic murmurs heard at the RUSB. peripheral pulses normal radial 2+, pedal 2+. capillary refill normal <2 secs. GI - soft, nontender abdomen. no hepatospleenomegaly. bowel sounds normoactive Neurological - Patient is A/O X 1 . Bilateral upper extremity strength 3/5, bilateral lower extremity strength 3/5, no facial droop, normal speech, no tremor, no sensory deficiets. laboratory and microbiology Laboratory Tests 11/20/24 05:58 Test 11/20/24 05:58 Range/Units Serum Glucose 100 74-106 mg/dL Problem List/Assessment/Plan Problem List/Assessment/Plan Acute infectious gastroenteritis ? Acute gastritis - CT abdomen pelvis without contrast shows no acute abdominal or pelvic finding - IV fluids - IV metronidazole - Protonix 40 mg IV - Florastor Acute severe anemia ?Hemolytic History of chronic microcytic anemia - retic count elevated - stool occult blood negative - iron studies elevated iron, low TIBC, elevated paracentesis saturation, elevated ferritin - 1 unit of PRBC transfused - H&H stable History of dementia Glaucoma - on latanoprost DVT prophylaxis: Currently held because of low hemoglobin Goals of care discussed with the patient's daughter Amita for over 26 minutes. Full code Plan discussed with Dr. Camara Plan discussed with: Daughter My Orders My Orders Orders - BETH FERNANDEZ Procedure Category Date Status Time Pt Request For Service PT 11/20/24 Logged 13:53 CC Plasma Assessment Blood Product Administration S: 1430 Date of Service: November 20, 2024 Billing Provider: TRAVIS CAMARA MD Common Visit Codes: [id number] INP/OBS CARE(HIGH) BETH FERNANDEZ RESIDENT November 20, 2024 21:31 TRAVIS CAMARA MD November 20, 2024 22:43
[2024-11-21] VITALS (8 sets, daily range): BP systolic 102–113; BP diastolic 39–62; PULSE 73–83; RESP 16–18; TEMP 98–98.7; O2SAT 92–95
[2024-11-21 05:58] LABS: Eosinophils # (auto) 0.1 10 ^3/uL (0-0.8); Monocytes # (auto) 0.5 10 ^3/uL (0-1.3); Neutrophils # (auto) 2.2 10 ^3/uL (1.6-8.6); White Blood Cell 3.9 10^3/uL (4.4-10.8)
[2024-11-21 06:00] LABS: Basophils # (auto) 0 10 ^3/uL (0-0.2); Basophils % (auto) 1.2 % (0.0-2.0); Eosinophils % (auto) 3.5 % (0.0-7.0); Hematocrit 23.3 % (36.0-46.0); Hemoglobin 7.9 g/dL (12.2-16.2); Lymphocytes % (auto) 25.8 % (10.0-50.0); Mean Corpuscular Hgb Conc. 34.1 g/dL (32.0-36.0); Mean Corpuscular Volume 102.6 fL (80.0-100.0); Monocytes % (auto) 13.7 % (0.0-12.0); Neutrophils % (auto) 55.8 % (37.0-80.0); Nucleated Red Blood Cells % 0.3 %; Platelet Count (auto) 305 10^3/uL (140-450); Red Blood Cells 2.27 10^6/uL (4.0-5.20); Red Cell Distribution Width 28.4 % (11.8-14.3)
[2024-11-21 06:21] LABS: Alkaline Phosphatase 71 U/L (46-116); Anion Gap 7 (5-15); BUN/Creatinine Ratio 22.7 (10.0-20.0); Blood Urea Nitrogen 10 mg/dL (9-23); Carbon Dioxide 23 mmol/L (20-31); Glucose 86 mg/dL (74-106); Potassium 3.9 mmol/L (3.5-5.1); Sodium 141 mmol/L (136-145)
[2024-11-21 06:22] LABS: Albumin 3.5 g/dL (3.2-4.8)
[2024-11-21 06:33] LABS: Alanine Aminotransferase 43 U/L (7-40); Aspartate Aminotransferase 58 U/L (13-40); Bilirubin, Total 1.8 mg/dL (0.2-1.0); Calcium 8.1 mg/dL (8.7-10.4); Chloride 111 mmol/L (98-107); Total Protein 5.2 g/dL (5.7-8.2)
[2024-11-21 09:02] LABS: Anisocytosis Moderate; Macrocytosis Slight; Platelet Estimate Adequate; Target Cell FEW
--- NOTE | 2024-11-21 16:05 | DVH ---
CLINICAL INFORMATION: Biliary obstruction. Mass. TECHNIQUE: Multisequence multiplanar MRI images of the abdomen were obtained without IV contrast. Victoriano durán T2-weighted MRCP images were obtained. 3D MRCP images were created. COMPARISON: CT of the abdomen and pelvis dated 04/29/2022. FINDINGS: Limited examination. Patient difficulty with breath holding. Given this limitation, there i s no biliary ductal dilatation. Common bile duct measures up to 6 mm in diameter, within normal limit s. No filling defect or stricture identified in the common bile duct. Pancreatic duct appears grossly unremarkable. Postsurgical changes of cholecystectomy. No other abnormality identified given the li mitations of the exam. Mild diffuse body wall edema. IMPRESSION: 1. Limited examination as described above. 2. No biliary ductal dilatation. No filling defect or stricture identified in the common bile duct gi kristal the limitations of the exam.
--- NOTE | 2024-11-21 21:41 | DVHPNRES ---
Progress Note Date Seen: November 21, 2024 Resident Creating Document: BETH FERNANDEZ RESIDENT Medical Necessity Reason Pt with a Central, PICC or Fol: No Subjective Review of Systems Patient seen and examined at the bedside no Abdominal pain reported hgb dropping patient reported thay she does not have a good appetite Objective vital signs Vital Sign Date Time Temp Pulse Resp B/P (MAP) Pulse Ox O2 Delivery O2 Flow Rate FiO2 11/21/24 20:00 Room Air* 0 21 11/21/24 16:44 98.0 83 16 108/62 (77) 92 98.0 Total Intake and Output 11/20/24 11/20/24 11/21/24 15:00 23:00 07:00 Intake Total 1200 ml 100 ml Balance 1200 ml 100 ml medications Current Medications Medications Dose Ordered Sig/Eugene Route Start Time Stop Time Status Last Admin Dose Admin Metronidazole 100 ml @ 100 mls/hr Q8HR IV 11/19/24 14:00 11/21/24 21:33 100 MLS/HR Saccharomyces Boulardii 250 mg DAILY PO 11/19/24 10:00 11/21/24 09:38 250 MG Pantoprazole Sodium 40 mg DAILY IV 11/20/24 10:00 11/21/24 09:37 40 MG Latanoprost 1 drop HS EACHEYE 11/19/24 22:00 11/21/24 21:32 1 DROP Examination Constitutional: Patient is very hard of hearing and could barely answer the questions Gen - no conjunctival pallor, no icterus, no cyanosis, no clubbing, no LAD, no edema . Skin - Patients skin is warm and dry and pale HEENT - normocephalic, atraumatic, moist mucous membranes. Neck - full ROM, no LAD, no JVD Pulmonary - B/L equal breath sounds, no crackles , no wheezing, no stridor. cardiovascular - regular S1,S2 heard. systolic murmurs heard at the RUSB. peripheral pulses normal radial 2+, pedal 2+. capillary refill normal <2 secs. GI - soft, nontender abdomen. no hepatospleenomegaly. bowel sounds normoactive Neurological - Patient is A/O X 1 . Bilateral upper extremity strength 3/5, bilateral lower extremity strength 3/5, no facial droop, normal speech, no tremor, no sensory deficiets. laboratory and microbiology Laboratory Tests 11/21/24 05:40 Test 11/21/24 05:40 Range/Units Serum Glucose 86 74-106 mg/dL Problem List/Assessment/Plan Problem List/Assessment/Plan Acute infectious gastroenteritis ? Acute gastritis - CT abdomen pelvis without contrast shows no acute abdominal or pelvic finding - IV fluids - IV metronidazole - Protonix 40 mg IV - Florastor Acute severe anemia ?Hemolytic History of chronic microcytic anemia Hyperbilirubinemia , indirect ?hemolytic anemia - retic count elevated - stool occult blood negative - iron studies elevated iron, low TIBC, elevated paracentesis saturation, elevated ferritin - 1 unit of PRBC transfused - H&H dropping - PBF pending - MRCP shows No biliary ductal dilatation. No filling defect or stricture identified in the common bile duct History of dementia Glaucoma - on latanoprost DVT prophylaxis: Currently held because of low hemoglobin Goals of care discussed with the patient's daughter Amita for over 23 minutes. Full code Plan discussed with Dr. Camara Plan discussed with: Daughter My Orders My Orders Orders - BETH FERNANDEZ RESIDENT Procedure Category Date Status Time Mrcp Mri MRI 11/21/24 Resulted 12:34 Dietary Evaluation Review Comments: 1. Encourage PO feeding + Nurtition supplement, Ensure Enlive BID 2. Monitor PO itnake to meet 75% of her needs Expected Outcomes/Goals: gradual wt gain CC Plasma Assessment Blood Product Administration S: 1430 Date of Service: November 21, 2024 Billing Provider: TRAIVS CAMARA MD Common Visit Codes: [id number] INP/OBS CARE(HIGH) BETH FERNANDEZ RESIDENT November 21, 2024 21:41 TRAVIS CAMARA MD November 21, 2024 22:06
[2024-11-22] VITALS (8 sets, daily range): BP systolic 97–123; BP diastolic 45–64; PULSE 75–88; RESP 18–20; TEMP 96.3–98.6; O2SAT 91–97
[2024-11-22 07:12] LABS: Alanine Aminotransferase 40 U/L (7-40); Albumin 3.6 g/dL (3.2-4.8); Alkaline Phosphatase 74 U/L (46-116); Anion Gap 10 (5-15); BUN/Creatinine Ratio 20.5 (10.0-20.0); Bilirubin, Total 1.2 mg/dL (0.2-1.0); Blood Urea Nitrogen 9 mg/dL (9-23); Carbon Dioxide 22 mmol/L (20-31); Glucose 96 mg/dL (74-106); Potassium 3.5 mmol/L (3.5-5.1); Sodium 142 mmol/L (136-145)
[2024-11-22 07:20] LABS: Aspartate Aminotransferase 50 U/L (13-40); Calcium 8.2 mg/dL (8.7-10.4); Chloride 110 mmol/L (98-107)
[2024-11-22 07:21] LABS: Total Protein 5.4 g/dL (5.7-8.2)
[2024-11-22 07:38] LABS: Eosinophils # (auto) 0.1 10 ^3/uL (0-0.8); Hemoglobin 7.9 g/dL (12.2-16.2); Lymphocytes # (auto) 1.1 10 ^3/uL (0.4-5.4); Monocytes # (auto) 0.4 10 ^3/uL (0-1.3); Nucleated Red Blood Cells % 0.3 %
[2024-11-22 07:41] LABS: Basophils # (auto) 0 10 ^3/uL (0-0.2); Basophils % (auto) 1.3 % (0.0-2.0); Eosinophils % (auto) 4.4 % (0.0-7.0); Hematocrit 23.6 % (36.0-46.0); Mean Corpuscular Hemoglobin 34.9 pg (28.0-32.0); Mean Corpuscular Hgb Conc. 33.4 g/dL (32.0-36.0); Mean Corpuscular Volume 104.6 fL (80.0-100.0); Monocytes % (auto) 12.5 % (0.0-12.0); Neutrophils # (auto) 1.6 10 ^3/uL (1.6-8.6); Neutrophils % (auto) 47.8 % (37.0-80.0); Platelet Count (auto) 296 10^3/uL (140-450); Red Blood Cells 2.26 10^6/uL (4.0-5.20); White Blood Cell 3.3 10^3/uL (4.4-10.8)
[2024-11-22 08:15] LABS: Red Cell Distribution Width 28.6 % (11.8-14.3)
[2024-11-22 13:27] LABS: INR 1.22 (0.9-1.15); Partial Thromboplastin Time 31.5 SEC (24.5-34.5); Prothrombin Time 12.7 sec (9.3-11.8)
[2024-11-22] MEDS: MEGESTROL ACET 400MG/10ML ORAL SUSP PO ONE (14:29)
--- NOTE | 2024-11-22 17:12 | DVHPNRES ---
Progress Note Date Seen: November 22, 2024 Resident Creating Document: BETH FERNANDEZ RESIDENT Medical Necessity Reason Pt with a Central, PICC or Fol: No Subjective Review of Systems Seen and examined at the bedside Hemoglobin stable Patient reported that she ate better today as compared to yesterday No other acute complaints Objective vital signs Vital Sign Date Time Temp Pulse Resp B/P (MAP) Pulse Ox O2 Delivery O2 Flow Rate FiO2 11/22/24 16:52 98.2 82 18 97/46 (63) 92 98.2 11/22/24 08:00 Room Air* 0 21 Total Intake and Output 11/21/24 11/21/24 11/22/24 15:00 23:00 07:00 Intake Total 700 ml 100 ml Balance 700 ml 100 ml medications Current Medications Medications Dose Ordered Sig/Eugene Route Start Time Stop Time Status Last Admin Dose Admin Metronidazole 100 ml @ 100 mls/hr Q8HR IV 11/19/24 14:00 11/22/24 14:30 100 MLS/HR Saccharomyces Boulardii 250 mg DAILY PO 11/19/24 10:00 11/22/24 10:36 250 MG Pantoprazole Sodium 40 mg DAILY IV 11/20/24 10:00 11/22/24 10:37 40 MG Latanoprost 1 drop HS EACHEYE 11/19/24 22:00 11/21/24 21:32 1 DROP Megestrol Acetate 400 mg DAILY PO 11/23/24 10:00 Examination Constitutional: Patient is very hard of hearing and could barely answer the questions Gen - no conjunctival pallor, no icterus, no cyanosis, no clubbing, no LAD, no edema . Skin - Patients skin is warm and dry and pale HEENT - normocephalic, atraumatic, moist mucous membranes. Neck - full ROM, no LAD, no JVD Pulmonary - B/L equal breath sounds, no crackles , no wheezing, no stridor. cardiovascular - regular S1,S2 heard. systolic murmurs heard at the RUSB. peripheral pulses normal radial 2+, pedal 2+. capillary refill normal <2 secs. GI - soft, nontender abdomen. no hepatospleenomegaly. bowel sounds normoactive Neurological - Patient is A/O X 2 . Bilateral upper extremity strength 3/5, bilateral lower extremity strength 3/5, no facial droop, normal speech, no tremor, no sensory deficiets. laboratory and microbiology Laboratory Tests 11/22/24 06:30 Test 11/22/24 06:30 Range/Units Serum Glucose 96 74-106 mg/dL Microbiology Date/Time Source Procedure Growth Status 11/21/24 15:30 Stool Stool Culture - Preliminary Resulted 11/21/24 15:30 Stool Shiga Toxin I & II - Final Resulted Problem List/Assessment/Plan Problem List/Assessment/Plan Acute infectious gastroenteritis ? Acute gastritis - CT abdomen pelvis without contrast shows no acute abdominal or pelvic finding - IV fluids - IV metronidazole - Protonix 40 mg IV - Florastor Acute severe anemia ?Hemolytic History of chronic microcytic anemia Hyperbilirubinemia , indirect ?hemolytic anemia Coagulopathy - retic count elevated - stool occult blood negative - iron studies elevated iron, low TIBC, elevated paracentesis saturation, elevated ferritin - 1 unit of PRBC transfused - H&H stable - PBF pending - MRCP shows No biliary ductal dilatation. No filling defect or stricture identified in the common bile duct - elevated PT and INR History of dementia Glaucoma - on latanoprost DVT prophylaxis: Currently held because of low hemoglobin Goals of care discussed with the patient's daughter Amita for over 11 minutes. Full code Time spent: 25 minutes Plan discussed with Dr. Camara Plan discussed with: Patient, Daughter, Other (RN allan) My Orders My Orders Orders - BETH FERNANDEZ RESIDENT Procedure Category Date Status Time Megestrol Oral PHA 11/23/24 In Process Suspension (Megace 10:00 Dietary Evaluation Review Comments: 1. Encourage PO feeding + Nurtition supplement, Ensure Enlive BID 2. Monitor PO itnake to meet 75% of her needs Expected Outcomes/Goals: gradual wt gain CC Plasma Assessment Blood Product Administration S: 1430 Date of Service: November 22, 2024 Billing Provider: TRAVIS CAMARA MD Common Visit Codes: [id number] INP/OBS CARE(HIGH) BETH FERNANDEZ RESIDENT November 22, 2024 17:12 TRAVIS CAMARA MD November 22, 2024 22:53
[2024-11-23] VITALS (8 sets, daily range): BP systolic 97–117; BP diastolic 45–65; PULSE 73–88; RESP 17–18; TEMP 98–98.6; O2SAT 94–98
[2024-11-23 07:31] LABS: Basophils # (auto) 0 10 ^3/uL (0-0.2); Basophils % (auto) 1.2 % (0.0-2.0); Eosinophils # (auto) 0.1 10 ^3/uL (0-0.8); Eosinophils % (auto) 1.8 % (0.0-7.0); Hematocrit 23.8 % (36.0-46.0); Hemoglobin 7.9 g/dL (12.2-16.2); Lymphocytes # (auto) 1.4 10 ^3/uL (0.4-5.4); Lymphocytes % (auto) 37.4 % (10.0-50.0); Mean Corpuscular Hemoglobin 34.5 pg (28.0-32.0); Mean Corpuscular Hgb Conc. 33.1 g/dL (32.0-36.0); Mean Corpuscular Volume 104.4 fL (80.0-100.0); Monocytes # (auto) 0.4 10 ^3/uL (0-1.3); Monocytes % (auto) 10.7 % (0.0-12.0); Neutrophils # (auto) 1.8 10 ^3/uL (1.6-8.6); Neutrophils % (auto) 48.9 % (37.0-80.0); Nucleated Red Blood Cells % 0.1 %; Platelet Count (auto) 298 10^3/uL (140-450); Red Blood Cells 2.28 10^6/uL (4.0-5.20); Red Cell Distribution Width 28.5 % (11.8-14.3); White Blood Cell 3.7 10^3/uL (4.4-10.8)
[2024-11-23 07:40] LABS: Alanine Aminotransferase 33 U/L (7-40); Albumin 3.5 g/dL (3.2-4.8); Alkaline Phosphatase 74 U/L (46-116); Anion Gap 9 (5-15); Aspartate Aminotransferase 39 U/L (13-40); BUN/Creatinine Ratio 21.3 (10.0-20.0); Bilirubin, Total 0.9 mg/dL (0.2-1.0); Blood Urea Nitrogen 10 mg/dL (9-23); Carbon Dioxide 22 mmol/L (20-31); Potassium 3.6 mmol/L (3.5-5.1); Sodium 141 mmol/L (136-145)
[2024-11-23 07:44] LABS: Calcium 8.7 mg/dL (8.7-10.4); Chloride 110 mmol/L (98-107); Glucose 113 mg/dL (74-106); Total Protein 5.3 g/dL (5.7-8.2)
[2024-11-23] MEDS: D5W 5% 1,000 ML IV SCH (10:01)
[2024-11-23] MEDS: MEGESTROL ACET 400MG/10ML ORAL SUSP PO SCH (10:20)
--- NOTE | 2024-11-23 11:52 | DVHPNRES ---
Progress Note Date Seen: November 23, 2024 Resident Creating Document: KANNAN ARREDONDO RESIDENT Medical Necessity Reason Pt with a Central, PICC or Fol: No Subjective Review of Systems Patient seen and examined at bedside Per PT evaluation, patient able to ambulate at least 60 ft with ophthalmic medical assistant Patient appetite improved compared to yesterday No any other new complaint. Patient is alert, not oriented to place. Likely underlying dementia Hemoglobin is stable No any other acute night events. Objective vital signs Vital Sign Date Time Temp Pulse Resp B/P (MAP) Pulse Ox O2 Delivery O2 Flow Rate FiO2 11/23/24 09:00 98.5 73 17 98/50 (66) 94 98.5 11/23/24 08:00 Room Air* 0 21 Total Intake and Output 11/22/24 11/22/24 11/23/24 15:00 23:00 07:00 Intake Total 300 ml 880 ml 580 ml Output Total 525 ml Balance 300 ml 355 ml 580 ml medications Current Medications Medications Dose Ordered Sig/Eugene Route Start Time Stop Time Status Last Admin Dose Admin Metronidazole 100 ml @ 100 mls/hr Q8HR IV 11/19/24 14:00 11/23/24 05:01 100 MLS/HR Saccharomyces Boulardii 250 mg DAILY PO 11/19/24 10:00 11/23/24 10:03 250 MG Pantoprazole Sodium 40 mg DAILY IV 11/20/24 10:00 11/23/24 10:03 40 MG Latanoprost 1 drop HS EACHEYE 11/19/24 22:00 11/22/24 21:34 1 DROP Megestrol Acetate 400 mg DAILY PO 11/23/24 10:00 11/23/24 10:20 400 MG Dextrose 1,000 ml @ 50 mls/hr Q20H IV 11/23/24 08:45 11/23/24 10:01 50 MLS/HR Examination Constitutional: Patient is very hard of hearing and could barely answer the questions Gen - no conjunctival pallor, no icterus, no cyanosis, no clubbing, no LAD, no edema . Skin - Patients skin is warm and dry and pale HEENT - normocephalic, atraumatic, moist mucous membranes. Neck - full ROM, no LAD, no JVD Pulmonary - B/L equal breath sounds, no crackles , no wheezing, no stridor. cardiovascular - regular S1,S2 heard. systolic murmurs heard at the RUSB. peripheral pulses normal radial 2+, pedal 2+. capillary refill normal <2 secs. GI - soft, nontender abdomen. no hepatospleenomegaly. bowel sounds normoactive Neurological - Patient is A/O X 2 . Bilateral upper extremity strength 3/5, bilateral lower extremity strength 3/5, no facial droop, normal speech, no tremor, no sensory deficiets. laboratory and microbiology Laboratory Tests 11/23/24 06:25 Test 11/23/24 06:25 Range/Units Serum Glucose 113 H 74-106 mg/dL Microbiology Date/Time Source Procedure Growth Status 11/21/24 15:30 Stool Stool Culture - Preliminary Resulted 11/21/24 15:30 Stool Shiga Toxin I & II - Final Resulted Problem List/Assessment/Plan Problem List/Assessment/Plan Acute infectious gastroenteritis ? Acute gastritis - CT abdomen pelvis without contrast shows no acute abdominal or pelvic finding - IV fluids - IV metronidazole - Protonix 40 mg IV - Florastor Acute severe anemia ?Hemolytic History of chronic microcytic anemia Hyperbilirubinemia , indirect ?hemolytic anemia Coagulopathy - retic count elevated - stool occult blood negative - iron studies elevated iron, low TIBC, elevated paracentesis saturation, elevated ferritin - 1 unit of PRBC transfused - H&H stable - PBF pending - MRCP shows No biliary ductal dilatation. No filling defect or stricture identified in the common bile duct - elevated PT and INR History of dementia Glaucoma - on latanoprost Loss of appetite with severe protein malnutrition -continue megestrol 400 mg p.o. daily -dietary consultation DVT prophylaxis: Currently held because of low hemoglobin Goals of care discussed with the patient's daughter Amita for over 11 minutes. Full code Time spent: 25 minutes Plan discussed with Dr. Camara Plan discussed with: Patient, Other (RN) My Orders My Orders Orders - KANNAN ARREDONDO RESIDENT Procedure Category Date Status Time D5w 5% (Dextrose 5%) PHA 11/23/24 In Process 08:45 Dietary Evaluation Review Comments: 1. Encourage PO feeding + Nurtition supplement, Ensure Enlive BID 2. Monitor PO itnake to meet 75% of her needs Expected Outcomes/Goals: gradual wt gain CC Plasma Assessment Blood Product Administration S: 1430 Date of Service: November 23, 2024 Billing Provider: TRAVIS CAMARA MD Common Visit Codes: [id number] INP/OBS CARE(HIGH) KANNAN ARREDONDO RESIDENT November 23, 2024 11:52 TRAVIS CAMARA MD November 24, 2024 07:29
[2024-11-24] VITALS (8 sets, daily range): BP systolic 96–120; BP diastolic 41–70; PULSE 66–111; RESP 14–19; TEMP 97.8–98.4; O2SAT 91–97
[2024-11-24 07:50] LABS: Basophils # (auto) 0 10 ^3/uL (0-0.2); Basophils % (auto) 0.9 % (0.0-2.0); Eosinophils # (auto) 0.1 10 ^3/uL (0-0.8); Eosinophils % (auto) 1.6 % (0.0-7.0); Hematocrit 22.2 % (36.0-46.0); Hemoglobin 7.6 g/dL (12.2-16.2); Lymphocytes # (auto) 1.4 10 ^3/uL (0.4-5.4); Lymphocytes % (auto) 44.2 % (10.0-50.0); Mean Corpuscular Hemoglobin 34.6 pg (28.0-32.0); Monocytes # (auto) 0.4 10 ^3/uL (0-1.3); Monocytes % (auto) 11.3 % (0.0-12.0); Neutrophils # (auto) 1.3 10 ^3/uL (1.6-8.6); Nucleated Red Blood Cells % 0.2 %; Platelet Count (auto) 293 10^3/uL (140-450); Red Blood Cells 2.18 10^6/uL (4.0-5.20); Red Cell Distribution Width 27.2 % (11.8-14.3); White Blood Cell 3.2 10^3/uL (4.4-10.8)
--- NOTE | 2024-11-24 13:16 | DVHPN2 ---
Subjective The patient is seen and examined at bedside. The patient said she had her appetite back and started feeling hungry now. Reviewed: Care Plan, H&P, Labs, Medications, Previous Orders, Radiology Changes from previous H/P or p: No Changes Eyes: No Pain, No Vision change, No Conjunctivae inflammation, No Eyelid inflammation, No Other, No Redness ENT: No Ear pain, No Ear discharge, No Nose pain, No Nose discharge, No Nose congestion, No Mouth pain, No Mouth swelling, No Throat pain, No Throat swelling, No Other Cardiovascular: No Chest Pain, No Palpitations, No Orthopnea, No Paroxysmal Noc. Dyspnea, No Edema, No Lt Headedness, No Other Respiratory: No Cough, No Dry, No Shortness of breath, No SOB with excertion, No Wheezing, No Hemoptysis, No Pleuritic Pain, No Sputum, No Other Gastrointestinal: No Nausea, No Vomiting, No Abdominal Pain; Diarrhea; No Constipation, No Melena, No Hematochezia, No Other Genitourinary: No Dysuria, No Frequency, No Incontinence, No Hematuria, No Retention, No Other Musculoskeletal: No other, No neck pain, No shoulder pain, No arm pain, No back pain, No hand pain, No leg pain, No foot pain Skin: No Rash, No Lesions, No Jaundice, No Bruising, No Other Objective Vitals Vital Signs Date Time Temp Pulse Resp B/P (MAP) Pulse Ox O2 Delivery O2 Flow Rate FiO2 11/24/24 12:45 98.4 73 19 96/46 (63) 91 98.4 11/24/24 08:00 Room Air* 0 21 Intake/Output Intake and Output 11/24/24 07:00 Intake Total 2090 ml Balance 2090 ml Intake Oral 1240 ml IV Total 850 ml # Voids 7 # Bowel Movements 3 General Appearance: Alert, Oriented X3, Cooperative, No acute distress HEENT: Atraumatic, PERRLA, EOMI, Mucous membr. moist/pink Neck: Supple Lungs: Clear to auscultation, Normal air movement Cardiovascular: Regular rate, Normal S1, Normal S2, No murmurs, Gallops, Rubs Abdomen: Normal bowel sounds, Soft, No tenderness Neuro: Cranial nerves 3-12 NL Psych/Mental Status: Mental status NL Medications Current Medications Medications Dose Ordered Sig/Eugene Route Start Time Stop Time Status Last Admin Dose Admin Metronidazole 100 ml @ 100 mls/hr Q8HR IV 11/19/24 14:00 11/24/24 05:20 100 MLS/HR Saccharomyces Boulardii 250 mg DAILY PO 11/19/24 10:00 11/24/24 10:02 250 MG Pantoprazole Sodium 40 mg DAILY IV 11/20/24 10:00 11/24/24 10:02 40 MG Latanoprost 1 drop HS EACHEYE 11/19/24 22:00 11/23/24 21:10 1 DROP Megestrol Acetate 400 mg DAILY PO 11/23/24 10:00 11/24/24 10:02 400 MG Dextrose 1,000 ml @ 50 mls/hr Q20H IV 11/23/24 08:45 11/24/24 05:19 50 MLS/HR Laboratory Results Laboratory Tests 11/23/24 06:25 11/24/24 06:28 Urinalysis Test 11/19/24 09:56 Urine Color Light-yellow (Yellow) Urine Clarity Clear (Clear) Urine pH 6.0 (5.0-9.0) Urine Specific [place] 1.009 (1.001-1.035) Urine Protein Negative (Negative) Urine Ketones Negative (Negative) Urine Blood Negative /uL (Negative) Urine Nitrite Negative (Negative) Urine Bilirubin Negative (Negative) Urine Urobilinogen Normal mg/dL (Negative) Urine Leukocyte Esterase Trace /uL (Negative) Urine RBC <1 /hpf (0 - 4) Urine Microscopic WBC 11 /HPF (0-5) H Urine Squamous Epithelial Cells Few /hpf (<5) Urine Bacteria None seen /hpf (None Seen) Urine Hyaline Casts Few /lpf (0 - 2) Urine Glucose Normal mg/dL (Normal) Microbiology Microbiology Date/Time Source Procedure Growth Status 11/21/24 15:30 Stool Stool Culture - Final Complete 11/21/24 15:30 Stool Shiga Toxin I & II - Final Complete Labs and/or images reviewed: Labs reviewed by me Assessment/Plan Assessment/Plan Acute infectious gastroenteritis ? Acute gastritis - CT abdomen pelvis without contrast shows no acute abdominal or pelvic finding - IV fluids - IV metronidazole - Protonix 40 mg IV - Florastor Acute severe anemia ?Hemolytic History of chronic microcytic anemia Hyperbilirubinemia , indirect ?hemolytic anemia Coagulopathy - retic count elevated - stool occult blood negative - iron studies elevated iron, low TIBC, elevated paracentesis saturation, elevated ferritin - 1 unit of PRBC transfused - H&H stable - PBF pending - MRCP shows No biliary ductal dilatation. No filling defect or stricture identified in the common bile duct - elevated PT and INR History of dementia Glaucoma - on latanoprost Loss of appetite with severe protein malnutrition -continue megestrol 400 mg p.o. daily -dietary consultation -continuing with boost Discharge planning DVT prophylaxis: Currently held because of low hemoglobin This medical document was created using an electronic medical record system with [employer] dictation system. Although this document has been carefully reviewed, there may still be some phonetic and typographical errors. These areas are purely typographical due to imperfections of the software programs, and do not reflect any compromise in the patient's medical care. Plan discussed with: Patient Date of Service: November 24, 2024 Billing Provider: TRAVIS RESTREPO MD Common Visit Codes: [id number] INP/OBS CARE(HIGH) TRAVIS RESTREPO MD November 24, 2024 13:16
[2024-11-25] VITALS (7 sets, daily range): BP systolic 101–110; BP diastolic 34–67; PULSE 72–91; RESP 17–18; TEMP 36.9; O2SAT 94–97
[2024-11-25 06:32] LABS: Basophils # (auto) 0 10 ^3/uL (0-0.2); Eosinophils # (auto) 0.1 10 ^3/uL (0-0.8); Hemoglobin 7.5 g/dL (12.2-16.2); Monocytes # (auto) 0.5 10 ^3/uL (0-1.3); Neutrophils # (auto) 2.2 10 ^3/uL (1.6-8.6); White Blood Cell 4.3 10^3/uL (4.4-10.8)
[2024-11-25 06:33] LABS: Sodium 141 mmol/L (136-145)
[2024-11-25 06:34] LABS: Anion Gap 8 (5-15); Basophils % (auto) 0.9 % (0.0-2.0); Carbon Dioxide 24 mmol/L (20-31); Eosinophils % (auto) 1.7 % (0.0-7.0); Hematocrit 22.1 % (36.0-46.0); Lymphocytes # (auto) 1.5 10 ^3/uL (0.4-5.4); Lymphocytes % (auto) 35.4 % (10.0-50.0); Mean Corpuscular Hemoglobin 35.1 pg (28.0-32.0); Mean Corpuscular Hgb Conc. 34.2 g/dL (32.0-36.0); Mean Corpuscular Volume 102.5 fL (80.0-100.0); Monocytes % (auto) 11.4 % (0.0-12.0); Neutrophils % (auto) 50.6 % (37.0-80.0); Nucleated Red Blood Cells % 0.2 %; Platelet Count (auto) 295 10^3/uL (140-450); Red Blood Cells 2.15 10^6/uL (4.0-5.20); Red Cell Distribution Width 26.9 % (11.8-14.3)
[2024-11-25 06:39] LABS: BUN/Creatinine Ratio 17.9 (10.0-20.0); Glucose 102 mg/dL (74-106)
[2024-11-25 06:59] LABS: Blood Urea Nitrogen 7 mg/dL (9-23); Calcium 8.2 mg/dL (8.7-10.4); Chloride 109 mmol/L (98-107); Potassium 3.4 mmol/L (3.5-5.1)
[2024-11-25 08:46] LABS: Anisocytosis Moderate; Macrocytosis Slight; Platelet Estimate Adequate
[2024-11-25 08:47] LABS: Large Platelets FEW; Target Cell FEW; Tear Drop Cells FEW
[2024-11-25] MEDS: POTASSIUM EFFERVESENT TAB 25 MEQ PO ONE (09:22)
[2024-11-25] MEDS ORDERED: MEGE1SUS5 PO (15:26)
[2024-11-25] MEDS ORDERED: LATA0.008 EACHEYE (15:26)
--- NOTE | 2024-11-25 16:38 | DVHDSRES ---
Discharge Summary Date of Admission Resident Creating Document: BETH FERNANDEZ RESIDENT November 18, 2024 at 20:50 Date of Discharge: November 25, 2024 Admitting Diagnosis #Acute gastroenteritis #Hypotension resolved #Dehydration resolved #Acute on Chronic macrocytic anemia #Hyperbilirubinemia #Dementia Wounds: none Labs/Diagnostic Data: Laboratory Results Test 11/25/24 05:36 11/23/24 06:25 11/22/24 12:48 11/20/24 05:58 White Blood Count 4.3 10^3/uL (4.4-10.8) Red Blood Count 2.15 10^6/uL (4.0-5.20) Hemoglobin 7.5 g/dL (12.2-16.2) Hematocrit 22.1 % (36.0-46.0) Mean Corpuscular Volume 102.5 fL (80.0-100.0) Mean Corpuscular Hemoglobin 35.1 pg (28.0-32.0) Mean Corpuscular Hemoglobin Concent 34.2 g/dL (32.0-36.0) Red Cell Distribution Width 26.9 % (11.8-14.3) Platelet Count 295 10^3/uL (140-450) Mean Platelet Volume 8.5 fL (6.9-10.8) Neutrophils (%) (Auto) 50.6 % (37.0-80.0) Lymphocytes (%) (Auto) 35.4 % (10.0-50.0) Monocytes (%) (Auto) 11.4 % (0.0-12.0) Eosinophils (%) (Auto) 1.7 % (0.0-7.0) Basophils (%) (Auto) 0.9 % (0.0-2.0) Neutrophils # (Auto) 2.2 10 ^3/uL (1.6-8.6) Lymphocytes # (Auto) 1.5 10 ^3/uL (0.4-5.4) Monocytes # (Auto) 0.5 10 ^3/uL (0-1.3) Eosinophils # (Auto) 0.1 10 ^3/uL (0-0.8) Basophils # (Auto) 0 10 ^3/uL (0-0.2) Nucleated Red Blood Cells 0.2 % Platelet Estimate Adequate Large Platelets Few Poikilocytosis (manual) Moderate Anisocytosis (manual) Moderate Macrocytosis Slight Target Cells Few Tear Drop Cells Few Schistocytes Few Sodium Level 141 mmol/L (136-145) Potassium Level 3.4 mmol/L (3.5-5.1) Chloride Level 109 mmol/L (98-107) Carbon Dioxide Level 24 mmol/L (20-31) Anion Gap 8 (5-15) Blood Urea Nitrogen 7 mg/dL (9-23) Creatinine 0.39 mg/dL (0.550-1.02) Glomerular Filtration Rate Calc 97 mL/min (>90) BUN/Creatinine Ratio 17.9 (10.0-20.0) Serum Glucose 102 mg/dL (74-106) Calcium Level 8.2 mg/dL (8.7-10.4) Total Bilirubin 0.9 mg/dL (0.2-1.0) Aspartate Amino Transferase (AST) 39 U/L (13-40) Alanine Aminotransferase (ALT) 33 U/L (7-40) Alkaline Phosphatase 74 U/L (46-116) Total Protein 5.3 g/dL (5.7-8.2) Albumin 3.5 g/dL (3.2-4.8) Prothrombin Time 12.7 sec (9.3-11.8) Prothrombin Time INR 1.22 (0.9-1.15) Activated Partial Thromboplast Time 31.5 SEC (24.5-34.5) Giant Platelets Few Test 11/19/24 12:49 11/19/24 09:56 11/19/24 08:37 11/19/24 05:22 Lactic Acid Level 1.0 mmol/L (0.4-2.0) Urine Color Light-yellow (Yellow) Urine Clarity Clear (Clear) Urine pH 6.0 (5.0-9.0) Urine Specific [place] 1.009 (1.001-1.035) Urine Protein Negative (Negative) Urine Ketones Negative (Negative) Urine Blood Negative /uL (Negative) Urine Nitrite Negative (Negative) Urine Bilirubin Negative (Negative) Urine Urobilinogen Normal mg/dL (Negative) Urine Leukocyte Esterase Trace /uL (Negative) Urine RBC <1 /hpf (0 - 4) Urine Microscopic WBC 11 /HPF (0-5) Urine Squamous Epithelial Cells Few /hpf (<5) Urine Bacteria None seen /hpf (None Seen) Urine Hyaline Casts Few /lpf (0 - 2) Urine Glucose Normal mg/dL (Normal) Urine Opiates Screen Neg (NEGATIVE) Urine Fentanyl Screen Neg (NEGATIVE) Urine Barbiturates Screen Neg (NEGATIVE) Urine Phencyclidine Screen Neg (NEGATIVE) Urine Amphetamines Screen Neg (NEGATIVE) Urine Benzodiazepines Screen Neg (NEGATIVE) Urine Cocaine Screen Neg (NEGATIVE) Urine Cannabinoids Screen Neg (NEGATIVE) Stool Occult Blood Negative (Negative) Stool Occult Blood Sample #3 (Negative) Reticulocyte Count (auto) 2.19 % (0.5-1.5) Haptoglobin 57 mg/dL (41-333) Direct Bilirubin 0.8 mg/dL (<0.3) Lactate Dehydrogenase 167 U/L (120-246) Test 11/19/24 05:21 11/18/24 23:07 11/18/24 19:15 Ovalocytes Few [place] Cells Few Ammonia 42 umol/L (11-32) SARS-CoV-2 Antigen (Rapid) Negative (NEGATIVE) Hemoglobin A1c 4.4 % A1C (<5.7) Iron Level 191 ug/dL (50-170) Total Iron Binding Capacity 217 ug/dL (250-425) Percent Iron Saturation 88.0 % (15-50) Ferritin > 1650.0 ng/mL (10-291) C-Reactive Protein High Sensitivity 0.20 mg/dL (<1.0) Vitamin B12 Level 592 pg/mL (211-911) Folic Acid 5.10 ng/mL (>5.38) Thyroid Stimulating Hormone (TSH) 2.38 uIU/mL (0.55-4.78) Other Laboratory Tests 11/25/24 05:36 Brief Hx & Hospital Course: HPI 84-year-old female with PMHx of dementia and chronic macrocytic anemia presented to the ED with acute onset diarrhea that began earlier today. Daughter and RN reports two episodes: one at home and one after arrival at the ED. Family notes that multiple household members are experiencing similar symptoms. The daughter describes the diarrhea as brown, non-bloody, and watery. She denies fever, chills, nausea, vomiting, or abdominal pain. She reports that during similar episodes in the past, she becomes notably weak and frail, which prompted todays ED visit. Past medical history: Chronic microcytic anemia, dementia, bilateral hearing loss, glaucoma Past surgical history: Hysterectomy Social history: Patient does not smoke, no alcohol or drug use Home medications: Latanoprost, dorzolamide-timolol Brief hospital course and discharge plan The patient in the hospital 1 day after the admission heard low hemoglobin following which had to be transferred 1 unit of PRBC. Stool occult blood was negative and the patient was started on IV metronidazole for acute gastroenteritis and was given Florastor. CT abdominal pelvis without contrast showed no acute abdominal or pelvic finding. The patient had elevated reticulocyte count, her yesterday showed elevated iron, % saturation , ferritin and low TIBC. Vitamin B12 and folic acid level were within normal limits. Patient's bilirubin was increased with the increase in the direct bilirubin filled mild elevation of the transaminases holding was MRCP was done which showed no biliary ductal dilation, no filling defect or stricture identified in the common bile duct. Peripheral blood smear was done. The patient reported that she had a decreased appetite following which she was loaded on megesterol which improved her appetite the patient was discharged home with 10 days of it. Physical therapy evaluated the patient who recommended home health services for physical therapy, which were arranged. Patient discharged in stable condition to home and advised the daughter to make her follow up with the PCP in 1 week. Consults/Reason for consult none Operations or Procedures none Condition at Discharge: Good Final Diagnosis/Problems List Acute infectious gastroenteritis ? Acute gastritis Acute severe anemia ?Hemolytic History of chronic macrocytic anemia Hyperbilirubinemia , indirect ?hemolytic anemia Coagulopathy History of dementia h/o Glaucoma Discharge Disposition: Home with Health Services Discharge Instruct/Medications Diet: See Comment Diet comment: mechanical soft diet Activity: No Restrictions, As Tolerated Follow Up/Referral: Follow up in the discharge clinic in one week Medications: as per EMR Discharge Statement: "Patient was advised to return to the ER or call 911 if any headaches, dizziness, shortness of breath, chest pain, abdominal pain, bleeding, fevers, or worsening of medical condition. Patient was counseled about treatment plan, medications, possible side effects, patientverbalized understanding. All questions were answered to the best of my ability. This discharge took greater then 30 minutes in planning, reviewing documentation, counseling the patient, and discussing with other team members." ASSESSMENT ASSESSMENT Assessment Acute infectious gastroenteritis ? Acute gastritis Acute severe anemia ?Hemolytic History of chronic macrocytic anemia Hyperbilirubinemia , indirect ?hemolytic anemia Coagulopathy History of dementia h/o Glaucoma Date of Service: November 25, 2024 Billing Provider: TRAVIS RESTREPO MD Common Visit Codes: [id number] DISCH DAY >30min BETH FERNANDEZ RESIDENT November 25, 2024 16:38 TRAVIS RESTREPO MD November 26, 2024 07:33
== END 2024-11-25 18:30 | disposition home health service (06) | DRG 391 ==
LOC: EDBD 17:14 → ER 17:14 → OVERFLOW 20:50 → CENTRAL 11-19 23:41 → TELE-CENTR 11-19 23:59
PROVIDERS: ADMIT Internal Medicine; ATTEND Internal Medicine
PROC: 30233N0 Transfusion of Autologous Red Blood Cells into Peripheral Vein, Percutaneous Approach (ICD-10-PCS; principal; 2024-11-19)
DX: A09 Infectious gastroenteritis and colitis, unspecified (principal); E43 Unspecified severe protein-calorie malnutrition; D68.9 Coagulation defect, unspecified; D58.9 Hereditary hemolytic anemia, unspecified; K29.00 Acute gastritis without bleeding; E86.0 Dehydration; D53.9 Nutritional anemia, unspecified; H40.9 Unspecified glaucoma; E80.6 Other disorders of bilirubin metabolism; Z20.822 Contact with and (suspected) exposure to COVID-19; I95.9 Hypotension, unspecified; F03.90 Unspecified dementia, unspecified severity, without behavioral disturbance, psychotic disturbance, mood disturbance, and anxiety; D50.9 Iron deficiency anemia, unspecified; Z79.2 Long term (current) use of antibiotics; Z79.899 Other long term (current) drug therapy; Z90.710 Acquired absence of both cervix and uterus; Z68.20 Body mass index [BMI] 20.0-20.9, adult
CPT/HCPCS: 36415; 36430; 71045; 74176; 74181; 80048; 80053; 80307; 81001; 82140; 82248; 82270; 82607; 82728; 82746; 83010; 83036; 83540; 83550; 83605; 83615; 84443; 85014; 85018; 85025; 85045; 85610; 85730; 86141; 86850; 86900; 86901; 86920; 87045; 87426; 87427; 92610; 93005; 96374; 97110; 97116; 97163; 97530; 99291; G0378; J2470; J3490

== ENCOUNTER 2024-11-27 09:45 | Inpatient (IN) | payer MEDICARE, MEDICAID ==
[~2024-11-27] VITALS: Ht 149.9 cm; Wt 45.6 kg
[~2024-11-27 09:45] MED LIST changes: -CEPH-37 PO; +DORZ2SOL EACHEYE; -DORZ2SOL9 OP; -LATA0.0020 EACHEYE; +LATA0.008 EACHEYE; +MEGE1SUS5 PO; -MULTTAB99 PO
[2024-11-27] MEDS: SODIUM CHLORIDE 0.9% 1,000 ML IV ONE (10:15)
--- NOTE | 2024-11-27 10:16 | ED.PDOC ---
History of Present Illness HPI Comments 84-year-old female brought by paramedics from home because she was having weakness since yesterday. She was discharged from this hospital two days ago went home the following day started to have weakness almost fell yesterday while walking but caught by family member. Last time she was here she did have blood transfusion. Patient does have dementia. Unable to get any history from the patient. No sign of any injuries on arrival. Vitals signs stable on arrival. Chief Complaint: General Weakness Time Seen by MD: 09:54 Primary Care Provider: UNKNOWN Reviewed Notes: Nurses Notes, Medications, Allergies Allergies: Coded Allergies: NO KNOWN ALLERGIES (Unverified , 04/29/11) Home Meds Active Scripts Megestrol Acetate (Appetite) (Megestrol Acetate) 625 Mg/5 Ml Janette, 625 MG PO DAILY for 10 Days, #50 ML 0 Refills Prov:BETH FERNANDEZ RESIDENT 11/25/24 Latanoprost (LATANOPROST) 0.005 % Roya, 1 DROP EACHEYE HS for 28 Days, #2.5 ML Prov:BETH FERNANDEZ RESIDENT 11/25/24 Reported Medications Dorzolamide Hydrochloride (Dorzolamide HCl) 2 % Roya, 1 % EACHEYE, ML 11/20/24 Information Source: Emergency Med Personnel Mode of Arrival: EMS Severity: Moderate Timing: Days Duration: Since onset Past Medical History PAST MEDICAL HISTORY: Anemia Surgical History: 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 Hx Family History Family History: Reviewed,noncontributory to illness Social History Smoker: Non-Smoker Alcohol: Denies ETOH Use Drugs: Denies Drug Use Lives In: Home Constitutional: reports: weakness; denies: chills, diaphoresis, fatigue, fever, malaise, sweats, others EENTM: denies: blurred vision, double vision, ear bleeding, ear discharge, ear drainage, ear pain, ear ringing, eye pain, eye redness, hearing loss, mouth pain, mouth swelling, nasal discharge, nose bleeding, nose congestion, nose pain, photophobia, tearing, throat pain, throat swelling, voice changes, others Respiratory: denies: cough, hemoptysis, orthopnea, SOB at rest, shortness of breath, SOB with excertion, stridor, wheezing, others Cardiovascular: denies: chest pain, dizzy spells, diaphoresis, Dyspnea on exertion, edema, irregular heart beat, left arm pain, lightheadedness, palpitations, PND, syncope, others Gastrointestinal: denies: abdomen distended, abdominal pain, blood streaked bowels, constipated, diarrhea, dysphagia, difficulty swallowing, hematemesis, melena, nausea, poor appetite, poor fluid intake, rectal bleeding, rectal pain, vomiting, others Genitourinary: denies: abnormal vagina bleeding, burning, dyspareunia, dysuria, flank pain, frequency, hematuria, incontinence, pain, , vagina discharge, urgency, others Neurological: denies: dizziness, fainting, headache, left sided numbness, left sided weakness, numbness, paresthesia, pre-existing deficit, right sided numbness, right sided weakness, seizure, speech problems, tingling, tremors, weakness, others Musculoskeletal: denies: back pain, gout, joint pain, joint swelling, muscle pain, muscle stiffness, neck pain, others Integumetry: denies: bruises, change in color, change in hair/nails, dryness, laceration, lesions, lumps, rash, wounds, others Allergic/Immunocompromised: denies: Difficulty Healing, Frequent Infections, Hives, Itching, others Hematologic/Lymphatic: denies: anemia, blood clots, easy bleeding, easy bruising, swollen glands, others Endocrine: denies: excessive hunger, excessive sweating, excessive thirst, excessive urination, flushing, intolerance to cold, intolerance to heat, unexplained weight gain, unexplained weight loss, others Psychiatric: denies: anxiety, bipolar disorder, depression, hopeless, panic disorder, schizophrenia, sleepless, suicidal, others Physical Exam General Appearance: Moderate Distress, Thin HEENT: Normal ENT Inspection, Pharynx Normal, TMs Normal Neck: Full Range of Motion, Non-Tender, Normal, Normal Inspection Respiratory: Chest Non-Tender, Lungs Clear, No Accessory Muscle Use, No Respiratory Distress, Normal Breath Sounds Cardiovascular: No Edema, No JVD, No Murmur, No Gallop, Normal Peripheral Pulses, Regular Rate/Rhythm Breast Exam: Deferred Gastrointestinal: No Organomegaly, Non Tender, No Pulsatile Mass, Normal Bowel Sounds, Soft Genitalia: Deferred Pelvic: Deferred Rectal: Deferred Extremities: No calf tenderness, No pedal edema Musculoskeletal : Apperance: Normal Neurologic: Disoriented (Dementia) Cerebellar Function: NOT DONE Reflexes: NOT DONE Skin: Pallor Peripheral Pulses: 3+ Radial (R), 3+ Radial (L) Lymphatic: No Adenopathy Was a procedure done? Was a procedure done?: No EKG EKG : Cardiac Rhythm: NSR Differential Dx Considerations may include: Anemia Electrolyte imbalance X-Ray, Labs, Meds, VS Vital Signs Date Time Temp Pulse Resp B/P (MAP) Pulse Ox O2 Delivery O2 Flow Rate FiO2 11/27/24 10:05 98.4 76 16 109/87 (94) 98 98.4 11/27/24 10:01 73 Lab Test 11/27/24 10:39 Range/Units White Blood Count 5.0 4.4-10.8 10^3/uL Red Blood Count 2.34 L 4.0-5.20 10^6/uL Hemoglobin 8.1 L 12.2-16.2 g/dL Hematocrit 24.4 #L 36.0-46.0 % Mean Corpuscular Volume 104.4 H 80.0-100.0 fL Mean Corpuscular Hemoglobin 34.5 H 28.0-32.0 pg Mean Corpuscular Hemoglobin Concent 33.0 32.0-36.0 g/dL Red Cell Distribution Width 28.4 H 11.8-14.3 % Platelet Count 382 140-450 10^3/uL Mean Platelet Volume 8.5 6.9-10.8 fL Neutrophils (%) (Auto) 52.2 37.0-80.0 % Lymphocytes (%) (Auto) 35.0 10.0-50.0 % Monocytes (%) (Auto) 10.1 0.0-12.0 % Eosinophils (%) (Auto) 1.4 0.0-7.0 % Basophils (%) (Auto) 1.3 0.0-2.0 % Neutrophils # (Auto) 2.6 1.6-8.6 10 ^3/uL Lymphocytes # (Auto) 1.7 0.4-5.4 10 ^3/uL Monocytes # (Auto) 0.5 0-1.3 10 ^3/uL Eosinophils # (Auto) 0.1 0-0.8 10 ^3/uL Basophils # (Auto) 0.1 0-0.2 10 ^3/uL Nucleated Red Blood Cells 0.1 % Sodium Level 143 136-145 mmol/L Potassium Level 4.2 3.5-5.1 mmol/L Chloride Level 112 H 98-107 mmol/L Carbon Dioxide Level 25 20-31 mmol/L Anion Gap 6 5-15 Blood Urea Nitrogen 9 9-23 mg/dL Creatinine 0.46 L 0.550-1.02 mg/dL Glomerular Filtration Rate Calc 93 >90 mL/min BUN/Creatinine Ratio 19.6 10.0-20.0 Serum Glucose 95 74-106 mg/dL Calcium Level 9.5 8.7-10.4 mg/dL Troponin I High Sensitivity 5 </=34 ng/L Patient has dementia. Generalized weakness. Hemoglobin is low. Saturation pristine on room air. Recently discharged from this hospital after having blood transfusion. GI consultation. Unknown why her hemoglobin still low. Waiting for family. Cardiac marker within normal limits. Continue to monitor. Time of 1ST Reevaluation: 10:15 Reevaluation 1ST: Unchanged Patient Education/Counseling: Other (Dementia) Family Education/Counseling: No Family Present Departure 1 Departure Time of Disposition: 10:16 Impression: Primary Impression: Generalized weakness Additional Impression: Anemia Qualified Codes: D64.9 - Anemia, unspecified Disposition: ADMITTED INPATIENT Admit to: Med Surg Condition: Guarded Critical Care Note Critical Care Time?: No Stability Stability form required: No Heart Score Heart Score: Heart Score Response (Comments) Value History Slightly Suspicious 0 EKG Normal 0 Age >65 2 Risk Factors >3 or Hx ASHD 2 Troponin Normal limit 0 Total 4 SUSAN ELLIOTT MD November 27, 2024 10:16
--- NOTE | 2024-11-27 10:59 | DVH ---
EXAM: XY CHEST PORTABLE Indication: sob Technique: Single frontal view of the chest was obtained Comparison: XY CHEST XRAY 1 VIEW on DOS: 11/18/24, CHEST PORTABLE on DOS: 04/29/22, CXRP on DOS: 04/29, EKG on DOS: 04/29/22, CXRP on DOS: 07/30/21 FINDINGS: Lines and Tubes: None Lungs: No focal consolidation. Pleura: No effusion. No pneumothorax. Cardiomediastinal contours: Unremarkable. Atherosclerotic vascular calcifications of the thoracic aor ta are noted. Bones: No acute osseous abnormality. IMPRESSION: No acute cardiopulmonary disease.
[2024-11-27 11:01] LABS: Basophils # (auto) 0.1 10 ^3/uL (0-0.2); Basophils % (auto) 1.3 % (0.0-2.0); Eosinophils # (auto) 0.1 10 ^3/uL (0-0.8); Eosinophils % (auto) 1.4 % (0.0-7.0); Hematocrit 24.4 % (36.0-46.0); Hemoglobin 8.1 g/dL (12.2-16.2); Lymphocytes # (auto) 1.7 10 ^3/uL (0.4-5.4); Mean Corpuscular Hemoglobin 34.5 pg (28.0-32.0); Mean Corpuscular Volume 104.4 fL (80.0-100.0); Monocytes # (auto) 0.5 10 ^3/uL (0-1.3); Monocytes % (auto) 10.1 % (0.0-12.0); Neutrophils # (auto) 2.6 10 ^3/uL (1.6-8.6); Neutrophils % (auto) 52.2 % (37.0-80.0); Nucleated Red Blood Cells % 0.1 %; Platelet Count (auto) 382 10^3/uL (140-450); Red Blood Cells 2.34 10^6/uL (4.0-5.20)
[2024-11-27 11:03] LABS: Red Cell Distribution Width 28.4 % (11.8-14.3)
[2024-11-27 11:10] LABS: Potassium 4.2 mmol/L (3.5-5.1); Sodium 143 mmol/L (136-145)
[2024-11-27 11:11] LABS: Anion Gap 6 (5-15); Calcium 9.5 mg/dL (8.7-10.4); Carbon Dioxide 25 mmol/L (20-31)
[2024-11-27 11:12] LABS: Chloride 112 mmol/L (98-107)
[2024-11-27 11:16] LABS: BUN/Creatinine Ratio 19.6 (10.0-20.0); Glucose 95 mg/dL (74-106)
[2024-11-27 11:17] LABS: Blood Urea Nitrogen 9 mg/dL (9-23)
[2024-11-27] MEDS ORDERED: DOCUSATE SOD 100 MG CAP PO PRN (14:00)
[2024-11-27] MEDS ORDERED: MORPHINE SULFATE INJ 2 MG/ml SYRG IV PRN (14:00)
[2024-11-27] MEDS ORDERED: ACETAMINOPHEN 325 MG TAB PO PRN (14:00)
[2024-11-27] MEDS: SODIUM CHLORIDE 0.9% 1,000 ML IV SCH (14:00)
[2024-11-27] MEDS ORDERED: ONDANSETRON HCL 4 MG/2 ML VIAL IV PRN (14:00)
[2024-11-27] MEDS ORDERED: NITROGLYCERIN 0.4 MG SL TAB SL PRN (14:00)
--- NOTE | 2024-11-27 14:15 | DVHHPRES ---
History of Present Illness Resident Creating Document: TRUPTI MERCEDES RESIDENT History of Present Illness Katina ANDREWS a 84-year-old female with a PMH of dementia, chronic microcytic anemia presented to the ED with the chief complaints of mechanical fall without loss of consciousness. Patient is poor historian, history obtained from the daughter. Per daughter patient recently discharged 2 days back from this facility after being treated for diarrhea, after the discharge patient has been feeling weakness, tiredness which has been worsening and yesterday patient had mechanical fall without LOC and did not hit head Which prompted her to visit ED. on my assessment patient denies fever, nausea, vomiting, chills, abdominal pain, head injury, recent travel, sick contact other associated symptoms. PMH: Chronic microcytic anemia, dementia, bilateral hearing loss, glaucoma PSH: Hysterectomy Social history: Lives with daughter. Denies smoking, alcohol and other drug abuse Allergies: No known allergies Home medications: Latanoprost, dorzolamide timolol Review of Systems Review of Systems Patient seen and examined at the bedside. Currently patient reporting diet and weakness, rest of the symptoms as described above Constitutional: Yes: Weakness, Malaise ENT: Other (Hearing loss) Allergies: Coded Allergies: NO KNOWN ALLERGIES (Unverified , 04/29/11) Medications Current Medications Medications Dose Ordered Sig/Eugene Route Start Time Stop Time Status Last Admin Dose Admin Sodium Chloride 1,000 ml @ 60 mls/hr [id number] IV 11/27/24 14:00 Ondansetron HCl 4 mg Q4HP PRN IV 11/27/24 14:00 Docusate Sodium 100 mg BIDPRN PRN PO 11/27/24 14:00 Acetaminophen 650 mg Q6HP PRN PO 11/27/24 14:00 Nitroglycerin 0.4 mg Q5MINP PRN SL 11/27/24 14:00 Morphine Sulfate 2 mg Q30M PRN IV 11/27/24 14:00 Exam Vital Signs Vital Signs Date Time Temp Pulse Resp B/P (MAP) Pulse Ox O2 Delivery O2 Flow Rate FiO2 11/27/24 10:05 98.4 76 16 109/87 (94) 98 98.4 Exam Pt is lying on bed General Appearance: Alert, Oriented X1 which is baseline according to her daughter, Cooperative, Not in acute distress HEENT: Atraumatic, Mucous membranes moist/pink, hard of hearing Respiratory: Clear to auscultation, Normal air movement, No added sounds Cardiovascular: Regular rate, Normal S1, Normal S2, No murmurs Abdominal: Active bowel sounds, Soft, no distention, no tenderness Extremities: No edema, Normal pulses, No tenderness/swelling Skin: No Significant rash, except past surgical scars Neuro: Normal speech, generalized weakness Psych/Mental Status: Mental status NL, Mood NL Nurse was there as sharperone during examination Labs/Xrays Labs Test 11/27/24 10:39 Range/Units White Blood Count 5.0 4.4-10.8 10^3/uL Red Blood Count 2.34 L 4.0-5.20 10^6/uL Hemoglobin 8.1 L 12.2-16.2 g/dL Hematocrit 24.4 #L 36.0-46.0 % Mean Corpuscular Volume 104.4 H 80.0-100.0 fL Mean Corpuscular Hemoglobin 34.5 H 28.0-32.0 pg Mean Corpuscular Hemoglobin Concent 33.0 32.0-36.0 g/dL Red Cell Distribution Width 28.4 H 11.8-14.3 % Platelet Count 382 140-450 10^3/uL Mean Platelet Volume 8.5 6.9-10.8 fL Neutrophils (%) (Auto) 52.2 37.0-80.0 % Lymphocytes (%) (Auto) 35.0 10.0-50.0 % Monocytes (%) (Auto) 10.1 0.0-12.0 % Eosinophils (%) (Auto) 1.4 0.0-7.0 % Basophils (%) (Auto) 1.3 0.0-2.0 % Neutrophils # (Auto) 2.6 1.6-8.6 10 ^3/uL Lymphocytes # (Auto) 1.7 0.4-5.4 10 ^3/uL Monocytes # (Auto) 0.5 0-1.3 10 ^3/uL Eosinophils # (Auto) 0.1 0-0.8 10 ^3/uL Basophils # (Auto) 0.1 0-0.2 10 ^3/uL Nucleated Red Blood Cells 0.1 % Sodium Level 143 136-145 mmol/L Potassium Level 4.2 3.5-5.1 mmol/L Chloride Level 112 H 98-107 mmol/L Carbon Dioxide Level 25 20-31 mmol/L Anion Gap 6 5-15 Blood Urea Nitrogen 9 9-23 mg/dL Creatinine 0.46 L 0.550-1.02 mg/dL Glomerular Filtration Rate Calc 93 >90 mL/min BUN/Creatinine Ratio 19.6 10.0-20.0 Serum Glucose 95 74-106 mg/dL Calcium Level 9.5 8.7-10.4 mg/dL Troponin I High Sensitivity 5 </=34 ng/L Assessment/Plan Assessment/Plan # Mechanica Fall without LOC # Fatigue & Generalized weakness likely from anemia # Chronic macrocytic anemia - monitor H&H - CXR showed no acute changes - ordered urinalysis, PT PTT, SOB, lactic acid, hepatic panel - Head CT not indicated due to did not hit head # History of dementia # Glaucoma - on latanoprost Protonix No DVT PPX Diet as tolerated Goals of care discussed with the patient's daughter for more than 29 minutes: Full code status Case discussed with Dr. Thibodeaux, patient and nurse Plan discussed with: Patient, Other (Daughter) My Orders Orders - TRUPTI MERCEDES RESIDENT Procedure Category Date Status Time Admit ADMIT 11/27/24 Transmitted 13:59 Allergies YAMILEX 11/27/24 In Process 13:59 Code Status CODE 11/27/24 Transmitted 13:59 Sodium Chloride 0.9% PHA 11/27/24 In Process 14:00 Ondansetron Hcl PHA 11/27/24 In Process (Zofran) 14:00 Docusate Sodium PHA 11/27/24 In Process Capsule (Colace 14:00 Complete Blood Count LAB 11/28/24 Verified 04:00 Comprehensive LAB 11/28/24 Verified Metabolic Panel 04:00 Condition: Stable YAMILEX 11/27/24 In Process 13:59 Acetaminophen Tablet PHA 11/27/24 In Process (Tylenol Tablet) 14:00 Clear Liq Diet DIET 11/27/24 Transmitted Dinner Sequential YAMILEX 11/27/24 In Process Compression Device Nitroglycerin PHA 11/27/24 In Process Sublingual (Ntrostat 14:00 Morphine Sulfate PHA 11/27/24 In Process Injection 14:00 Oxygen By Nasal RT 11/27/24 Transmitted Cannula 13:59 Stat Ekg For Chest YAMILEX 11/27/24 In Process Pain 13:59 Notify Of Changes YAMILEX 11/27/24 In Process From Base 13:59 Mastercam Programmer For [facility] 11/27/24 In Process 24 Hours 13:59 Emergency Dysrhythmia [facility] 11/27/24 In Process Protocol 13:59 Rhythm Strips Once [facility] 11/27/24 In Process Every Shift 13:59 Ammonia LAB 11/27/24 Logged 14:06 Hepatic Panel LAB 11/27/24 Logged 14:06 Lactic Acid W/ Reflex LAB 11/27/24 Logged Order 14:06 Urinalysis LAB 11/27/24 Logged 14:06 Rapid Influenza A&B LAB 11/27/24 Logged 14:06 Covid19 Antigen [place] LAB 11/27/24 Logged 14:06 Stool Occult Blood LAB 11/27/24 Logged 14:06 PTPTT LAB 11/27/24 Logged 14:06 Magnesium LAB 11/27/24 Logged 14:06 Date of Service: November 27, 2024 Billing Provider: CHAYITO THIBODEAUX MD Common Visit Codes: 09922-NGVCVIB INP/OBS CARE (HIGH) Secondary Visit Codes: 73100-VHGGRNAL CARE PLAN 30 MINUTES TRUPTI MERCEDES RESIDENT November 27, 2024 14:15 CHAYITO THIBODEAUX MD November 28, 2024 09:57
[2024-11-27 14:32] LABS: Albumin 3.9 g/dL (3.2-4.8); Magnesium 1.9 mg/dL (1.6-2.6); Total Protein 5.9 g/dL (5.7-8.2)
[2024-11-27 14:36] LABS: Bilirubin, Direct 0.5 mg/dL (<0.3)
[2024-11-27 14:41] LABS: INR 1.12 (0.9-1.15); Partial Thromboplastin Time 27.5 SEC (24.5-34.5); Prothrombin Time 11.7 sec (9.3-11.8)
[2024-11-27 18:32] VITALS: BP 106/45; PULSE 78; RESP 18; RESP 19; TEMP 98.2; O2SAT 96
--- NOTE | 2024-11-27 18:58 | ECG ---
[facility] Test Date: 2024-11-27 Test Time: 10:01:46 Pat Name: ANTHONY ANDREWS Department: ED Room: 0290 B Gender: F Spot Cleaner: kevin : 1940 Requested By: SUSAN ELLIOTT Order Number: [id number] Reading MD: Jc Pinzon Measurements Intervals [place] Rate: 73 P: 46 IN: 173 QRS: 2 QRSD: 81 T: 7 QT: 361 QTc: 398 Interpretive Statements Sinus rhythm Electronically Signed On 12-01-2024 22:03:31 PDT by Jc Pinzon Please click the below link to view image of tracing.
[2024-11-27 20:00] VITALS: PULSE 80; RESP 18; O2SAT 96
[2024-11-27 21:00] VITALS: BP 106/45; PULSE 78; RESP 19; TEMP 98.2; O2SAT 96
[2024-11-27 21:24] LABS: COVID19 ANTIGEN SOFIA FIA NEGATIVE (NEGATIVE)
[2024-11-27 22:47] LABS: Urine Bacteria None Seen /hpf (None Seen)
[2024-11-27 22:59] LABS: Urine Blood Negative /uL (Negative); Urine Clarity Clear (Clear); Urine Color Yellow (Yellow); Urine Mucus FEW (None Seen); Urine Protein, UAD Negative (Negative); Urine Specific Gravity 1.015 (1.001-1.035); Urine Squamous Epithelial Cell FEW /hpf (<5); Urine Urobilinogen Normal (Negative); Urine WBC 16 /HPF (0-5); Urine pH 6.5 (5.0-9.0)
[2024-11-28] VITALS (10 sets, daily range): BP systolic 90–119; BP diastolic 35–64; PULSE 67–83; RESP 16–20; TEMP 97.5–99.2; O2SAT 94–99
[2024-11-28 07:11] LABS: Rapid Influenza A Negative (Negative); Rapid Influenza B Negative (Negative)
[2024-11-28 07:23] LABS: Basophils # (auto) 0 10 ^3/uL (0-0.2); Basophils % (auto) 1.3 % (0.0-2.0); Eosinophils # (auto) 0.1 10 ^3/uL (0-0.8); Monocytes # (auto) 0.4 10 ^3/uL (0-1.3); Neutrophils # (auto) 1.4 10 ^3/uL (1.6-8.6); White Blood Cell 3.6 10^3/uL (4.4-10.8)
[2024-11-28 07:26] LABS: Hematocrit 20.9 % (36.0-46.0); Lymphocytes # (auto) 1.7 10 ^3/uL (0.4-5.4); Lymphocytes % (auto) 46.5 % (10.0-50.0); Mean Corpuscular Volume 105.9 fL (80.0-100.0); Neutrophils % (auto) 39.2 % (37.0-80.0); Platelet Count (auto) 319 10^3/uL (140-450); Red Blood Cells 1.97 10^6/uL (4.0-5.20)
[2024-11-28 07:36] LABS: Red Cell Distribution Width 28.2 % (11.8-14.3)
[2024-11-28 07:37] LABS: Hemoglobin 6.9 g/dL (12.2-16.2)
[2024-11-28 07:58] LABS: Alanine Aminotransferase 23 U/L (7-40); Alkaline Phosphatase 58 U/L (46-116); Anion Gap 8 (5-15); BUN/Creatinine Ratio 16.7 (10.0-20.0); Carbon Dioxide 22 mmol/L (20-31); Glucose 87 mg/dL (74-106); Potassium 3.9 mmol/L (3.5-5.1); Sodium 144 mmol/L (136-145)
[2024-11-28 07:59] LABS: Albumin 3.2 g/dL (3.2-4.8); Aspartate Aminotransferase 22 U/L (13-40); Bilirubin, Total 0.9 mg/dL (0.2-1.0); Blood Urea Nitrogen 7 mg/dL (9-23); Calcium 8.7 mg/dL (8.7-10.4); Chloride 114 mmol/L (98-107); Total Protein 5.1 g/dL (5.7-8.2)
[2024-11-28] MEDS: PANTOPRAZOLE 40 MG/10 ML VIAL INJ IV SCH (08:56)
--- NOTE | 2024-11-28 11:28 | DVHPNRES ---
Progress Note Date Seen: November 28, 2024 Resident Creating Document: TRUPTI MERCEDES RESIDENT Has the PT tested + for MRSA If YES, has PT been informed?: No Medical Necessity Reason Pt with a Central, PICC or Fol: No Subjective Review of Systems Patient seen and examined at the bedside. Patient reporting feeling weak and fatigue. Continuously monitoring H&H. Transfuse 1 PRBC. Ordered bone marrow biopsy. Patient reports: No new complaints Objective vital signs Vital Sign Date Time Temp Pulse Resp B/P (MAP) Pulse Ox O2 Delivery O2 Flow Rate FiO2 11/28/24 09:30 98.3 73 18 90/43 (59) 94 98.3 11/28/24 08:00 Room Air* 0 21 Total Intake and Output 11/27/24 11/27/24 11/28/24 15:00 23:00 07:00 Intake Total 250 ml 240 ml Output Total 650 ml Balance -400 ml 240 ml medications Current Medications Medications Dose Ordered Sig/Eugene Route Start Time Stop Time Status Last Admin Dose Admin Ondansetron HCl 4 mg Q4HP PRN IV 11/27/24 14:00 Docusate Sodium 100 mg BIDPRN PRN PO 11/27/24 14:00 Acetaminophen 650 mg Q6HP PRN PO 11/27/24 14:00 Nitroglycerin 0.4 mg Q5MINP PRN SL 11/27/24 14:00 Morphine Sulfate 2 mg Q30M PRN IV 11/27/24 14:00 Pantoprazole Sodium 40 mg DAILY IV 11/28/24 10:00 11/28/24 08:56 40 MG Enteral Nutritional Formula 240 ml TIDWM PO 11/28/24 12:00 UNV Examination Pt is lying on bed General Appearance: Alert, Oriented X1 which is baseline according to her daughter, Cooperative, Not in acute distress HEENT: Atraumatic, Mucous membranes moist/pink, hard of hearing Respiratory: Clear to auscultation, Normal air movement, No added sounds Cardiovascular: Regular rate, Normal S1, Normal S2, No murmurs Abdominal: Active bowel sounds, Soft, no distention, no tenderness Extremities: No edema, Normal pulses, No tenderness/swelling Skin: No Significant rash, except past surgical scars Neuro: Normal speech, generalized weakness Psych/Mental Status: Mental status NL, Mood NL Nurse was there as sharperone during examination laboratory and microbiology Laboratory Tests 11/28/24 06:06 Test 11/28/24 06:06 Range/Units Serum Glucose 87 74-106 mg/dL Labs and/or images reviewed: Labs reviewed by me, Image(s) reviewed by me Problem List/Assessment/Plan Problem List/Assessment/Plan # Mechanica Fall without LOC # Fatigue & Generalized weakness likely from anemia # acute on Chronic macrocytic anemia required blood transfusion - monitor H&H - CXR showed no acute changes - ordered urinalysis, PT PTT, SOB, lactic acid, hepatic panel -1 PRBC - Head CT not indicated due to did not hit head - bone marrow biopsy, IR consult placed - DC IVF # malnutrition -dietary consult -ensure # Acute complicated UTI/ cystitis - evident on urinalysis - ordered urine bacterial culture - currently giving Rocephin # History of dementia # Glaucoma - on latanoprost Protonix No DVT PPX Diet as tolerated Goals of care discussed with the patient's daughter for more than 29 minutes: Full code status Case discussed with Dr. Ortega, patient and nurse Plan discussed with: Patient, Daughter My Orders My Orders Orders - TRUPTI MERCEDES RESIDENT Procedure Category Date Status Time Admit ADMIT 11/27/24 Transmitted 13:59 Allergies YAMILEX 11/27/24 In Process 13:59 Code Status CODE 11/27/24 Transmitted 13:59 Ondansetron Hcl PHA 11/27/24 In Process (Zofran) 14:00 Docusate Sodium PHA 11/27/24 In Process Capsule (Colace 14:00 Condition: Stable YAMILEX 11/27/24 In Process 13:59 Acetaminophen Tablet PHA 11/27/24 In Process (Tylenol Tablet) 14:00 Sequential YAMILEX 11/27/24 In Process Compression Device Nitroglycerin PHA 11/27/24 In Process Sublingual (Ntrostat 14:00 Morphine Sulfate PHA 11/27/24 In Process Injection 14:00 Oxygen By Nasal RT 11/27/24 Transmitted Cannula 13:59 Stat Ekg For Chest YAMILEX 11/27/24 In Process Pain 13:59 Notify Of Changes YAMILEX 11/27/24 In Process From Base 13:59 Systems Technician For YAMILEX 11/27/24 In Process 24 Hours 13:59 Emergency Dysrhythmia YAMILEX 11/27/24 In Process Protocol 13:59 Rhythm Strips Once YAMILEX 11/27/24 In Process Every Shift 13:59 Stool Occult Blood LAB 11/27/24 Logged 14:06 Pantoprazole PHA 11/28/24 In Process (Protonix) 10:00 Type And Screen BBK 11/28/24 In Process 08:05 * Radiologist Consult CONS 11/28/24 Verified 11:21 Complete Blood Count LAB 11/29/24 Verified 04:00 Comprehensive LAB 11/29/24 Verified Metabolic Panel 04:00 Magnesium LAB 11/29/24 Verified 04:00 TRUPTI MERCEDES RESIDENT November 28, 2024 11:28
[2024-11-28] MEDS: Ensure HIGH Protein Chocolate 8oz Bottle PO SCH (12:00)
[2024-11-28] MEDS: cefTRIAXone 1GM/50ML D5W 50 ML IV ONE (15:06)
[2024-11-29] VITALS (7 sets, daily range): BP systolic 95–123; BP diastolic 50–68; PULSE 71–86; RESP 17–18; TEMP 96.8–98.7; O2SAT 96–98
[2024-11-29] MEDS: LIDOCAINE 2%HCL (LOCAL ANESTH.) INJ 10ml MDV ONE ×2 (07:32→08:16)
[2024-11-29] MEDS: fentaNYL CITRATE 100 MCG/2 ML VL IV ONE (08:00)
[2024-11-29] MEDS: MIDAZOLAM HCL 2MG/2ML 2ml VIAL (1mg/ml) IV ONE (08:00)
[2024-11-29] MEDS: cefTRIAXone 1GM/50ML D5W 50 ML IV SCH (08:30)
--- NOTE | 2024-11-29 09:33 | DVH ---
PROCEDURE: CT GUIDED BIOPSY OF HISTORY: BONE MARROW BX HISTORY: BONE MARROW BX COMPARISON: None PROCEDURE: Informed consent and time-out was performed before the procedure. Conscious sedation was p erformed by the interventional radiology nurse. The pelvic bone was marked, sterilized, draped, and l ocally anesthetized using approximately 8 ml of 1% lidocaine. Axial CT images were used for localizat ion. A 11 gauge GigDropper Bone Biopsy kit was used to take 12 mL aspirate and 1 core. The biopsy need le was then removed. No immediate complications noted. FINDINGS: Axial CT images demonstrates biopsy needle within the right posterior pelvic bone. IMPRESSION: Successful CT-guided bone marrow aspiration biopsy of the right posterior pelvic bone.
--- NOTE | 2024-11-29 09:33 | DVH ---
CT PELVIS WO CONTRAST, HISTORY: BONE MARROW BX COMPARISON: None PROCEDURE: Informed consent and time-out was performed before the procedure. Conscious sedation was p erformed by the interventional radiology nurse. The pelvic bone was marked, sterilized, draped, and l ocally anesthetized using approximately 8 ml of 1% lidocaine. Axial CT images were used for localizat ion. A 11 gauge Jigsaw Bone Biopsy kit was used to take 12 mL aspirate and 1 core. The biopsy need le was then removed. No immediate complications noted. FINDINGS: Axial CT images demonstrates biopsy needle within the right posterior pelvic bone. IMPRESSION: Successful CT-guided bone marrow aspiration biopsy of the right posterior pelvic bone.
[2024-11-29 10:54] LABS: Basophils # (auto) 0.1 10 ^3/uL (0-0.2); Eosinophils # (auto) 0.1 10 ^3/uL (0-0.8); Hemoglobin 10.1 g/dL (12.2-16.2)
[2024-11-29 10:56] LABS: Basophils % (auto) 1.3 % (0.0-2.0); Eosinophils % (auto) 2.1 % (0.0-7.0); Hematocrit 31.6 % (36.0-46.0); Lymphocytes # (auto) 1.5 10 ^3/uL (0.4-5.4); Lymphocytes % (auto) 26.2 % (10.0-50.0); Mean Corpuscular Hemoglobin 32.7 pg (28.0-32.0); Mean Corpuscular Hgb Conc. 31.9 g/dL (32.0-36.0); Mean Corpuscular Volume 102.6 fL (80.0-100.0); Monocytes # (auto) 0.6 10 ^3/uL (0-1.3); Neutrophils # (auto) 3.5 10 ^3/uL (1.6-8.6); Neutrophils % (auto) 59.4 % (37.0-80.0); Nucleated Red Blood Cells % 0.3 %; Platelet Count (auto) 409 10^3/uL (140-450); Red Blood Cells 3.08 10^6/uL (4.0-5.20); White Blood Cell 5.8 10^3/uL (4.4-10.8)
[2024-11-29 10:59] LABS: Red Cell Distribution Width 32.4 % (11.8-14.3)
[2024-11-29 11:04] LABS: Alanine Aminotransferase 23 U/L (7-40); Albumin 3.8 g/dL (3.2-4.8); Alkaline Phosphatase 70 U/L (46-116); Anion Gap 5 (5-15); Aspartate Aminotransferase 26 U/L (13-40); Blood Urea Nitrogen 11 mg/dL (9-23); Carbon Dioxide 23 mmol/L (20-31); Potassium 4.1 mmol/L (3.5-5.1); Sodium 143 mmol/L (136-145)
[2024-11-29 11:06] LABS: Bilirubin, Total 1.2 mg/dL (0.2-1.0); Chloride 115 mmol/L (98-107); Glucose 107 mg/dL (74-106)
--- NOTE | 2024-11-29 11:33 | DVHPNRES ---
Progress Note Date Seen: November 29, 2024 Resident Creating Document: TRUPTI MERCEDES RESIDENT Has the PT tested + for MRSA If YES, has PT been informed?: No Medical Necessity Reason Pt with a Central, PICC or Fol: No Subjective Review of Systems Patient seen and examined at the bedside. No active complaints except weakness. Continuously monitoring her lab. Bone marrow biopsy today. Objective vital signs Vital Sign Date Time Temp Pulse Resp B/P (MAP) Pulse Ox O2 Delivery O2 Flow Rate FiO2 11/29/24 09:30 96.8 82 18 123/68 (86) 97 96.8 11/29/24 08:10 Room Air* 0 21 Total Intake and Output 11/28/24 11/28/24 11/29/24 15:00 23:00 07:00 Intake Total 780 ml 450 ml 300 ml Balance 780 ml 450 ml 300 ml medications Current Medications Medications Dose Ordered Sig/Eugene Route Start Time Stop Time Status Last Admin Dose Admin Ondansetron HCl 4 mg Q4HP PRN IV 11/27/24 14:00 Docusate Sodium 100 mg BIDPRN PRN PO 11/27/24 14:00 Acetaminophen 650 mg Q6HP PRN PO 11/27/24 14:00 Nitroglycerin 0.4 mg Q5MINP PRN SL 11/27/24 14:00 Morphine Sulfate 2 mg Q30M PRN IV 11/27/24 14:00 Pantoprazole Sodium 40 mg DAILY IV 11/28/24 10:00 11/28/24 08:56 40 MG Enteral Nutritional Formula 240 ml TIDWM PO 11/28/24 12:00 11/29/24 07:33 240 ML Ceftriaxone Sodium 50 ml @ 100 mls/hr DAILY@09 IV 11/29/24 09:00 Examination Pt is lying on bed General Appearance: Alert, Oriented X1-2 which is baseline according to her daughter, Cooperative, Not in acute distress HEENT: Atraumatic, Mucous membranes moist/pink, hard of hearing, conjunctival pallor Respiratory: Clear to auscultation, Normal air movement, No added sounds Cardiovascular: Regular rate, Normal S1, Normal S2, No murmurs Abdominal: Active bowel sounds, Soft, no distention, no tenderness Extremities: No edema, Normal pulses, No tenderness/swelling Skin: No Significant rash, except past surgical scars Neuro: Normal speech, generalized weakness Nurse was there as ap operator during examination laboratory and microbiology Laboratory Tests 11/29/24 10:25 Test 11/29/24 10:25 Range/Units Serum Glucose 107 H 74-106 mg/dL Labs and/or images reviewed: Labs reviewed by me, Image(s) reviewed by me Problem List/Assessment/Plan Problem List/Assessment/Plan # Mechanical Fall without LOC # Fatigue & Generalized weakness likely from anemia # acute on Chronic macrocytic anemia required blood transfusion - monitor H&H - CXR showed no acute changes -1 PRBC-status post transfusion hemoglobin is 10.1 but monitor continuously - Head CT not indicated due to did not hit head - bone marrow biopsy done today 11/30/2019 by IR - D/C IVF # malnutrition -dietary consult -ensure # Acute complicated UTI/ cystitis - evident on urinalysis - ordered urine bacterial culture - currently giving Rocephin # History of dementia # Glaucoma - on latanoprost Protonix No DVT PPX Diet as tolerated Goals of care discussed with the patient's daughter for 20 minutes: Full code status Case discussed with Dr. Chacon, patient and nurse Plan discussed with: Patient, Daughter, Other (Nurse) My Orders My Orders Orders - TRUPTI MERCEDES RESIDENT Procedure Category Date Status Time Ct Guidance For CT 11/29/24 Resulted Needle Placeme 12:[address] 11/29/24 Resulted 12:22 Rbc Morphology LAB 11/29/24 In Process 10:25 Addendum Addendum Addendum I was physically present for the [place] portions of the service provided to patient by THE RESIDENT. I have reviewed the documentation, discussed the case with resident and agree with the resident's documentation except as noted. Also the patient's clinical case was discussed with the patient's nurse. This medical document was created using an electronic medical record system with computerized dictation system. Although this document has been carefully reviewed, there might still be some phonetic and typographical errors. These areas are purely typographical due to imperfections of the software programs, and do not reflect any compromise in the patient's medical care. Late signature. Date of Service: November 29, 2024 Billing Provider: ALFREDO CHACON MD Common Visit Codes: [id number] INP/OBS CARE(HIGH) Secondary Visit Codes: [id number] CARE PLAN 30 MINUTES (20 minutes) TRUPTI MERCEDES RESIDENT November 29, 2024 11:32 ALFREDO CHACON MD November 30, 2024 06:35
[2024-11-29 12:07] LABS: Anisocytosis Marked; Hypochromia Slight; Macrocytosis Slight; Platelet Estimate Adequate; Tear Drop Cells FEW
[2024-11-30 01:00] VITALS: BP_SYST 114; BP_SYST 124; BP_DIAS 63; BP_DIAS 76; PULSE 65; PULSE 79; RESP 17; RESP 18; TEMP 97.1; TEMP 98.1; O2SAT 95; O2SAT 97
[2024-11-30 05:00] VITALS: BP 108/62; PULSE 78; RESP 17; TEMP 97.9; O2SAT 97
[2024-11-30 07:03] LABS: Basophils # (auto) 0.1 10 ^3/uL (0-0.2); Basophils % (auto) 0.8 % (0.0-2.0); Eosinophils # (auto) 0.2 10 ^3/uL (0-0.8); Eosinophils % (auto) 2.7 % (0.0-7.0); Hematocrit 25.8 % (36.0-46.0); Hemoglobin 8.5 g/dL (12.2-16.2); Lymphocytes # (auto) 1.6 10 ^3/uL (0.4-5.4); Lymphocytes % (auto) 25.2 % (10.0-50.0); Mean Corpuscular Hemoglobin 32.4 pg (28.0-32.0); Mean Corpuscular Hgb Conc. 33.1 g/dL (32.0-36.0); Mean Corpuscular Volume 97.9 fL (80.0-100.0); Monocytes # (auto) 0.7 10 ^3/uL (0-1.3); Neutrophils # (auto) 3.8 10 ^3/uL (1.6-8.6); Neutrophils % (auto) 60.3 % (37.0-80.0); Platelet Count (auto) 382 10^3/uL (140-450); Red Blood Cells 2.63 10^6/uL (4.0-5.20); White Blood Cell 6.4 10^3/uL (4.4-10.8)
[2024-11-30 07:14] LABS: Red Cell Distribution Width 31.1 % (11.8-14.3)
[2024-11-30 07:24] LABS: Alanine Aminotransferase 22 U/L (7-40); Albumin 3.5 g/dL (3.2-4.8); Alkaline Phosphatase 72 U/L (46-116); Anion Gap 6 (5-15); Aspartate Aminotransferase 22 U/L (13-40); BUN/Creatinine Ratio 46.8 (10.0-20.0); Blood Urea Nitrogen 22 mg/dL (9-23); Carbon Dioxide 23 mmol/L (20-31); Glucose 103 mg/dL (74-106); Magnesium 1.9 mg/dL (1.6-2.6); Potassium 4.4 mmol/L (3.5-5.1); Sodium 142 mmol/L (136-145)
[2024-11-30 07:25] LABS: Bilirubin, Total 0.9 mg/dL (0.2-1.0); Chloride 113 mmol/L (98-107); Total Protein 5.6 g/dL (5.7-8.2)
[2024-11-30 09:00] VITALS: BP 109/60; PULSE 77; RESP 16; TEMP 96.4; O2SAT 96
[2024-11-30] MEDS: FOLIC ACID 1 MG in D5W 5% 50 ML INJ ONE (10:33)
[2024-11-30 12:46] VITALS: BP 108/56; PULSE 79; RESP 16; TEMP 97.2; O2SAT 97
--- NOTE | 2024-11-30 13:57 | DVHPNRES ---
Progress Note Date Seen: November 30, 2024 Resident Creating Document: TRUPTI MERCEDES RESIDENT Has the PT tested + for MRSA If YES, has PT been informed?: No Medical Necessity Reason Pt with a Central, PICC or Fol: No Subjective Review of Systems Patient seen and examined at the bedside. Overnight events reviewed, no new complaints at the reported at this time. Continuously monitor H&H. Patient reports: Feels better Objective vital signs Vital Sign Date Time Temp Pulse Resp B/P (MAP) Pulse Ox O2 Delivery O2 Flow Rate FiO2 11/30/24 12:46 97.2 79 16 108/56 (73) 97 97.2 11/30/24 08:00 Room Air* 0 21 Total Intake and Output 11/29/24 11/29/24 11/30/24 15:00 23:00 07:00 Intake Total 600 ml 420 ml Balance 600 ml 420 ml medications Current Medications Medications Dose Ordered Sig/Eugene Route Start Time Stop Time Status Last Admin Dose Admin Ondansetron HCl 4 mg Q4HP PRN IV 11/27/24 14:00 Docusate Sodium 100 mg BIDPRN PRN PO 11/27/24 14:00 Acetaminophen 650 mg Q6HP PRN PO 11/27/24 14:00 Nitroglycerin 0.4 mg Q5MINP PRN SL 11/27/24 14:00 Morphine Sulfate 2 mg Q30M PRN IV 11/27/24 14:00 Pantoprazole Sodium 40 mg DAILY IV 11/28/24 10:00 11/30/24 08:52 40 MG Enteral Nutritional Formula 240 ml TIDWM PO 11/28/24 12:00 11/30/24 08:43 240 ML Ceftriaxone Sodium 50 ml @ 100 mls/hr DAILY@09 IV 11/29/24 09:00 11/30/24 08:52 100 MLS/HR Folic Acid 1 mg DAILY PO 12/01/24 10:00 Examination Pt is lying on bed General Appearance: Alert, Oriented X1-2 which is baseline according to her daughter, Cooperative, Not in acute distress HEENT: Atraumatic, Mucous membranes moist/pink, hard of hearing, conjunctival pallor Respiratory: Clear to auscultation, Normal air movement, No added sounds Cardiovascular: Regular rate, Normal S1, Normal S2, No murmurs Abdominal: Active bowel sounds, Soft, no distention, no tenderness Extremities: No edema, Normal pulses, No tenderness/swelling Skin: No Significant rash, except past surgical scars Neuro: Normal speech, generalized weakness Nurse was there as karate teacher during examination laboratory and microbiology Laboratory Tests 11/30/24 06:19 Test 11/30/24 06:19 Range/Units Serum Glucose 103 74-106 mg/dL Microbiology Date/Time Source Procedure Growth Status 11/28/24 11:50 Blood Blood Culture - Preliminary NO GROWTH AFTER 48 HOURS OF INCUBATION. Resulted Labs and/or images reviewed: Labs reviewed by me, Image(s) reviewed by me Problem List/Assessment/Plan Problem List/Assessment/Plan # Mechanical Fall without LOC # Fatigue & Generalized weakness likely from anemia # Acute on Chronic macrocytic anemia required blood transfusion # Folic acid deficiency - monitor H&H - CXR showed no acute changes -1 PRBC- s/p transfusion Hb is 10.1 but today 11/30 hemoglobin dropped to 8.5 continuously monitor, repeated transfusion if Hb falls less than 7 - Head CT not indicated due to did not hit head - bone marrow biopsy done on 11/30/2019 by IR, pending results - D/C IVF - folic acid supplement # malnutrition - dietary consult - ensure # Acute complicated UTI/ cystitis - evident on urinalysis - ordered urine bacterial culture - currently giving Rocephin # History of dementia # Glaucoma - on latanoprost Protonix No DVT PPX Diet as tolerated Case discussed with Dr. Chacon, patient and nurse Plan discussed with: Patient, Daughter, Other (RN) My Orders My Orders Orders - TRUPTI MERCEDES RESIDENT Procedure Category Date Status Time Folic Acid Tablet PHA 12/01/24 In Process 10:00 Addendum Addendum Addendum I was physically present for the [place] portions of the service provided to patient by THE RESIDENT. I have reviewed the documentation, discussed the case with resident and agree with the resident's documentation except as noted. Also the patient's clinical case was discussed with the patient's nurse. This medical document was created using an electronic medical record system with computerized dictation system. Although this document has been carefully reviewed, there might still be some phonetic and typographical errors. These areas are purely typographical due to imperfections of the software programs, and do not reflect any compromise in the patient's medical care. Late signature. Date of Service: November 30, 2024 Billing Provider: ALFREDO CHACON MD Common Visit Codes: [id number] INP/OBS CARE(HIGH) TRUPTI MERCEDES RESIDENT November 30, 2024 13:57 ALFREDO CHACON MD Dec 01, 2024 11:18
[2024-11-30 16:33] VITALS: BP 111/49; PULSE 82; RESP 16; TEMP 97.3; O2SAT 97
[2024-11-30 21:00] VITALS: BP 107/47; PULSE 78; RESP 16; TEMP 97.8; O2SAT 97
[2024-12-01] VITALS (7 sets, daily range): BP systolic 97–126; BP diastolic 44–65; PULSE 73–85; RESP 15–18; TEMP 97.8–99.2; O2SAT 93–97
[2024-12-01 06:30] LABS: Basophils # (auto) 0.1 10 ^3/uL (0-0.2); Basophils % (auto) 1.2 % (0.0-2.0); Eosinophils # (auto) 0.2 10 ^3/uL (0-0.8); Eosinophils % (auto) 4.6 % (0.0-7.0); Hematocrit 25.3 % (36.0-46.0); Hemoglobin 8.5 g/dL (12.2-16.2); Lymphocytes # (auto) 1.5 10 ^3/uL (0.4-5.4); Lymphocytes % (auto) 28.5 % (10.0-50.0); Mean Corpuscular Hgb Conc. 33.6 g/dL (32.0-36.0); Mean Corpuscular Volume 98.1 fL (80.0-100.0); Monocytes # (auto) 0.6 10 ^3/uL (0-1.3); Neutrophils # (auto) 2.9 10 ^3/uL (1.6-8.6); Neutrophils % (auto) 54.7 % (37.0-80.0); Nucleated Red Blood Cells % 0.1 %; Platelet Count (auto) 382 10^3/uL (140-450); Red Blood Cells 2.58 10^6/uL (4.0-5.20); White Blood Cell 5.3 10^3/uL (4.4-10.8)
[2024-12-01 06:40] LABS: Anion Gap 6 (5-15); Carbon Dioxide 25 mmol/L (20-31); Potassium 4.1 mmol/L (3.5-5.1); Sodium 143 mmol/L (136-145)
[2024-12-01 06:42] LABS: Calcium 9.1 mg/dL (8.7-10.4); Chloride 112 mmol/L (98-107); Red Cell Distribution Width 30.7 % (11.8-14.3)
[2024-12-01 06:46] LABS: BUN/Creatinine Ratio 35.6 (10.0-20.0); Blood Urea Nitrogen 16 mg/dL (9-23); Glucose 90 mg/dL (74-106)
[2024-12-01 07:49] LABS: Anisocytosis Moderate; Platelet Estimate Adequate; Tear Drop Cells FEW
[2024-12-01] MEDS: FOLIC ACID 1 MG TAB PO SCH (09:31)
--- NOTE | 2024-12-01 19:12 | DVHPNRES ---
Progress Note Date Seen: Dec 01, 2024 Resident Creating Document: KANNAN ARREDONDO RESIDENT Has the PT tested + for MRSA If YES, has PT been informed?: No Medical Necessity Reason Pt with a Central, PICC or Fol: No Subjective Review of Systems Patient seen and examined at bedside No new complaints No active symptoms, asymptomatic Continue monitor H&H Objective vital signs Vital Sign Date Time Temp Pulse Resp B/P (MAP) Pulse Ox O2 Delivery O2 Flow Rate FiO2 12/01/24 17:00 99.2 85 18 105/52 (69) 97 99.2 12/01/24 08:10 Room Air* 0 21 Total Intake and Output 11/30/24 11/30/24 12/01/24 15:00 23:00 07:00 Intake Total 50 ml 500 ml 450 ml Output Total 500 ml Balance 50 ml 500 ml -50 ml medications Current Medications Medications Dose Ordered Sig/Eugene Route Start Time Stop Time Status Last Admin Dose Admin Ondansetron HCl 4 mg Q4HP PRN IV 11/27/24 14:00 Docusate Sodium 100 mg BIDPRN PRN PO 11/27/24 14:00 Acetaminophen 650 mg Q6HP PRN PO 11/27/24 14:00 Nitroglycerin 0.4 mg Q5MINP PRN SL 11/27/24 14:00 Morphine Sulfate 2 mg Q30M PRN IV 11/27/24 14:00 Pantoprazole Sodium 40 mg DAILY IV 11/28/24 10:00 12/01/24 09:31 40 MG Enteral Nutritional Formula 240 ml TIDWM PO 11/28/24 12:00 12/01/24 18:25 240 ML Ceftriaxone Sodium 50 ml @ 100 mls/hr DAILY@09 IV 11/29/24 09:00 12/01/24 09:38 100 MLS/HR Folic Acid 1 mg DAILY PO 12/01/24 10:00 12/01/24 09:31 1 MG Examination General Appearance: Alert, Oriented X1-2 which is baseline according to her daughter, Cooperative, Not in acute distress HEENT: Atraumatic, Mucous membranes moist/pink, hard of hearing, conjunctival pallor Respiratory: Clear to auscultation, Normal air movement, No added sounds Cardiovascular: Regular rate, Normal S1, Normal S2, No murmurs Abdominal: Active bowel sounds, Soft, no distention, no tenderness Extremities: No edema, Normal pulses, No tenderness/swelling Skin: No Significant rash, except past surgical scars Neuro: Normal speech, generalized weakness laboratory and microbiology Laboratory Tests 12/01/24 05:23 Test 12/01/24 05:23 Range/Units Serum Glucose 90 74-106 mg/dL Microbiology Date/Time Source Procedure Growth Status 11/30/24 04:30 Voided Urine Urine Culture - Preliminary Resulted 11/28/24 11:50 Blood Blood Culture - Preliminary NO GROWTH AFTER 72 HOURS OF INCUBATION. Resulted Labs and/or images reviewed: Labs reviewed by me, Image(s) reviewed by me Problem List/Assessment/Plan Problem List/Assessment/Plan # Mechanical Fall without LOC # Fatigue & Generalized weakness likely from anemia # Acute on Chronic macrocytic anemia required blood transfusion # Folic acid deficiency - monitor H&H - CXR showed no acute changes -1 PRBC- s/p transfusion Hb is 10.1 but today 11/30 hemoglobin dropped to 8.5 then today stable at 8.5 continuously monitor, repeated transfusion if Hb falls less than 7 - Head CT not indicated due to did not hit head - bone marrow biopsy done on 11/30/2019 by IR, pending results - D/C IVF - folic acid supplement # severe protein malnutrition - dietary consult - ensure # Acute complicated UTI/ cystitis - evident on urinalysis - ordered urine bacterial culture - currently giving Rocephin # History of dementia # Glaucoma - on latanoprost Protonix No DVT PPX Diet as tolerated Case discussed with Dr. Chacon, patient and nurse Plan discussed with: Patient, Other (RN) Addendum Addendum Addendum I was physically present for the [place] portions of the service provided to patient by THE RESIDENT. I have reviewed the documentation, discussed the case with resident and agree with the resident's documentation except as noted. Also the patient's clinical case was discussed with the patient's nurse. This medical document was created using an electronic medical record system with computerized dictation system. Although this document has been carefully reviewed, there might still be some phonetic and typographical errors. These areas are purely typographical due to imperfections of the software programs, and do not reflect any compromise in the patient's medical care. Late signature. Date of Service: Dec 01, 2024 Billing Provider: ALRFEDO CHACON MD Common Visit Codes: [id number] INP/OBS CARE(HIGH) KANNAN ARREDONDO RESIDENT Dec 01, 2024 19:12 ALFREDO CHACON MD Dec 02, 2024 05:43
[2024-12-02 01:00] VITALS: BP 103/58; PULSE 77; RESP 15; TEMP 98; O2SAT 97
[2024-12-02 05:00] VITALS: BP 107/57; PULSE 69; RESP 16; TEMP 97.9; O2SAT 95
[2024-12-02 07:17] LABS: Neutrophils # (auto) 2.5 10 ^3/uL (1.6-8.6)
[2024-12-02 07:19] LABS: Basophils # (auto) 0 10 ^3/uL (0-0.2); Basophils % (auto) 0.8 % (0.0-2.0); Eosinophils # (auto) 0.2 10 ^3/uL (0-0.8); Eosinophils % (auto) 5.2 % (0.0-7.0); Hematocrit 23.5 % (36.0-46.0); Hemoglobin 7.6 g/dL (12.2-16.2); Lymphocytes # (auto) 1.3 10 ^3/uL (0.4-5.4); Lymphocytes % (auto) 29.1 % (10.0-50.0); Mean Corpuscular Hemoglobin 33.1 pg (28.0-32.0); Mean Corpuscular Hgb Conc. 32.4 g/dL (32.0-36.0); Mean Corpuscular Volume 102.1 fL (80.0-100.0); Monocytes # (auto) 0.5 10 ^3/uL (0-1.3); Monocytes % (auto) 11.5 % (0.0-12.0); Neutrophils % (auto) 53.4 % (37.0-80.0); Nucleated Red Blood Cells % 0.1 %; Platelet Count (auto) 331 10^3/uL (140-450); White Blood Cell 4.6 10^3/uL (4.4-10.8)
[2024-12-02 07:26] LABS: Red Cell Distribution Width 30.8 % (11.8-14.3)
[2024-12-02 07:43] LABS: Anisocytosis Moderate
[2024-12-02 07:44] LABS: Ovalocytes FEW; Tear Drop Cells FEW
[2024-12-02 07:45] LABS: Platelet Estimate Adequate
[2024-12-02 09:00] VITALS: BP 113/60; PULSE 75; RESP 14; TEMP 98.5; O2SAT 97
[2024-12-02] MEDS: MULTIPLE VITAMIN TAB PO ONE (12:17)
[2024-12-02 13:00] VITALS: BP 110/56; PULSE 74; RESP 16; TEMP 98.6; O2SAT 99
--- NOTE | 2024-12-02 14:39 | DVHPNRES ---
Progress Note Date Seen: Dec 02, 2024 Resident Creating Document: TENZIN CISNEROS RESIDENT Has the PT tested + for MRSA If YES, has PT been informed?: No Medical Necessity Reason Pt with a Central, PICC or Fol: No Subjective Review of Systems ANDREWSMEÑONubia a 84-year-old female with a PMH of dementia, chronic microcytic anemia presented to the ED with the chief complaints of mechanical fall without loss of consciousness. Patient is poor historian, history obtained from the daughter. Per daughter patient recently discharged 2 days back from this facility after being treated for diarrhea, after the discharge patient has been feeling weakness, tiredness which has been worsening and yesterday patient had mechanical fall without LOC and did not hit head Which prompted her to visit ED. on my assessment patient denies fever, nausea, vomiting, chills, abdominal pain, head injury, recent travel, sick contact other associated symptoms. PMH: Chronic microcytic anemia, dementia, bilateral hearing loss, glaucoma PSH: Hysterectomy Social history: Lives with daughter. Denies smoking, alcohol and other drug abuse Allergies: No known allergies Home medications: Latanoprost, dorzolamide timolol Patient seen and examined at the bedside. Reports generalized weakness. Hemoglobin downtrending. Follow up with repeat H&H. Heme oncology consulted. Bone marrow biopsy pending. PT eval requested Objective vital signs Vital Sign Date Time Temp Pulse Resp B/P (MAP) Pulse Ox O2 Delivery O2 Flow Rate FiO2 12/02/24 13:00 98.6 74 16 110/56 (74) 99 98.6 12/02/24 08:05 Room Air* 0 21 Total Intake and Output 12/01/24 12/01/24 12/02/24 15:00 23:00 07:00 Intake Total 100 ml 945 ml 600 ml Output Total 400 ml Balance 100 ml 945 ml 200 ml medications Current Medications Medications Dose Ordered Sig/Eugene Route Start Time Stop Time Status Last Admin Dose Admin Ondansetron HCl 4 mg Q4HP PRN IV 11/27/24 14:00 Docusate Sodium 100 mg BIDPRN PRN PO 11/27/24 14:00 Acetaminophen 650 mg Q6HP PRN PO 11/27/24 14:00 Nitroglycerin 0.4 mg Q5MINP PRN SL 11/27/24 14:00 Morphine Sulfate 2 mg Q30M PRN IV 11/27/24 14:00 Pantoprazole Sodium 40 mg DAILY IV 11/28/24 10:00 12/02/24 08:43 40 MG Enteral Nutritional Formula 240 ml TIDWM PO 11/28/24 12:00 12/02/24 12:15 240 ML Ceftriaxone Sodium 50 ml @ 100 mls/hr DAILY@09 IV 11/29/24 09:00 12/02/24 08:43 100 MLS/HR Folic Acid 1 mg DAILY PO 12/01/24 10:00 12/02/24 08:43 1 MG Multivitamins 1 tab DAILY PO 12/03/24 10:00 Examination Patient lying in bed, in no acute distress General: Thin-appearing, afebrile, palor, mucosae are moist Cardiovascular: Regular S1 and S2. No murmurs, gallops or rubs. No JVD elevation. No pedal edema Respiratory: Normal B/L air entry on room air. Clear lung sounds on auscultation Abdomen: Soft, nontender, nondistended, normoactive bowel sounds, no rebound tenderness, no organomegaly, no masses Genitourinary: Deferred MSK/skin: Mobilizes 4 limbs. Skin is dry and warm Neurological: No motor, no sensitive deficits, normal speech. Pupils are isocoric and reactive. Psych/Mental Status: A/Ox3 laboratory and microbiology Laboratory Tests 12/02/24 06:46 12/01/24 05:23 Test 12/01/24 05:23 Range/Units Serum Glucose 90 74-106 mg/dL Microbiology Date/Time Source Procedure Growth Status 11/30/24 04:30 Voided Urine Urine Culture - Preliminary Resulted 11/28/24 11:50 Blood Blood Culture - Preliminary NO GROWTH AFTER 72 HOURS OF INCUBATION. Resulted Labs and/or images reviewed: Labs reviewed by me, Image(s) reviewed by me Problem List/Assessment/Plan Problem List/Assessment/Plan # Mechanical Fall without LOC # utilized weakness secondary to acute anemia # Acute on Chronic macrocytic anemia requiring blood transfusion # Folic acid deficiency - monitor H&H - CXR showed no acute changes -1 PRBC- s/p transfusion - hemoglobin downtrending, repeat H&H pending - bone marrow biopsy done on 11/30/2019 by IR, pending results - D/C IVF - folic acid supplement - heme oncology consulted 12/02 - Retacrit 32216 units SC once administered 12/02 - methylmalonic acid levels ordered # severe protein malnutrition - dietary consult - ensure # Acute complicated UTI/ cystitis - evident on urinalysis - ordered urine bacterial culture - currently giving Rocephin # History of dementia # Glaucoma - on latanoprost PT eval Protonix No DVT PPX Diet as tolerated Case discussed with Dr. Celeste, patient and nurse Plan discussed with: Patient My Orders My Orders Orders - TENZIN CISNEROS Procedure Category Date Status Time Pt Request For Service PT 12/02/24 Logged 09:28 Methylmalonic Acid LAB 12/02/24 In Process 11:58 Epoetin Isiah-Epbx PHA 12/02/24 In Process (Retacrit) 21:00 Multiple Vitamin PHA 12/03/24 In Process Tablet (Mvi Tab) 10:00 * Hematology/Oncology CONS 12/02/24 Transmitted Consult 12:07 Hemoglobin & LAB 12/02/24 Verified Hematocrit 14:35 TENZIN CISNEROS Dec 02, 2024 14:39
[2024-12-02 15:47] LABS: Hemoglobin 8.1 g/dL (12.2-16.2)
[2024-12-02 15:49] LABS: Hematocrit 24.5 % (36.0-46.0)
[2024-12-02 16:51] VITALS: BP 100/55; PULSE 79; RESP 16; TEMP 98.9; O2SAT 96
[2024-12-02 21:00] VITALS: BP 117/50; PULSE 83; RESP 17; TEMP 98.3; O2SAT 96
[2024-12-02] MEDS: EPOETIN ALFA-EPBX 10,000 UNIT/1ML VIAL SC ONE (22:35)
[2024-12-03 05:00] VITALS: BP 101/53; PULSE 74; RESP 17; TEMP 97.6; O2SAT 96
[2024-12-03 07:40] LABS: Basophils # (auto) 0.1 10 ^3/uL (0-0.2); Basophils % (auto) 1.2 % (0.0-2.0); Eosinophils # (auto) 0.2 10 ^3/uL (0-0.8); Eosinophils % (auto) 4.4 % (0.0-7.0); Hematocrit 23.2 % (36.0-46.0); Hemoglobin 7.7 g/dL (12.2-16.2); Lymphocytes # (auto) 1.6 10 ^3/uL (0.4-5.4); Lymphocytes % (auto) 29.9 % (10.0-50.0); Mean Corpuscular Hemoglobin 32.9 pg (28.0-32.0); Mean Corpuscular Hgb Conc. 33.3 g/dL (32.0-36.0); Monocytes # (auto) 0.6 10 ^3/uL (0-1.3); Monocytes % (auto) 11.8 % (0.0-12.0); Neutrophils # (auto) 2.9 10 ^3/uL (1.6-8.6); Neutrophils % (auto) 52.7 % (37.0-80.0); Nucleated Red Blood Cells % 0.1 %; Platelet Count (auto) 389 10^3/uL (140-450); Red Blood Cells 2.34 10^6/uL (4.0-5.20); Red Cell Distribution Width 30.4 % (11.8-14.3); White Blood Cell 5.4 10^3/uL (4.4-10.8)
[2024-12-03 07:49] LABS: Anion Gap 7 (5-15); Carbon Dioxide 23 mmol/L (20-31); Potassium 4.3 mmol/L (3.5-5.1); Sodium 142 mmol/L (136-145)
[2024-12-03 07:50] LABS: Calcium 9.1 mg/dL (8.7-10.4)
[2024-12-03 07:54] LABS: Chloride 112 mmol/L (98-107)
[2024-12-03 07:55] LABS: BUN/Creatinine Ratio 43.5 (10.0-20.0); Blood Urea Nitrogen 20 mg/dL (9-23)
[2024-12-03 08:00] VITALS: PULSE 85; RESP 18; O2SAT 95
[2024-12-03 08:39] LABS: Glucose 87 mg/dL (74-106)
[2024-12-03 08:51] VITALS: BP 104/60; PULSE 85; RESP 20; TEMP 97.6; O2SAT 97
[2024-12-03] MEDS: MULTIPLE VITAMIN TAB PO SCH (09:40)
[2024-12-03 12:35] VITALS: BP 126/86; PULSE 87; RESP 19; TEMP 97.6; O2SAT 97
[2024-12-03 16:18] VITALS: BP 117/60; PULSE 85; RESP 18; TEMP 97.4; O2SAT 96
[2024-12-03] MEDS ORDERED: FOLITAB22 PO (16:31)
--- NOTE | 2024-12-03 16:33 | DVHDSRES ---
Discharge Summary Date of Admission Resident Creating Document: TENZIN CISNEROS RESIDENT November 27, 2024 at 13:59 Date of Discharge: Dec 03, 2024 Labs/Diagnostic Data: Laboratory Results Test 12/03/24 06:46 12/02/24 06:46 11/30/24 06:19 11/29/24 23:50 White Blood Count 5.4 10^3/uL (4.4-10.8) Red Blood Count 2.34 10^6/uL (4.0-5.20) Hemoglobin 7.7 g/dL (12.2-16.2) Hematocrit 23.2 % (36.0-46.0) Mean Corpuscular Volume 99.0 fL (80.0-100.0) Mean Corpuscular Hemoglobin 32.9 pg (28.0-32.0) Mean Corpuscular Hemoglobin Concent 33.3 g/dL (32.0-36.0) Red Cell Distribution Width 30.4 % (11.8-14.3) Platelet Count 389 10^3/uL (140-450) Mean Platelet Volume 8.4 fL (6.9-10.8) Neutrophils (%) (Auto) 52.7 % (37.0-80.0) Lymphocytes (%) (Auto) 29.9 % (10.0-50.0) Monocytes (%) (Auto) 11.8 % (0.0-12.0) Eosinophils (%) (Auto) 4.4 % (0.0-7.0) Basophils (%) (Auto) 1.2 % (0.0-2.0) Neutrophils # (Auto) 2.9 10 ^3/uL (1.6-8.6) Lymphocytes # (Auto) 1.6 10 ^3/uL (0.4-5.4) Monocytes # (Auto) 0.6 10 ^3/uL (0-1.3) Eosinophils # (Auto) 0.2 10 ^3/uL (0-0.8) Basophils # (Auto) 0.1 10 ^3/uL (0-0.2) Nucleated Red Blood Cells 0.1 % Sodium Level 142 mmol/L (136-145) Potassium Level 4.3 mmol/L (3.5-5.1) Chloride Level 112 mmol/L (98-107) Carbon Dioxide Level 23 mmol/L (20-31) Anion Gap 7 (5-15) Blood Urea Nitrogen 20 mg/dL (9-23) Creatinine 0.46 mg/dL (0.550-1.02) Glomerular Filtration Rate Calc 93 mL/min (>90) BUN/Creatinine Ratio 43.5 (10.0-20.0) Serum Glucose 87 mg/dL (74-106) Calcium Level 9.1 mg/dL (8.7-10.4) Platelet Estimate Adequate Poikilocytosis (manual) Slight Anisocytosis (manual) Moderate Tear Drop Cells Few Ovalocytes Few Magnesium Level 1.9 mg/dL (1.6-2.6) Total Bilirubin 0.9 mg/dL (0.2-1.0) Aspartate Amino Transferase (AST) 22 U/L (13-40) Alanine Aminotransferase (ALT) 22 U/L (7-40) Alkaline Phosphatase 72 U/L (46-116) Total Protein 5.6 g/dL (5.7-8.2) Albumin 3.5 g/dL (3.2-4.8) Stool Occult Blood Negative (Negative) Stool Occult Blood Sample #3 (Negative) Test 11/29/24 10:25 11/28/24 06:15 11/28/24 06:06 11/27/24 22:15 Hypochromasia (manual) Slight Macrocytosis Slight Influenza Type A Antigen Negative (Negative) Influenza Type B Antigen Negative (Negative) Reticulocyte Count (auto) 1.58 % (0.5-1.5) Urine Color Yellow (Yellow) Urine Clarity Clear (Clear) Urine pH 6.5 (5.0-9.0) Urine Specific [place] 1.015 (1.001-1.035) Urine Protein Negative (Negative) Urine Ketones Negative (Negative) Urine Blood Negative /uL (Negative) Urine Nitrite Negative (Negative) Urine Bilirubin Negative (Negative) Urine Urobilinogen Normal mg/dL (Negative) Urine Leukocyte Esterase 2+ /uL (Negative) Urine RBC 1 /hpf (0 - 4) Urine Microscopic WBC 16 /HPF (0-5) Urine Squamous Epithelial Cells Few /hpf (<5) Urine Bacteria None seen /hpf (None Seen) Urine Mucus Few (None Seen) Urine Glucose Normal mg/dL (Normal) Test 11/27/24 19:45 11/27/24 14:19 11/27/24 10:39 SARS-CoV-2 Antigen (Rapid) Negative (NEGATIVE) Lactic Acid Level 1.5 mmol/L (0.4-2.0) Ammonia < 10 umol/L (11-32) Prothrombin Time 11.7 sec (9.3-11.8) Prothrombin Time INR 1.12 (0.9-1.15) Activated Partial Thromboplast Time 27.5 SEC (24.5-34.5) Direct Bilirubin 0.5 mg/dL (<0.3) Troponin I High Sensitivity 5 ng/L (</=34) Other Laboratory Tests 12/03/24 06:46 Brief Hx & Hospital Course: Katina ANDREWS a 84-year-old female with a PMH of dementia, chronic macrocytic anemia presented to the ED with the chief complaints of mechanical fall without loss of consciousness. Patient is poor historian, history obtained from the daughter. Per daughter patient recently discharged 2 days back from this facility after being treated for diarrhea, after the discharge patient has been feeling weakness, tiredness which has been worsening and yesterday patient had mechanical fall without LOC and did not hit head Which prompted her to visit ED. on my assessment patient denies fever, nausea, vomiting, chills, abdominal pain, head injury, recent travel, sick contact other associated symptoms. During hospital stay, patient was diagnosed with a acute on chronic macrocytic anemia, hemoglobin downtrended to 6.9, patient required 1 RBC transfusion. Stool occult was negative, reticulocyte production index was abnormally low. At this point, radiologist was consulted for bone marrow biopsy which the patient underwent on 11/29. Bone marrow aspirate showed no evidence of acute leukemia, no clonal B-cell or atypical T-cell population detected. Phenotypic changes suggestive of myelodysplasia duration. Folic acid level was 5 and it was replenish. Vitamin B12 levels were WNL. One time Retacrit 06312 units SC was administered 12/02. Patient also had acute cystitis for which IV ceftriaxone was given. Patient's hemoglobin was monitored and it was consistently over 7, now trending down therefore she was discharged on 12/03 with a strong recommendations to follow up with: Follow up with fur tailor as outpatient within 7 days Follow up with PCP as outpatient within 7 days Continue folic acid supplementation Discharge planning was done with granddaughter over the phone for around 30 minutes, she was advised to bring back the patient to the ER in case of any acute symptoms including confusion, shortness for breath, generalized weakness or altered level of consciousness. Family agreed to discharge planning. Operations or Procedures ORDERING PHYSICIAN: TRUPTI MERCEDES RESIDENT PROCEDURE(s): PL2CT - PELVIS WO CONTRAST REASON: BONE MARROW BX ORDER NUMBER(s): [id number], ACCESSION NUMBER(s): [id number] CT PELVIS WO CONTRAST, HISTORY: BONE MARROW BX COMPARISON: None PROCEDURE: Informed consent and time-out was performed before the procedure. Conscious sedation was performed by the interventional radiology nurse. The pelvic bone was marked, sterilized, draped, and locally anesthetized using approximately 8 ml of 1% lidocaine. Axial CT images were used for localization. A 11 gauge Atmospheir Bone Biopsy kit was used to take 12 mL aspirate and 1 core. The biopsy needle was then removed. No immediate complications noted. FINDINGS: Axial CT images demonstrates biopsy needle within the right posterior pelvic bone. IMPRESSION: Successful CT-guided bone marrow aspiration biopsy of the right posterior pelvic bone. ATED BY: HARI SANCHES MD DICTATED DATE/TIME: 11/29/24930 SIGNED BY: HARI SANCHES MD SIGNED DATE/TIME: 11/29/24930 CC: INTERVENTIONAL RADIOLOGY [address] SCAN ROOM VIA HOSPITAL BED. PT IS ALERT AND ORIENTED. PT CONNECTED TO B/P AND O2 SAT MONITOR. NO DISTRESS NOTED. 0840 ULTRASOUND TECHNICIAN AT BEDSIDE ([facility] [place]) 0849 DR. Nataliya SANCHES AT BEDSIDE 0850 TIME-OUT PERFORMED 904 PROCEDURE STARTED. LIDOCAINE ADMINISTERED TO RIGHT POSTERIOR LOWER BACK REGION BY DR. Nataliya SANCHES. BIOPSY NEEDLE ADVANCED MULTIPLE TIMES VIA CT SCAN GUIDANCE. SAMPLES COLLECTED PLACED IN FORMULIN AND LAB TUBES. PT TOLERATED WELL. NO DISTRESS NOTED. 0915 PROCEDURE COMPLETE. SITE CLEANED AND BAND-AID APPLIED BY DR. Nataliya SANCHES. 0920 PT TOLERATED PROCEDURE WELL. NO DISTRESS NOTED. REPORT GIVEN TO VALDEMAR WARD. SAMPLE COLLECTED AND TAKEN TO LAB GIVEN TO SHAREE. FENTANYL 25MCG IV GIVEN PER DR. Nydia SANCHES VERSED 0.5MG IV GIVEN PER DR. Nydia SANCHES Condition at Discharge: Stable Final Diagnosis/Problems List # Mechanical Fall without LOC # Generalized weakness secondary to acute anemia # Acute on Chronic macrocytic anemia requiring blood transfusion s/p BM biopsy # Acute complicated UTI/ cystitis # Folic acid deficiency Discharge Disposition: Home Discharge Instruct/Medications Diet: See Comment Diet comment: Diet rich in green leafy vegetables Activity: Light activity Follow Up/Referral: Follow up with Hematology as outpatient within 7 days Follow up with primary care physician within 7 days Follow up with discharge clinic within 7 days Medications: Per EMR Discharge Statement: "Patient was advised to return to the ER or call 911 if any headaches, dizziness, shortness of breath, chest pain, abdominal pain, bleeding, fevers, or worsening of medical condition. Patient was counseled about treatment plan, medications, possible side effects, patientverbalized understanding. All questions were answered to the best of my ability. This discharge took greater then 30 minutes in planning, reviewing documentation, counseling the patient, and discussing with other team members." ASSESSMENT ASSESSMENT Assessment # Mechanical Fall without LOC # Generalized weakness secondary to acute anemia # Acute on Chronic macrocytic anemia requiring blood transfusion s/p BM biopsy # Acute complicated UTI/ cystitis # Folic acid deficiency Date of Service: Dec 03, 2024 Billing Provider: DARREL SARGENT MD Common Visit Codes: 11382-VIN/OBS DISCH DAY >30min TENZIN CISNEROS RESIDENT Dec 03, 2024 16:33 DARREL SARGENT MD Dec 04, 2024 08:58
== END 2024-12-03 18:50 | disposition home or self-care (01) | DRG 811 ==
LOC: EDBD 09:45 → ER 09:45 → OVERFLOW 13:59 → WEST WING 18:34
PROVIDERS: ADMIT Student in an Organized Health Care Education/Training Program; ATTEND Emergency Medicine
PROC: 30233N1 Transfusion of Nonautologous Red Blood Cells into Peripheral Vein, Percutaneous Approach (ICD-10-PCS; principal; 2024-11-28)
PROC: 079T3ZX Drainage of Bone Marrow, Percutaneous Approach, Diagnostic (ICD-10-PCS; 2024-11-29)
PROC: 07DT3ZX Extraction of Bone Marrow, Percutaneous Approach, Diagnostic (ICD-10-PCS; 2024-11-29)
PROC: 05HB33Z Insertion of Infusion Device into Right Basilic Vein, Percutaneous Approach (ICD-10-PCS; 2024-12-02)
PROC: B54NZZA Ultrasonography of Left Upper Extremity Veins, Guidance (ICD-10-PCS; 2024-12-02)
DX: D50.9 Iron deficiency anemia, unspecified (principal); E43 Unspecified severe protein-calorie malnutrition; N30.00 Acute cystitis without hematuria; F03.90 Unspecified dementia, unspecified severity, without behavioral disturbance, psychotic disturbance, mood disturbance, and anxiety; E53.8 Deficiency of other specified B group vitamins; Z20.822 Contact with and (suspected) exposure to COVID-19; Z79.899 Other long term (current) drug therapy; Z90.710 Acquired absence of both cervix and uterus; Z68.26 Body mass index [BMI] 26.0-26.9, adult
CPT/HCPCS: 10005; 36415; 36430; 71045; 72192; 77012; 80048; 80053; 80076; 81001; 82140; 82270; 83605; 83735; 84484; 85014; 85018; 85025; 85045; 85610; 85730; 86850; 86900; 86901; 86920; 87040; 87086; 87426; 87804; 93005; 97110; 97116; 97163; 97530; G0378; J2003; J2250; J2470; J7060

== ENCOUNTER 2025-01-05 21:17 | Inpatient (IN) | payer MEDICARE, MEDICAID ==
[~2025-01-05] VITALS: Ht 152.4 cm; Wt 46.0 kg
[~2025-01-05 21:17] MED LIST changes: +FOLITAB22 PO
--- NOTE | 2025-01-05 21:43 | ED.PDOC ---
Altered Mental Status HPI Comments 84 y.o female with PMH of dementia, chronic macrocytic anemia presented to the ED via EMS for an evaluation of altered mental status. EMS reports patient noticed patient had increased confusion today and state when she gets like this, it indicates her HGB is low. Patient was seen at [facility] 2 weeks ago for same complaint and was transfused blood. Patient is very hard of hearing. No other complaints reported. Vital signs were stable on arrival. Time Seen by MD: 21:36 Primary Care Provider: UNKNOWN Reviewed Notes: Nurses Notes, Hydraulics Teacher Notes, Medications, Allergies Allergies: Coded Allergies: NO KNOWN ALLERGIES (Unverified , 04/29/11) Home Meds Active Scripts Folic Rdvb-Ctmcfobnpz-Grbvrgev (Folbic) Tab, 1 TAB PO DAILY for 30 Days, #90 TAB 0 Refills Prov:TENZIN CISNEROS RESIDENT 12/03/24 Megestrol Acetate (Appetite) (Megestrol Acetate) 625 Mg/5 Ml Janette, 625 MG PO DAILY for 10 Days, #50 ML 0 Refills Prov:BETH FERNANDEZ RESIDENT 11/25/24 Latanoprost (LATANOPROST) 0.005 % Roya, 1 DROP EACHEYE HS for 28 Days, #2.5 ML Prov:BETH FERNANDEZ RESIDENT 11/25/24 Reported Medications Dorzolamide Hydrochloride (Dorzolamide HCl) 2 % Roya, 1 % EACHEYE, ML 11/20/24 Information Source: Patient, Emergency Med Personnel Mode of Arrival: EMS Severity: Moderate Timing: Hours Duration: Since onset Prehospital treatment: Tool Repairer Quality: Decreased Alertness Recent: None History of: Dementia Associated Signs and Symptoms: None Past Medical History PAST MEDICAL HISTORY: Anemia, Dementia Surgical History: Hysterectomy [employer]ING [employer]IPMENT MECH[employer]IC History: Denies all [employer]ING [employer]MENT MECH[employer]IC Hx Family History Family History: Reviewed,noncontributory to illness Social History Smoker: Non-Smoker Alcohol: Denies ETOH Use Drugs: Denies Drug Use Lives In: Home Constitutional: reports: fatigue, weakness; denies: chills, diaphoresis, fever, malaise, sweats, others EENTM: denies: blurred vision, double vision, ear bleeding, ear discharge, ear drainage, ear pain, ear ringing, eye pain, eye redness, hearing loss, mouth pain, mouth swelling, nasal discharge, nose bleeding, nose congestion, nose pain, photophobia, tearing, throat pain, throat swelling, voice changes, others Respiratory: denies: cough, hemoptysis, orthopnea, SOB at rest, shortness of breath, SOB with excertion, stridor, wheezing, others Cardiovascular: denies: chest pain, dizzy spells, diaphoresis, Dyspnea on exertion, edema, irregular heart beat, left arm pain, lightheadedness, palpitations, PND, syncope, others Gastrointestinal: denies: abdomen distended, abdominal pain, blood streaked bowels, constipated, diarrhea, dysphagia, difficulty swallowing, hematemesis, melena, nausea, poor appetite, poor fluid intake, rectal bleeding, rectal pain, vomiting, others Genitourinary: denies: abnormal vagina bleeding, burning, dyspareunia, dysuria, flank pain, frequency, hematuria, incontinence, pain, , vagina discharge, urgency, others Neurological: denies: dizziness, fainting, headache, left sided numbness, left sided weakness, numbness, paresthesia, pre-existing deficit, right sided numbness, right sided weakness, seizure, speech problems, tingling, tremors, weakness, others Musculoskeletal: denies: back pain, gout, joint pain, joint swelling, muscle pain, muscle stiffness, neck pain, others Integumetry: denies: bruises, change in color, change in hair/nails, dryness, laceration, lesions, lumps, rash, wounds, others Allergic/Immunocompromised: denies: Difficulty Healing, Frequent Infections, Hives, Itching, others Hematologic/Lymphatic: denies: anemia, blood clots, easy bleeding, easy bruising, swollen glands, others Endocrine: denies: excessive hunger, excessive sweating, excessive thirst, excessive urination, flushing, intolerance to cold, intolerance to heat, unexplained weight gain, unexplained weight loss, others Psychiatric: denies: anxiety, bipolar disorder, depression, hopeless, panic disorder, schizophrenia, sleepless, suicidal, others Unable to Obtain due to: Dementia Physical Exam General Appearance: Mild Distress (Patient appears pale and appears to be in poor overall health.), Normal HEENT: Normal ENT Inspection, Pharynx Normal, TMs Normal Neck: Full Range of Motion, Non-Tender, Normal, Normal Inspection Respiratory: Chest Non-Tender, Lungs Clear, No Accessory Muscle Use, No Respiratory Distress, Normal Breath Sounds Cardiovascular: No Edema, No JVD, No Murmur, No Gallop, Normal Peripheral Pulses, Regular Rate/Rhythm Breast Exam: Deferred Gastrointestinal: No Organomegaly, Non Tender, No Pulsatile Mass, Normal Bowel Sounds, Soft Genitalia: Deferred Pelvic: Deferred Rectal: Deferred Extremities: Normal capillary refill, No pedal edema Neurologic: Disoriented Cerebellar Function: NOT DONE Reflexes: NOT DONE Skin: Dry, Normal Color, Warm Lymphatic: No Adenopathy Was a procedure done? Was a procedure done?: No Differential Diagnosis (ALOC) Differential Diagnosis: Dehydration, Hypoxemia, Heart Failure, Other (Anemia, sepsis, electrolyte abnormality, kidney failure) Other Differential Diagnosis Anemia X-Ray, Labs, Meds, VS Vital Signs Date Time Temp Pulse Resp B/P (MAP) Pulse Ox O2 Delivery O2 Flow Rate FiO2 01/05/25 21:20 98.1 92 18 132/78 (96) 98 98.1 Lab Test 01/05/25 23:03 01/05/25 21:47 Range/Units Troponin I High Sensitivity 4 3 L </=34 ng/L White Blood Count 5.5 4.4-10.8 10^3/uL Red Blood Count 2.15 L 4.0-5.20 10^6/uL Hemoglobin 7.5 L 12.2-16.2 g/dL Hematocrit 22.6 L 36.0-46.0 % Mean Corpuscular Volume 104.9 H 80.0-100.0 fL Mean Corpuscular Hemoglobin 34.8 H 28.0-32.0 pg Mean Corpuscular Hemoglobin Concent 33.2 32.0-36.0 g/dL Red Cell Distribution Width 30.3 H 11.8-14.3 % Platelet Count 363 140-450 10^3/uL Mean Platelet Volume 7.9 6.9-10.8 fL Neutrophils (%) (Auto) 53.9 37.0-80.0 % Lymphocytes (%) (Auto) 30.3 10.0-50.0 % Monocytes (%) (Auto) 11.9 0.0-12.0 % Eosinophils (%) (Auto) 2.7 0.0-7.0 % Basophils (%) (Auto) 1.2 0.0-2.0 % Neutrophils # (Auto) 3.0 1.6-8.6 10 ^3/uL Lymphocytes # (Auto) 1.7 0.4-5.4 10 ^3/uL Monocytes # (Auto) 0.7 0-1.3 10 ^3/uL Eosinophils # (Auto) 0.1 0-0.8 10 ^3/uL Basophils # (Auto) 0.1 0-0.2 10 ^3/uL Nucleated Red Blood Cells 0.1 % Sodium Level 144 136-145 mmol/L Potassium Level 4.0 3.5-5.1 mmol/L Chloride Level 112 H 98-107 mmol/L Carbon Dioxide Level 24 20-31 mmol/L Anion Gap 8 5-15 Blood Urea Nitrogen 15 9-23 mg/dL Creatinine 0.53 L 0.550-1.02 mg/dL Glomerular Filtration Rate Calc 90 >90 mL/min BUN/Creatinine Ratio 28.3 H 10.0-20.0 Serum Glucose 114 H 74-106 mg/dL Lactic Acid Level 1.3 0.4-2.0 mmol/L Calcium Level 8.6 L 8.7-10.4 mg/dL Total Bilirubin 1.1 H 0.2-1.0 mg/dL Aspartate Amino Transferase (AST) 26 13-40 U/L Alanine Aminotransferase (ALT) 27 7-40 U/L Alkaline Phosphatase 81 46-116 U/L B-Type Natriuretic Peptide 231.76 0-100 pg/mL Total Protein 6.4 5.7-8.2 g/dL Albumin 4.1 3.2-4.8 g/dL Lipase 33 12-53 U/L Current Medications Medications (Trade) Dose Ordered Sig/Eugene Route Start Time Stop Time Status Last Admin Sodium Chloride 1,000 ml @ 125 mls/hr Q8H ONCE IV 01/05/25 21:45 01/06/25 05:44 01/06/25 00:36 X-Ray, Labs, Meds, VS Comment All studies performed in the ED were evaluated by me personally. EKG revealed a sinus rhythm with a rate of 89. Low voltage in precordial leads as noted. TN interval 130 and QT interval of 355. Laboratories showed a critical anemic concern as well as what appears to be in any acute CHF exacerbation. Patient will receive 2 units of packed red blood cells in the ED in be admitted for evaluation of anemic source. Additionally, patient will receive some Lasix to address her fluid overload. Time of 1ST Reevaluation: 00:55 Reevaluation 1ST: Improved Consultation: PCP, GI Patient Education/Counseling: Diagnosis, Treatment, Other (Pt had hx of demtenia ) Family Education/Counseling: Diagnosis, Treatment, No Family Present SEPSIS Sepsis Screen Recent Procedure: No On Antibiotic Therapy: No Respiratory Rate >20: No Heart Rate >90: No Temp<36 C (96.8 F) or >38.3 C: No SBP <90 or MAP <65 mmHG: No New Acute Mental Status Change: No Is the patient on CPAP, BIPAP,: No Physician Orders Sodium Chloride 0.9% (01/05/25 21:45) Heplock Iv (01/05/25 ) Urinalysis (01/05/25 21:38) Straightcath If Unable To Void (01/05/25 21:38) Electrocardigram (01/05/25 21:38) Continuous Ekg Monitoring 08,12,16,20,00,04 (01/05/25 21:38) Obtain Consent For: (01/06/25 00:32) Packedcell-Noactive Bleeding (01/06/25 00:32) Type And Screen (01/06/25 00:32) Obtain Consent For Anesthesia (01/06/25 00:32) Vital Signs Date Time Temp Pulse Resp B/P (MAP) Pulse Ox O2 Delivery O2 Flow Rate FiO2 01/05/25 21:20 98.1 92 18 132/78 (96) 98 98.1 Laboratory Tests Test 01/05/25 21:47 Lactic Acid Level 1.3 mmol/L (0.4-2.0) White Blood Count 5.5 10^3/uL (4.4-10.8) Medications Medications Dose Ordered Sig/Eugene Route Start Time Stop Time Status Last Admin Dose Admin Sodium Chloride 1,000 ml @ 125 mls/hr Q8H ONCE IV 01/05/25 21:45 01/06/25 05:44 01/06/25 00:36 Departure 1 Departure Time of Disposition: 00:56 Impression: Primary Impression: Anemia Additional Impression: Acute exacerbation of CHF (congestive heart failure) Disposition: ADMITTED INPATIENT Condition: Fair Discharged With: Self Critical Care Note Critical Care Time?: No Stability Stability form required: No I personally scribed for JOÃO CHAVIRA PAC ([email or web address]) on 01/05/25 at 21:43. Electronically submitted by Libia Calhoun ([facility]). JOÃO CHAVIRA PAC Jan 05, 2025 21:43
[2025-01-05 22:10] LABS: Hematocrit 22.6 % (36.0-46.0); Hemoglobin 7.5 g/dL (12.2-16.2); Mean Corpuscular Hemoglobin 34.8 pg (28.0-32.0); Nucleated Red Blood Cells % 0.1 %
[2025-01-05 22:12] LABS: Mean Corpuscular Volume 104.9 fL (80.0-100.0)
[2025-01-05 22:27] LABS: Alanine Aminotransferase 27 U/L (7-40); Albumin 4.1 g/dL (3.2-4.8); Alkaline Phosphatase 81 U/L (46-116); Anion Gap 8 (5-15); BUN/Creatinine Ratio 28.3 (10.0-20.0); Blood Urea Nitrogen 15 mg/dL (9-23); Carbon Dioxide 24 mmol/L (20-31); Lipase 33 U/L (12-53); Potassium 4.0 mmol/L (3.5-5.1); Sodium 144 mmol/L (136-145); Total Protein 6.4 g/dL (5.7-8.2)
[2025-01-05 22:28] LABS: Bilirubin, Total 1.1 mg/dL (0.2-1.0)
[2025-01-05 22:32] LABS: Calcium 8.6 mg/dL (8.7-10.4); Chloride 112 mmol/L (98-107); Glucose 114 mg/dL (74-106)
[2025-01-05 23:15] VITALS: PULSE 91; RESP 18; O2SAT 98
[2025-01-06] VITALS (13 sets, daily range): BP systolic 111–131; BP diastolic 45–70; PULSE 75–100; RESP 14–19; TEMP 97.3–100.6; O2SAT 96–98
[2025-01-06] MEDS: SODIUM CHLORIDE 0.9% 1,000 ML IV ONE (00:36)
--- NOTE | 2025-01-06 02:49 | DVHHP2 ---
History of Present Illness History of Present Illness Patient is 84 years old female with a past medical history of microcytic anemia, dementia was brought in by EMS due to AMS. Patient is a poor historian and hard of hearing. Information was gathered from talking to the patient and chart reviewing. Patient was brought in by EMS due to altered mental status. As per family patient has been feeling more tired and fatigued. patient has a history of blood transfusion and when her hemoglobin dropped down she gets more weak and mental status worsens. Initial lab workup revealed hemoglobin 7.5, MCV 104.9, BNP 231, troponin I with a normal limit, serum bilirubin 1.1, blood sugar 114. Patient was admitted at [facility] in last week of October and had blood transfusion. Patient had a colonoscopy in 2010 with revealed colonic polyp and colonic stricture. Patient had a bone marrow biopsy done on 11/29/2024 at [facility]. Past Medical History Microcytic anemia, dementia Past Surgical History Hysterectomy Past Social History Details could not be found due to patient's mental status Review of Systems Review of Systems Review of other system could not be done due to patient's altered mental status Allergies: Coded Allergies: NO KNOWN ALLERGIES (Unverified , 04/29/11) Medications Current Medications Medications Dose Ordered Sig/Eugene Route Start Time Stop Time Status Last Admin Dose Admin Sodium Chloride 10 ml Q8HR IV 01/06/25 06:00 UNV Dorzolamide HCl 1 drop BID EACHEYE 01/06/25 10:00 UNV Latanoprost 1 drop HS EACHEYE 01/06/25 22:00 UNV Patient Own Medication 1 tab DAILY PO 01/06/25 10:00 UNV Exam Vital Signs Vital Signs Date Time Temp Pulse Resp B/P (MAP) Pulse Ox O2 Delivery O2 Flow Rate FiO2 01/06/25 01:00 98.4 85 18 111/50 (70) 95 98.4 01/05/25 23:15 Room Air* 0 21 Exam General examination- patient hard of hearing, no acute distress HEENT- PEERLA, no acute nasal discharge Cardiovascular- S1-S2 audible, rate and rhythm regular, no murmur Respiratory- CTAB, no wheeze or rhonchi Gastrointestinal-nontender, bowel sound+. Nondistended Digital rectal examination was done in presence of SYLVIA Alvarez- external hemorrhoids, no internal hemorrhoids or mass noted Musculoskeletal-no acute joint swelling or tenderness or redness Lower extremity- no leg edema Neurological- muscular atrophy+ Skin- no acute rash or purpura Labs/Xrays Labs Test 01/06/25 02:05 01/05/25 23:03 01/05/25 21:47 Range/Units Troponin I High Sensitivity 4 </=34 ng/L White Blood Count 5.5 4.4-10.8 10^3/uL Red Blood Count 2.15 L 4.0-5.20 10^6/uL Hemoglobin 7.5 L 12.2-16.2 g/dL Hematocrit 22.6 L 36.0-46.0 % Mean Corpuscular Volume 104.9 H 80.0-100.0 fL Mean Corpuscular Hemoglobin 34.8 H 28.0-32.0 pg Mean Corpuscular Hemoglobin Concent 33.2 32.0-36.0 g/dL Red Cell Distribution Width 30.3 H 11.8-14.3 % Platelet Count 363 140-450 10^3/uL Mean Platelet Volume 7.9 6.9-10.8 fL Neutrophils (%) (Auto) 53.9 37.0-80.0 % Lymphocytes (%) (Auto) 30.3 10.0-50.0 % Monocytes (%) (Auto) 11.9 0.0-12.0 % Eosinophils (%) (Auto) 2.7 0.0-7.0 % Basophils (%) (Auto) 1.2 0.0-2.0 % Neutrophils # (Auto) 3.0 1.6-8.6 10 ^3/uL Lymphocytes # (Auto) 1.7 0.4-5.4 10 ^3/uL Monocytes # (Auto) 0.7 0-1.3 10 ^3/uL Eosinophils # (Auto) 0.1 0-0.8 10 ^3/uL Basophils # (Auto) 0.1 0-0.2 10 ^3/uL Nucleated Red Blood Cells 0.1 % Sodium Level 144 136-145 mmol/L Potassium Level 4.0 3.5-5.1 mmol/L Chloride Level 112 H 98-107 mmol/L Carbon Dioxide Level 24 20-31 mmol/L Anion Gap 8 5-15 Blood Urea Nitrogen 15 9-23 mg/dL Creatinine 0.53 L 0.550-1.02 mg/dL Glomerular Filtration Rate Calc 90 >90 mL/min BUN/Creatinine Ratio 28.3 H 10.0-20.0 Serum Glucose 114 H 74-106 mg/dL Lactic Acid Level 1.3 0.4-2.0 mmol/L Calcium Level 8.6 L 8.7-10.4 mg/dL Total Bilirubin 1.1 H 0.2-1.0 mg/dL Aspartate Amino Transferase (AST) 26 13-40 U/L Alanine Aminotransferase (ALT) 27 7-40 U/L Alkaline Phosphatase 81 46-116 U/L B-Type Natriuretic Peptide 231.76 0-100 pg/mL Total Protein 6.4 5.7-8.2 g/dL Albumin 4.1 3.2-4.8 g/dL Lipase 33 12-53 U/L Assessment/Plan Assessment/Plan Assessment and plan # metabolic encephalopathy likely due to severe anemia/ rule out pneumonia/UTI -hemoglobin 7.5, BNP 231 -ordered for blood transfusion in place -repeat CBC -order stool for occult blood test -pending TSH, ammonia # Severe anemia --hemoglobin 7.5 -ordered for blood transfusion in place -repeat CBC after blood transfusion -order stool for occult blood test -Monitor CBC # microcytic anemia -monitor CBC -continue vitamin supplement as prescribed # acute complicated cystitis - urinalysis revealed leukocyte esterase 1+, WBC 14 -pending urine culture -ordered ceftriaxone 1 g IV daily # dementia -monitor mental status # protein calorie malnutrition -ordered dietary consult Patient's daughter [phone] wished patient to be full code Goals of care, Code status full code ; discussed with >15 minutes PUD prophylaxis: Pantoprazole DVT prophylaxis: SCD Plan discussed with Dr. Flanagan , nursing staff, Total time spent on patient evaluation, chart review, assessment and plan, discussion discussion >35 minutes Plan discussed with: Patient, Other (RN) My Orders Orders - CLARENCE SMITH RESIDENT Procedure Category Date Status Time Admit ADMIT 01/06/25 Transmitted 02:07 Sodium Chloride Lock PHA 01/06/25 Logged (Saline Lock Ns) 06:00 Notify Of Changes YAMILEX 01/06/25 In Process From Base 02:07 Newspaper Photographer For YAMILEX 01/06/25 In Process 24 Hours 02:07 Thyroid Stimulating LAB 01/06/25 In Process Hormone 02:44 Magnesium LAB 01/06/25 In Process 02:44 Ammonia LAB 01/06/25 Logged 02:44 Stool Occult Blood LAB 01/06/25 Logged 02:44 Dorzolamide 2% PHA 01/06/25 Logged Opthalmic (Trusopt 2% 10:00 Latanoprost (Xalatan) PHA 01/06/25 Logged 22:00 (Nf) Folic PHA 01/06/25 Logged [id number] 10:00 Date of Service: Jan 06, 2025 Billing Provider: CHAYITO FLANAGAN MD Common Visit Codes: [id number] INP/OBS CARE (HIGH) Secondary Visit Codes: [id number] CARE PLAN 30 MINUTES CLARENCE SMITH RESIDENT Jan 06, 2025 02:49
[2025-01-06 02:57] LABS: Urine Protein, UAD Negative (Negative)
[2025-01-06] MEDS: SODIUM CHLOR 0.9% PF (SALINE LOCK) 10ML VIAL/SYR IV SCH (05:24)
[2025-01-06] MEDS: cefTRIAXone 1GM/50ML D5W 50 ML IV ONE (05:52)
[2025-01-06] MEDS: FUROSEMIDE 40 MG/4 ML VIAL IV ONE (06:58)
--- NOTE | 2025-01-06 08:42 | DVH ---
EXAM: XY CHEST XRAY 1 VIEW Indication: pain; pna Technique: Single frontal view of the chest was obtained Comparison: XY CHEST PORTABLE on DOS: 11/27/24, XY CHEST XRAY 1 VIEW on DOS: 11/18/24, CHEST PORTABLE o n DOS: 04/29/22, CXRP on DOS: 04/29/22, EKG on DOS: 04/29/22 FINDINGS: Lines and Tubes: None Lungs:Interstitial opacities. Pleura: No effusion. No pneumothorax. Cardiomediastinal contours: Unremarkable. Atherosclerotic vascular calcifications of the thoracic ao rta are noted. Bones: No acute osseous abnormality. IMPRESSION: Interstitial opacities .
[2025-01-06 09:26] LABS: Hematocrit 31.2 % (36.0-46.0); Hemoglobin 10.3 g/dL (12.2-16.2); Mean Corpuscular Hemoglobin 33.0 pg (28.0-32.0); Mean Corpuscular Volume 99.4 fL (80.0-100.0); Nucleated Red Blood Cells % 0.2 %
[2025-01-06] MEDS: Folic Acid-Pyridoxine-Cyancoba (Folbic) PO SCH (10:00)
[2025-01-06] MEDS: cefTRIAXone 1GM/50ML D5W 50 ML IV SCH (10:03)
[2025-01-06] MEDS: DORZOLAMIDE HCL 2% OPTH(EYE) SOL 10ML EACHEYE SCH (10:04)
[2025-01-06 10:14] LABS: Anisocytosis Marked
[2025-01-06 10:15] LABS: Ovalocytes FEW
--- NOTE | 2025-01-06 16:58 | DVHPNRES ---
Progress Note Date Seen: Jan 06, 2025 Resident Creating Document: BRYAN FORD RESIDENT Has the PT tested + for MRSA If YES, has PT been informed?: No Medical Necessity Reason Pt with a Central, PICC or Fol: No Subjective Review of Systems Patient is an 84-year-old female with prior medical history of chronic macrocytic anemia with multiple transfusions and dementia, who was brought to the ED via EMS due to altered mental status. Per her daughter, Amita, the patient began to complain of fatigue and tiredness 2 days prior. Symptoms progressed to shortness of breath and chest pain for which she was brought to seek medical care. Daughter states that patient was discharged from this institution on 12/03/2024, during her inpatient stay shr was given transfusions and a bone marrow biopsy was taken. On evaluation in the ED patient was found to be pale and in mild distress. Labs show hemoglobin of 7.5, MCV 104.9, MCH 34.8, RDW 30.3, and UA significant for leuko esterase 1+ and WBCs 14. She was admitted for symptomatic anemia to be treated with blood transfusion and further monitoring. Patient seen at bedside. Patient is oriented in person, not time and place. She states she feels better. Per daughter, is better but not at baseline. Daughter states that she does not have a copy of the bone marrow biopsy results however she was told that they were negative, however the patient never followed up with Heme-Onc. She received 1 PRBC today, post transfusion labs show hemoglobin of 10.3. Second transfusion was subsequently canceled. Patient was started on ceftriaxone for her urinary tract infection. Diet was advanced to soft diet today, will continue to advance depending on tolerance. Review of systems: Unable to evaluate due to patient's underlying dementia. Objective vital signs Vital Sign Date Time Temp Pulse Resp B/P (MAP) Pulse Ox O2 Delivery O2 Flow Rate FiO2 01/06/25 13:00 99.3 86 16 111/49 (69) 98 99.3 01/06/25 07:45 Room Air* 0 21 Total Intake and Output 01/05/25 01/05/25 01/06/25 15:00 23:00 07:00 Intake Total 0 ml Output Total 100 ml Balance -100 ml medications Current Medications Medications Dose Ordered Sig/Eugene Route Start Time Stop Time Status Last Admin Dose Admin Sodium Chloride 10 ml Q8HR IV 01/06/25 06:00 7/7/25 14:00 10 ML Dorzolamide HCl 1 drop BID EACHEYE 01/06/25 10:00 01/06/25 10:04 1 DROP Latanoprost 1 drop HS EACHEYE 01/06/25 22:00 Patient Own Medication 1 tab DAILY PO 01/06/25 10:00 Ceftriaxone Sodium 50 ml @ 100 mls/hr DAILY@09 IV 01/06/25 09:00 01/06/25 10:03 100 MLS/HR Examination General: The patient alert and oriented in person place and time. Patient following commands HEENT: Normocephalic, atraumatic, no palor to mucosas, moist mucous membrane Respiratory/pulmonary: Clear lungs bilaterally, vesicular murmurs present in almost all lung galeas, no associated crackles or wheezes. Abdomen: Abdomen nondistended, there is no pain to palpation in any of the abdominal quadrants, no palpable masses. Extremities: there is no peripheral edema present at the lower extremities. Peripheral pulses 3+ radial right, 3+ radials soft. 3+ dorsalis pedis right. 3+ dorsalis pedis left Skin: No rashes or pruritus Neurological: Intact cranial nerves with no focal neurologic deficits laboratory and microbiology Laboratory Tests 01/06/25 09:04 01/05/25 21:47 Test 01/05/25 21:47 Range/Units Serum Glucose 114 H 74-106 mg/dL Problem List/Assessment/Plan Problem List/Assessment/Plan Acute metabolic encephalopathy, possibly due to severe anemia Symptomatic chronic macrocytic anemia, Hb 7.5, MCV 104.9, MCH 34.8, RDW 30.3 -1 PRBC tranfusion --Post transfusion HB: 10.3 -Stool occult blood test pending -Bone Marrow Aspirate from 12/02/2024: Phenotypic changes suggestive of myeloid dysmaturation -Pending HIV, viral panel, B-12, folate Possible cystitis -UA: Urine Leukocyte esterase 1+, WBC 14 -Urine culture pending -Ceftriaxone IV 1 g daily Dementia -Monitor mental status Protein Calorie Malnutrition -Followed by bufferer DVT prophylaxis: SCD GI prophylaxis: Not indicated Case discussed with Dr. Barkley Case discussed with her daughter, Amita, for 15 minutes. FULL CODE. Plan discussed with: Daughter My Orders My Orders Orders - BRYAN FORD RESIDENT Procedure Category Date Status Time Mechanical Soft Diet DIET 01/06/25 Transmitted Lunch Dietary Evaluation Review Comments: Explore serum iron profile for consideration of possible iron supplementation. Encourage and monitor PO intake to meet at least 75% of her needs Expected Outcomes/Goals: Improved nutrition status Date of Service: Jan 06, 2025 Billing Provider: DANIELLE BARKLEY MD Common Visit Codes: [id number] INP/OBS CARE(HIGH) BRYAN FORD RESIDENT Jan 06, 2025 16:58 DANIELLE BARKLEY MD Jan 07, 2025 20:24
[2025-01-06] MEDS: LATANOPROST 0.005 % OPTH(EYE) SOL 2.5ML EACHEYE SCH (22:29)
[2025-01-07 01:00] VITALS: BP 131/75; PULSE 85; RESP 14; TEMP 97.9; O2SAT 98
[2025-01-07 05:00] VITALS: BP 105/56; PULSE 89; RESP 14; TEMP 98.3; O2SAT 93
[2025-01-07 08:00] VITALS: PULSE 81; PULSE 86; RESP 16
[2025-01-07 08:19] LABS: Hematocrit 28.8 % (36.0-46.0); Hemoglobin 9.7 g/dL (12.2-16.2); Mean Corpuscular Hemoglobin 33.0 pg (28.0-32.0); Mean Corpuscular Volume 98.3 fL (80.0-100.0); Nucleated Red Blood Cells % 0.0 %
--- NOTE | 2025-01-07 14:07 | DVHPNRES ---
Progress Note Date Seen: Jan 07, 2025 Resident Creating Document: BRYAN FORD RESIDENT Has the PT tested + for MRSA If YES, has PT been informed?: No Medical Necessity Reason Pt with a Central, PICC or Fol: No Subjective Review of Systems Patient is an 84-year-old female with prior medical history of chronic macrocytic anemia with multiple transfusions and dementia, who was brought to the ED via EMS due to altered mental status. Per her daughter, Amita, the patient began to complain of fatigue and tiredness 2 days prior. Symptoms progressed to shortness of breath and chest pain for which she was brought to seek medical care. Daughter states that patient was discharged from this institution on 12/03/2024, during her inpatient stay shr was given transfusions and a bone marrow biopsy was taken. On evaluation in the ED patient was found to be pale and in mild distress. Labs show hemoglobin of 7.5, MCV 104.9, MCH 34.8, RDW 30.3, and UA significant for leuko esterase 1+ and WBCs 14. She was admitted for symptomatic anemia to be treated with blood transfusion and further monitoring. Patient seen at bedside. Patient is more alert and stating that she feels well. At the time of evaluation she was ambulating with a walker the help of physical therapist at bedside. Per nurse, she is eating well, sleeping well, and having bowel movements. Most recent labs show hemoglobin of 9.7, vitamin B12 of 577, folic acid 20.88, and negative HIV panel. She is currently on IV ceftriaxone for possible cystitis. Patient is considered stable to downgrade from telemetry to med surg with possible discharge tomorrow. Review of systems: Unable to evaluate due to patient's baseline dementia. Objective vital signs Vital Sign Date Time Temp Pulse Resp B/P (MAP) Pulse Ox O2 Delivery O2 Flow Rate FiO2 01/07/25 08:00 86 16 Room Air* 0 21 01/07/25 05:00 98.3 105/56 (72) 93 98.3 Total Intake and Output 01/06/25 01/06/25 01/07/25 15:00 23:00 07:00 Intake Total 650 ml 380 ml 400 ml Balance 650 ml 380 ml 400 ml medications Current Medications Medications Dose Ordered Sig/Eugene Route Start Time Stop Time Status Last Admin Dose Admin Sodium Chloride 10 ml Q8HR IV 01/06/25 06:00 01/07/25 10:15 10 ML Dorzolamide HCl 1 drop BID EACHEYE 01/06/25 10:00 01/07/25 10:13 1 DROP Latanoprost 1 drop HS EACHEYE 01/06/25 22:00 01/06/25 22:29 1 DROP Patient Own Medication 1 tab DAILY PO 01/06/25 10:00 Ceftriaxone Sodium 50 ml @ 100 mls/hr DAILY@09 IV 01/06/25 09:00 01/07/25 10:13 100 MLS/HR Examination General: The patient alert and oriented in person place and time. Patient following commands HEENT: Normocephalic, atraumatic, no palor to mucosas, moist mucous membrane Respiratory/pulmonary: Clear lungs bilaterally, vesicular murmurs present in almost all lung galeas, no associated crackles or wheezes. Abdomen: Abdomen nondistended, there is no pain to palpation in any of the abdominal quadrants, no palpable masses. Extremities: there is no peripheral edema present at the lower extremities. Peripheral pulses 3+ radial right, 3+ radials soft. 3+ dorsalis pedis right. 3+ dorsalis pedis left Skin: No rashes or pruritus Neurological: Intact cranial nerves with no focal neurologic deficit laboratory and microbiology Laboratory Tests 01/07/25 07:35 01/05/25 21:47 Test 01/05/25 21:47 Range/Units Serum Glucose 114 H 74-106 mg/dL Microbiology Date/Time Source Procedure Growth Status 01/06/25 02:05 Voided Urine Urine Culture - Preliminary Resulted Problem List/Assessment/Plan Problem List/Assessment/Plan Assessment and Plan: Acute metabolic encephalopathy, possibly due to severe anemia Symptomatic chronic macrocytic anemia, Hb 7.5, MCV 104.9, MCH 34.8, RDW 30.3 -1 PRBC tranfusion --Post transfusion HB: 10.3 -Stool occult blood test pending -Bone Marrow Aspirate from 12/02/2024: Phenotypic changes suggestive of myeloid dysmaturation -HIV panel negative, Folate: 20.88, Vitamin B12: 577 Possible acute cystitis -UA: Urine Leukocyte esterase 1+, WBC 14 -Urine culture pending -Ceftriaxone IV 1 g daily Dementia -Monitor mental status Mild protein Calorie Malnutrition -Followed by bolting machine operator -Advance to regular diet DVT prophylaxis: SCD GI prophylaxis: Not indicated Downgrade from telemetry to med-surg. Case discussed with Dr. Barkley Case discussed with her daughter, Amita, for 15 minutes. FULL CODE. Plan discussed with: Daughter Dietary Evaluation Review Comments: Explore serum iron profile for consideration of possible iron supplementation. Encourage and monitor PO intake to meet at least 75% of her needs Expected Outcomes/Goals: Improved nutrition status Date of Service: Jan 07, 2025 Billing Provider: DANIELLE BARKLEY MD Common Visit Codes: [id number] INP/OBS CARE(HIGH) BRYAN FORD RESIDENT Jan 07, 2025 14:07 DANIELLE BARKLEY MD Jan 07, 2025 20:28
[2025-01-07 20:00] VITALS: PULSE 85; RESP 17
[2025-01-07 21:00] VITALS: BP 105/53; PULSE 85; RESP 17; TEMP 98.9; O2SAT 97
[2025-01-08] VITALS (8 sets, daily range): BP systolic 92–111; BP diastolic 43–81; PULSE 60–93; RESP 14–18; TEMP 37; O2SAT 93–96
[2025-01-08 06:33] LABS: Hematocrit 25.2 % (36.0-46.0); Hemoglobin 8.5 g/dL (12.2-16.2); Mean Corpuscular Hemoglobin 33.4 pg (28.0-32.0); Mean Corpuscular Volume 99.2 fL (80.0-100.0); Nucleated Red Blood Cells % 0.1 %; Potassium 4.4 mmol/L (3.5-5.1); Sodium 140 mmol/L (136-145)
[2025-01-08 06:34] LABS: Anion Gap 9 (5-15); Carbon Dioxide 23 mmol/L (20-31)
[2025-01-08 06:39] LABS: BUN/Creatinine Ratio 33.3 (10.0-20.0); Blood Urea Nitrogen 16 mg/dL (9-23); Glucose 97 mg/dL (74-106)
[2025-01-08 06:42] LABS: Calcium 8.6 mg/dL (8.7-10.4); Chloride 108 mmol/L (98-107)
[2025-01-08 08:01] LABS: Anisocytosis Slight
[2025-01-08] MEDS ORDERED: CEPH250C PO (11:22)
[2025-01-08 11:31] LABS: Hepatitis A Total Antibody Positive (Negative)
[2025-01-08 11:32] LABS: Hepatitis B Surface Antigen Negative (Negative); Hepatitis C Antibody Negative (Negative)
--- NOTE | 2025-01-08 11:49 | DVHDSRES ---
Discharge Summary Date of Admission Resident Creating Document: BRYAN FORD RESIDENT Jan 06, 2025 at 02:07 Date of Discharge: Jan 08, 2025 Labs/Diagnostic Data: Laboratory Results Test 01/08/25 05:50 01/06/25 19:32 01/06/25 09:04 01/06/25 03:17 White Blood Count 5.1 10^3/uL (4.4-10.8) Red Blood Count 2.53 10^6/uL (4.0-5.20) Hemoglobin 8.5 g/dL (12.2-16.2) Hematocrit 25.2 % (36.0-46.0) Mean Corpuscular Volume 99.2 fL (80.0-100.0) Mean Corpuscular Hemoglobin 33.4 pg (28.0-32.0) Mean Corpuscular Hemoglobin Concent 33.6 g/dL (32.0-36.0) Red Cell Distribution Width 28.5 % (11.8-14.3) Platelet Count 285 10^3/uL (140-450) Mean Platelet Volume 8.2 fL (6.9-10.8) Neutrophils (%) (Auto) 55.7 % (37.0-80.0) Lymphocytes (%) (Auto) 22.9 % (10.0-50.0) Monocytes (%) (Auto) 13.2 % (0.0-12.0) Eosinophils (%) (Auto) 7.4 % (0.0-7.0) Basophils (%) (Auto) 0.8 % (0.0-2.0) Neutrophils # (Auto) 2.8 10 ^3/uL (1.6-8.6) Lymphocytes # (Auto) 1.2 10 ^3/uL (0.4-5.4) Monocytes # (Auto) 0.7 10 ^3/uL (0-1.3) Eosinophils # (Auto) 0.4 10 ^3/uL (0-0.8) Basophils # (Auto) 0 10 ^3/uL (0-0.2) Nucleated Red Blood Cells 0.1 % Platelet Estimate Adequate Anisocytosis (manual) Slight Sodium Level 140 mmol/L (136-145) Potassium Level 4.4 mmol/L (3.5-5.1) Chloride Level 108 mmol/L (98-107) Carbon Dioxide Level 23 mmol/L (20-31) Anion Gap 9 (5-15) Blood Urea Nitrogen 16 mg/dL (9-23) Creatinine 0.48 mg/dL (0.550-1.02) Glomerular Filtration Rate Calc 92 mL/min (>90) BUN/Creatinine Ratio 33.3 (10.0-20.0) Serum Glucose 97 mg/dL (74-106) Calcium Level 8.6 mg/dL (8.7-10.4) Poikilocytosis (manual) Slight Ovalocytes Few Schistocytes Few Ammonia 19 umol/L (11-32) Vitamin B12 Level 577 pg/mL (211-911) Folic Acid 20.88 ng/mL (>5.38) Hepatitis A Antibody Total Positive (Negative) Hepatitis B Surface Antigen Negative (Negative) Hepatitis B Surface Antibody Negative (Negative) Hepatitis B Core Total Antibody Negative (Negative) Hepatitis C Antibody Negative (Negative) HIV (1&2) Antibody Negative (Negative) Test 01/06/25 02:05 01/05/25 23:03 01/05/25 21:47 Urine Color Yellow (Yellow) Urine Clarity Clear (Clear) Urine pH 5.5 (5.0-9.0) Urine Specific [place] 1.024 (1.001-1.035) Urine Protein Negative (Negative) Urine Ketones Negative (Negative) Urine Blood Negative /uL (Negative) Urine Nitrite Negative (Negative) Urine Bilirubin Negative (Negative) Urine Urobilinogen 3 mg/dL (Negative) Urine Leukocyte Esterase 1+ /uL (Negative) Urine RBC 1 /hpf (0 - 4) Urine Microscopic WBC 14 /HPF (0-5) Urine Squamous Epithelial Cells Few /hpf (<5) Urine Bacteria None seen /hpf (None Seen) Urine Mucus Few (None Seen) Urine Glucose Normal mg/dL (Normal) Magnesium Level 1.8 mg/dL (1.6-2.6) Troponin I High Sensitivity 4 ng/L (</=34) Lactic Acid Level 1.3 mmol/L (0.4-2.0) Total Bilirubin 1.1 mg/dL (0.2-1.0) Aspartate Amino Transferase (AST) 26 U/L (13-40) Alanine Aminotransferase (ALT) 27 U/L (7-40) Alkaline Phosphatase 81 U/L (46-116) B-Type Natriuretic Peptide 231.76 pg/mL (0-100) Total Protein 6.4 g/dL (5.7-8.2) Albumin 4.1 g/dL (3.2-4.8) Lipase 33 U/L (12-53) Thyroid Stimulating Hormone (TSH) 3.50 uIU/mL (0.55-4.78) Other Laboratory Tests 01/08/25 05:50 Brief Hx & Hospital Course: Patient is an 84-year-old female with prior medical history of chronic macrocytic anemia with multiple transfusions and dementia, who was brought to the ED via EMS due to altered mental status. Per her daughter, Amita, the patient began to complain of fatigue and tiredness 2 days prior. Symptoms progressed to shortness of breath and chest pain for which she was brought to seek medical care. Denied cough, fever, chills, nausea, vomiting, and palpitations. Daughter states that patient was discharged from this institution on 12/03/2024, during her inpatient stay she was given transfusions and a bone marrow biopsy was taken, significant for phenotypic changes suggestive of myeloid dematuration. On evaluation in the ED patient was found to be pale and in mild distress. Labs show hemoglobin of 7.5, HCT 22.6, MCV 104.9, MCH 34.8, RDW 30.3, and UA suggestive of UTI. Twelve lead EKG performed in the ED shows sinus rhythm. She was admitted for symptomatic anemia to be treated with blood transfusions and further monitoring. She was transfused 1 unit of PRBC and started on IV ceftriaxone. Post transfusion Hb 10.3 and hematocrit of 31.2, second transfusion was thus cancelled. Labs showed vitamin B12 577, folic acid 20.88, negative HIV panel, hepatitis A antibody positive, hepatitis B and C panel negative. On evaluation patient is at her baseline level of alertness, stating she feels well, ambulating with walker and the help of PT, tolerating regular diet, and having bowel movements. Today's hemoglobin is 8.5, patient is considered stable for discharge home with Keflex for completion of antibiotic regimen for UTI and recommendation to follow up with PCP in 1-2 weeks and to follow up with Heme-Onc for further evaluation and management. Plan was discussed with the patient's daughter, who is her power of associate attorney, who states she understands. Operations or Procedures EXAM: XY CHEST XRAY 1 VIEW Indication: pain; pna Technique: Single frontal view of the chest was obtained Comparison: XY CHEST PORTABLE on DOS: 11/27/24, XY CHEST XRAY 1 VIEW on DOS: 11/18/24, CHEST PORTABLE on DOS: 04/29/22, CXRP on DOS: 04/29/22, EKG on DOS: 04/29/22 FINDINGS: Lines and Tubes: None Lungs:Interstitial opacities. Pleura: No effusion. No pneumothorax. Cardiomediastinal contours: Unremarkable. Atherosclerotic vascular calcifications of the thoracic aorta are noted. Bones: No acute osseous abnormality. IMPRESSION: Interstitial opacities . Condition at Discharge: Stable Final Diagnosis/Problems List Symptomatic Chronic Macrocytic Anemia Possible Acute Cystitis Acute metabolic encephalopathy, possibly due to severe anemia Dementia Mild protein calorie malnutrition Discharge Disposition: Home Discharge Instruct/Medications Diet: Regular Activity: No Restrictions, As Tolerated Follow Up/Referral: Follow up with PCP in 1-2 weeks Follow up with Supervisor Diagnostic-Oncologist Medications: Keflex Resume home medications Scheduled Cephalexin (Keflex Capsule), 250 MG PO Q6HR Folic Vudx-Iddliuoxug-Biwuonal (Folbic), 1 TAB PO DAILY Latanoprost (Latanoprost), 1 DROP EACHEYE HS Megestrol Acetate (Appetite) (Megestrol Acetate), 625 MG PO DAILY Miscellaneous Medications Dorzolamide Hydrochloride (Dorzolamide HCl), 1 % EACHEYE, (Reported) Discharge Statement: "Patient was advised to return to the ER or call 911 if any headaches, dizziness, shortness of breath, chest pain, abdominal pain, bleeding, fevers, or worsening of medical condition. Patient was counseled about treatment plan, medications, possible side effects, patientverbalized understanding. All questions were answered to the best of my ability. This discharge took greater then 30 minutes in planning, reviewing documentation, counseling the patient, and discussing with other team members." ASSESSMENT ASSESSMENT Assessment Symptomatic Chronic Macrocytic Anemia Possible Acute Cystitis Date of Service: Jan 08, 2025 Billing Provider: DANIELLE BARKLEY MD Common Visit Codes: [id number] DISCH DAY >30min BRYAN FORD RESIDENT Jan 08, 2025 11:49 DANIELLE BARKLEY MD Jan 08, 2025 14:23
--- NOTE | 2025-01-08 13:34 | ECG ---
[facility] Test Date: 2025-01-06 Test Time: 00:52:25 Pat Name: ANTHONY ANDREWS Department: ED Room: 0250 A Gender: F Automotive Engineering Technician: : 1940 Requested By: JOÃO CHAVIRA Order Number: [id number] Reading MD: Jc Pinzon Measurements Intervals [place] Rate: 89 P: 30 GA: 130 QRS: 37 QRSD: 80 T: 28 QT: 355 QTc: 432 Interpretive Statements Sinus rhythm Low voltage, precordial leads Electronically Signed On 01-09-2025 18:56:23 PDT by Jc Pinzon Please click the below link to view image of tracing.
--- NOTE | 2025-01-09 13:04 | DVHSR ---
APPROVED REPORT EXAM: Two-dimensional and M-mode echocardiogram with Doppler and color Doppler. INDICATION Chest Pain DIMENSIONS LVDd3.9 (3.8-5.7cm)LA (2D)4.0 (1.9-4.0cm)Aortic Root2.9 (2.0-3.7cm) LVDs2.4 (2.5-4.0cm)LA (MM) (1.9-4.0cm)Aortic Cusp Exc1.6 (1.5-2.0cm) EF (%) 70.0 (55-70%)Rt. Atrium (1.9-4.0cm)Asc. Aorta3.0 cm IVSd0.7 (0.7-1.1cm)RV (D) (1.8-2.4cm) PWd0.9 (0.7-1.1cm) Mitral Valve MitralMitral Stenosis E/A ratio0.02D MVAcm2 Aortic Valve Aortic ValveAortic Stenosis LVOT Diameter2.0 (1.8-2.4cm)Doppler AVAcm2 2D AVA2.33cm2 Pulmonic Valve V21.10m/s Tricuspid Valve TR Velocity2.39m/s [id number] Other Information Quality : Technically LimitedRhythm : Technically limited study due to body habitus. Conclusion Sinus rhythm. Normal chamber sizes. Mild dilation of the sinuses of Valsalva. Normal valves. EF of 60% with normal RV function. Trace aortic insufficiency. Moderate tricuspid regurgitation. Moderate pulmonic insufficiency. No pericardial effusion masses or vegetations.
== END 2025-01-08 18:53 | disposition home or self-care (01) | DRG 811 ==
LOC: EDBD 21:17 → ER 21:17 → OVERFLOW 01-06 02:07 → TELE-EAST 01-06 02:50 → EAST 01-08 00:49
PROVIDERS: ADMIT Student in an Organized Health Care Education/Training Program; ATTEND Student in an Organized Health Care Education/Training Program
PROC: 30233N1 Transfusion of Nonautologous Red Blood Cells into Peripheral Vein, Percutaneous Approach (ICD-10-PCS; principal; 2025-01-06)
DX: D50.9 Iron deficiency anemia, unspecified (principal); G93.41 Metabolic encephalopathy; E44.1 Mild protein-calorie malnutrition; N30.00 Acute cystitis without hematuria; Z68.1 Body mass index [BMI] 19.9 or less, adult; D53.9 Nutritional anemia, unspecified; F03.90 Unspecified dementia, unspecified severity, without behavioral disturbance, psychotic disturbance, mood disturbance, and anxiety; I50.9 Heart failure, unspecified; Z79.899 Other long term (current) drug therapy; Z90.710 Acquired absence of both cervix and uterus; Z86.0100 Personal history of colon polyps, unspecified
CPT/HCPCS: 36415; 36430; 71045; 80048; 80053; 81001; 82140; 82607; 82746; 83605; 83690; 83735; 83880; 84443; 84484; 85025; 86038; 86703; 86704; 86706; 86708; 86803; 86850; 86900; 86901; 86920; 87086; 87340; 93005; 93306; 97116; 97163; 97530; G0378

== ENCOUNTER 2025-01-11 12:28 | Inpatient (IN) | payer MEDICARE, MEDICAID ==
[~2025-01-11] VITALS: Ht 165.1 cm; Wt 45.2 kg
[~2025-01-11 12:28] MED LIST changes: +CEPH250C PO
[2025-01-11 13:10] VITALS: PULSE 76; RESP 21; O2SAT 95
--- NOTE | 2025-01-11 13:16 | ED.PDOC ---
History of Present Illness HPI Comments HPI: 84y F who presents to the ED via EMS for chief complaint of generalized weakness. - per EMS, pt has history of dementia and family states they called due to pt having weakness since yesterday from possible low hemoglobin and wanted her evaluated. - pt in the ED, is baseline per family, ax0x3 and denies any associated symptoms, aches or pains - pt has been to multiple times for same complaints and was previously transfused and discharged - pt was admitted to and was discharged on 01/08 with the following discharge summary: - Patient is an 84-year-old female with prior medical history of chronic macrocytic anemia with multiple transfusions and dementia, who was brought to the ED via EMS due to altered mental status. Per her daughter, Amita, the patient began to complain of fatigue and tiredness 2 days prior. Symptoms progressed to shortness of breath and chest pain for which she was brought to seek medical care. Denied cough, fever, chills, nausea, vomiting, and palpitations. Daughter states that patient was discharged from this institution on 12/03/2024, during her inpatient stay she was given transfusions and a bone marrow biopsy was taken, significant for phenotypic changes suggestive of myeloid dematuration. On evaluation in the ED patient was found to be pale and in mild distress. Labs show hemoglobin of 7.5, HCT 22.6, MCV 104.9, MCH 34.8, RDW 30.3, and UA suggestive of UTI. Twelve lead EKG performed in the ED shows sinus rhythm. She was admitted for symptomatic anemia to be treated with blood transfusions and further monitoring. She was transfused 1 unit of PRBC and started on IV ceftriaxone. Post transfusion Hb 10.3 and hematocrit of 31.2, second transfusion was thus cancelled. Labs showed vitamin B12 577, folic acid 20.88, negative HIV panel, hepatitis A antibody positive, hepatitis B and C panel negative. On evaluation patient is at her baseline level of alertness, stating she feels well, ambulating with walker and the help of PT, tolerating regular diet, and having bowel movements. Today's hemoglobin is 8.5, patient is considered stable for discharge home with Keflex for completion of antibiotic regimen for UTI and recommendation to follow up with PCP in 1-2 weeks and to follow up with Heme-Onc for further evaluation and management. Plan was discussed with the patient's daughter, who is her power of attorney recruiter, who states she understands. Past Medical History: myeloid dematuration, Symptomatic Chronic Macrocytic Anemia , Dementia, recurrent UTI's Past Surgical History: Hysterectomy Social History: Denies ETOH, smoking, and drug use. Medications: Allergies: navarrete: GEN WEAK, ANEMIA. HPI: Poor Historian. REVIEW OF SYSTEMS: CONSTITUTIONAL: Denies acute: fever, diaphoresis, chills, HEAD: Denies acute: headache, photophobia Eyes: Denies acute: Double vision, vision loss, eye pain, eye discharge. EARS: Denies acute: tinnitus, hearing loss, ear discharge, ear pain, THROAT: Denies acute: sore throat, swelling, difficulty swallowing , pain with swallowing, change in voice. NECK: Denies acute: neck pain, neck swelling, stiff neck. HEART: Denies acute : chest pain, palpitations, LUNGS: Denies acute: SOB, wheezing, cough, hemoptysis ABDOMEN: Denies acute: abdominal pain, Nausea, Vomiting, diarrhea, melena , hematemesis, hematochezia SKIN: Denies acute: rash, redness, lesions, itchiness. EXTREMITIES: Denies acute: calf pain, numbness, tingling, weakness, denies pain in extremity. Denies acute: Low back pain. Neuro: Denies acute: focal neurological deficit, motor or sensory focal neurological deficit, tremors, seizure like activity, confusion, dizziness, change in mental status, loss of bowel or bladder function, cauda equina like symptoms. : Denies acute: dysuria, hematuria, flank pain, increase in urinary frequency. PSYCH: Denies acute: hallucination, suicidal ideation, homicidal ideation. FEMALE: Denies acute: abnormal vaginal bleeding, foul odor, unusual discharge. PHYSICAL EXAM: General: ----no----acute distress, awake and alert. Hard of hearing Head: normocephalic, atraumatic. Neck: supple, trachea is midline, no swelling. Throat: Normal phonation. Eyes:, no erythema, no purulent discharge, no proptosis, no icterus. Heart: regular rate, regular rhythm, no significant murmur appreciated. Lungs: no apparent respiratory distress, Able to speak in full sentences. No wheezing, no rhonchi, no crackles. No stridors Clear to auscultation bilaterally. Abdomen: non tender to palpation, non distended, soft, no guarding, no rebound, + bowel sounds. Neuro: Awake, Alert, oriented to name, self, situation, follows commands Speech is normal. Skin: no petechia, no purpura, no cyanosis, slightly-pale, not jaundice. Lower extremities: --no - Pitting edema no deformity, no focal swelling, no calf TTP. Makes eye contact. moves all four extremities. Face: no apparent facial droop. ED COURSE: DISCLAIMER: This medical document was created using an electronic medical record system with voice recognition software and computerized dictation system. Although this document has been carefully reviewed, there might still be some phonetic and typographical errors. Occasional wrong-word or "sound-alike" substitutions may have occurred due to the inherent limitations of voice recognition software. These areas are purely typographical due to imperfections of the software programs and do not reflect any compromise in the patient's medical care. Please read the chart carefully and recognize, using context, where these substitutions have occurred. Chief Complaint: General Weakness Time Seen by MD: 12:38 Primary Care Provider: UNKNOWN Reviewed Notes: Nurses Notes Allergies: Coded Allergies: NO KNOWN ALLERGIES (Unverified , 04/29/11) Home Meds Active Scripts Cephalexin (KEFLEX CAPSULE) 250 Mg Cp, 250 MG PO Q6HR for 2 Days, #8 CAP Prov:STEVEN AYALA RESIDENT 01/08/25 Folic Swda-Vohapflffv-Wyveioux (Folbic) Tab, 1 TAB PO DAILY for 30 Days, #90 TAB 0 Refills Prov:TENZIN CISNEROS RESIDENT 12/03/24 Megestrol Acetate (Appetite) (Megestrol Acetate) 625 Mg/5 Ml Janette, 625 MG PO DAILY for 10 Days, #50 ML 0 Refills Prov:BETH FERNANDEZ RESIDENT 11/25/24 Latanoprost (LATANOPROST) 0.005 % Roya, 1 DROP EACHEYE HS for 28 Days, #2.5 ML Prov:BETH FERNANDEZ RESIDENT 11/25/24 Reported Medications Dorzolamide Hydrochloride (Dorzolamide HCl) 2 % Roya, 1 % EACHEYE, ML 11/20/24 Information Source: Patient Mode of Arrival: EMS Past Medical History PAST MEDICAL HISTORY: Anemia, Dementia Surgical History: Hysterectomy RETENTION REPRESENTATIVE History: Denies all RETENTION REPRESENTATIVE Hx Family History Family History: Reviewed,noncontributory to illness Social History Smoker: Non-Smoker Alcohol: Denies ETOH Use Drugs: Denies Drug Use Lives In: Home Was a procedure done? Was a procedure done?: No Differential Dx Considerations may include: Includes but not limited to thyroid disease, encephalopathy, electrolyte abnormality, sepsis, infection, intracranial pathology, drug adverse effects, arrhythmia, kidney insufficiency, ACS, CVA, malignancy, anemia X-Ray, Labs, Meds, VS Vital Signs Date Time Temp Pulse Resp B/P (MAP) Pulse Ox O2 Delivery O2 Flow Rate FiO2 01/11/25 20:00 97.8 74 24 114/51 (72) 95 97.8 01/11/25 19:20 Room Air* 0 21 01/11/25 18:00 77 22 102/49 (66) 96 01/11/25 17:00 87 20 119/50 (73) 94 01/11/25 16:00 79 01/11/25 16:00 98.0 79 22 114/48 (70) 96 98.0 01/11/25 15:00 74 27 103/46 (65) 97 01/11/25 14:00 77 15 123/59 (80) 97 01/11/25 13:10 76 21 95 Room Air* 0 21 01/11/25 13:10 98.3 76 21 102/41 (61) 95 98.3 01/11/25 12:50 98.4 80 18 105/48 (67) 95 98.4 01/11/25 12:28 80 Lab Test 01/11/25 17:13 01/11/25 15:14 01/11/25 14:07 01/11/25 13:17 Range/Units Hemoglobin 8.3 L 8.8 L 12.2-16.2 g/dL Hematocrit 25.5 L 26.1 L 36.0-46.0 % Troponin I High Sensitivity 4 3 L 4 </=34 ng/L C-Reactive Protein High Sensitivity 0.88 <1.0 mg/dL Urine Color Yellow Yellow Urine Clarity Clear Clear Urine pH 6.5 5.0-9.0 Urine Specific Gilbert 1.012 1.001-1.035 Urine Protein Negative Negative Urine Ketones Negative Negative Urine Blood Negative Negative /uL Urine Nitrite Negative Negative Urine Bilirubin Negative Negative Urine Urobilinogen 3 H Negative mg/dL Urine Leukocyte Esterase Negative Negative /uL Urine RBC None seen 0 - 4 /hpf Urine Microscopic WBC 5 0-5 /HPF Urine Squamous Epithelial Cells Few <5 /hpf Urine Bacteria None seen None Seen /hpf Urine Glucose Normal Normal mg/dL White Blood Count 5.5 4.4-10.8 10^3/uL Red Blood Count 2.61 L 4.0-5.20 10^6/uL Mean Corpuscular Volume 100.0 80.0-100.0 fL Mean Corpuscular Hemoglobin 33.7 H 28.0-32.0 pg Mean Corpuscular Hemoglobin Concent 33.7 32.0-36.0 g/dL Red Cell Distribution Width 28.3 H 11.8-14.3 % Platelet Count 335 140-450 10^3/uL Mean Platelet Volume 8.4 6.9-10.8 fL Neutrophils (%) (Auto) 57.7 37.0-80.0 % Lymphocytes (%) (Auto) 24.1 10.0-50.0 % Monocytes (%) (Auto) 14.1 H 0.0-12.0 % Eosinophils (%) (Auto) 3.1 0.0-7.0 % Basophils (%) (Auto) 1.0 0.0-2.0 % Neutrophils # (Auto) 3.1 1.6-8.6 10 ^3/uL Lymphocytes # (Auto) 1.3 0.4-5.4 10 ^3/uL Monocytes # (Auto) 0.8 0-1.3 10 ^3/uL Eosinophils # (Auto) 0.2 0-0.8 10 ^3/uL Basophils # (Auto) 0.1 0-0.2 10 ^3/uL Nucleated Red Blood Cells 0.1 % Reticulocyte Count (auto) 1.59 H 0.5-1.5 % Sodium Level 140 136-145 mmol/L Potassium Level 4.0 3.5-5.1 mmol/L Chloride Level 109 H 98-107 mmol/L Carbon Dioxide Level 24 20-31 mmol/L Anion Gap 7 5-15 Blood Urea Nitrogen 12 9-23 mg/dL Creatinine 0.45 L 0.550-1.02 mg/dL Glomerular Filtration Rate Calc 94 >90 mL/min BUN/Creatinine Ratio 26.7 H 10.0-20.0 Serum Glucose 86 74-106 mg/dL Lactic Acid Level 1.2 0.4-2.0 mmol/L Calcium Level 9.1 8.7-10.4 mg/dL Total Bilirubin 1.1 H 0.2-1.0 mg/dL Aspartate Amino Transferase (AST) 32 13-40 U/L Alanine Aminotransferase (ALT) 27 7-40 U/L Alkaline Phosphatase 74 46-116 U/L Total Protein 6.4 5.7-8.2 g/dL Albumin 4.0 3.2-4.8 g/dL Current Medications Medications (Trade) Dose Ordered Sig/Eugene Route Start Time Stop Time Status Last Admin Sodium Chloride 1,000 ml @ 1,000 mls/hr Q1H ONCE IV 01/11/25 14:15 01/11/25 15:14 DC 01/11/25 15:42 Time of 1ST Reevaluation: 22:00 Reevaluation 1ST: Unchanged Patient Education/Counseling: Diagnosis, Treatment Family Education/Counseling: No Family Present Comments MDM: patient presented with the above HPI.---generalized weakness---workup was initiated. patient was found with the above mentioned diagnosis. the following medications were ordered: please refer to order lists of meds and tests obtained by myself Dr. Pascual. Patient ED course and VS have been stabilized. Patient has been reassessed in the ED and remained in a stable condition. Patient has been observed in the ED adequate length of time to insure improvement/stability. Escalation of care considered: Consideration of escalation to observation or admission Patient was found with symptomatic anemia recurrent in nature. No reported history of any source of bleeding. Patient had blood transfusion recently. Patient was hospitalist and discharged few days ago. Patient was ADMITTED to the medicine team for further evaluation and treatment of their presentation. Chest x-ray suggested possible pneumonia. The admitting team started Rocephin IV. All the reports of any imaging studies that were ordered by myself were reviewed by myself. SEPSIS Sepsis Screen Date sepsis recognized/suspect: Jan 11, 2025 Time Sepsis recognized/suspect: 1230 Recent Procedure: No On Antibiotic Therapy: No Respiratory Rate >20: No Heart Rate >90: No Temp<36 C (96.8 F) or >38.3 C: No SBP <90 or MAP <65 mmHG: No New Acute Mental Status Change: No Is the patient on CPAP, BIPAP,: No Physician Orders Electrocardigram (01/11/25 12:56) Mandarin Teacher (01/11/25 ) Chest Xray 1 View (01/11/25 20:02) Vital Signs Date Time Temp Pulse Resp B/P (MAP) Pulse Ox O2 Delivery O2 Flow Rate FiO2 01/11/25 20:00 97.8 74 24 114/51 (72) 95 97.8 01/11/25 19:20 Room Air* 0 21 01/11/25 18:00 77 22 102/49 (66) 96 01/11/25 17:00 87 20 119/50 (73) 94 01/11/25 16:00 79 01/11/25 16:00 98.0 79 22 114/48 (70) 96 98.0 01/11/25 15:00 74 27 103/46 (65) 97 01/11/25 14:00 77 15 123/59 (80) 97 01/11/25 13:10 76 21 95 Room Air* 0 21 01/11/25 13:10 98.3 76 21 102/41 (61) 95 98.3 01/11/25 12:50 98.4 80 18 105/48 (67) 95 98.4 01/11/25 12:28 80 Laboratory Tests Test 01/11/25 13:17 Lactic Acid Level 1.2 mmol/L (0.4-2.0) White Blood Count 5.5 10^3/uL (4.4-10.8) Medications Medications Dose Ordered Sig/Eugene Route Start Time Stop Time Status Last Admin Dose Admin Sodium Chloride 1,000 ml @ 1,000 mls/hr Q1H ONCE IV 01/11/25 14:15 01/11/25 15:14 DC 01/11/25 15:42 Departure 1 Departure Time of Disposition: 17:28 Impression: Primary Impression: Symptomatic anemia Additional Impression: Generalized weakness Disposition: 09 ADMITTED INPATIENT Admit to: Tele Condition: Guarded Discharged With: Self Critical Care Note Critical Care Time?: No I personally scribed for ABEBA PASCUAL DO ([email or web address]) on 01/11/25 at 13:16. Electronically [facility] by [facility] ([facility] I personally scribed for ABEBA PASCUAL DO ([facility]) on 01/11/25 at 14:17. Electronically submitted by Esme Garcia ([facility] I personally scribed for ABEBA PASCUAL DO ([facility]) on 01/11/25 at 14:56. Electronically submitted by Esme [facility] ([facility] ABEBA PASCUAL DO Jan 11, 2025 13:16
[2025-01-11 13:40] LABS: Hematocrit 26.1 % (36.0-46.0); Hemoglobin 8.8 g/dL (12.2-16.2); Mean Corpuscular Hemoglobin 33.7 pg (28.0-32.0); Mean Corpuscular Volume 100.0 fL (80.0-100.0); Nucleated Red Blood Cells % 0.1 %
[2025-01-11 14:11] LABS: Alanine Aminotransferase 27 U/L (7-40); Albumin 4.0 g/dL (3.2-4.8); Alkaline Phosphatase 74 U/L (46-116); Anion Gap 7 (5-15); BUN/Creatinine Ratio 26.7 (10.0-20.0); Bilirubin, Total 1.1 mg/dL (0.2-1.0); Blood Urea Nitrogen 12 mg/dL (9-23); Calcium 9.1 mg/dL (8.7-10.4); Carbon Dioxide 24 mmol/L (20-31); Glucose 86 mg/dL (74-106); Potassium 4.0 mmol/L (3.5-5.1); Sodium 140 mmol/L (136-145); Total Protein 6.4 g/dL (5.7-8.2)
[2025-01-11 14:14] LABS: Chloride 109 mmol/L (98-107)
[2025-01-11] MEDS: SODIUM CHLORIDE 0.9% 1,000 ML IV ONE (15:42)
[2025-01-11 17:30] LABS: Hematocrit 25.5 % (36.0-46.0); Hemoglobin 8.3 g/dL (12.2-16.2)
--- NOTE | 2025-01-11 18:10 | DVHHP2 ---
Admitting Diagnosis: Generalized weakness History of Present Illness Patient is an 84-year-old female with prior medical history of chronic macrocytic anemia with multiple transfusions and dementia, who was brought to the ED via EMS due to altered mental status. Per her daughter, Amita, the patient began to complain of fatigue and tiredness 2 days prior. Symptoms progressed to shortness of breath and chest pain for which she was brought to seek medical care. Denied cough, fever, chills, nausea, vomiting, and palpitations. Pt is confused, folow simple commands. no visible signs of bleedi ng. Daughter states that patient was discharged from this institution on 12/03/2024, during her inpatient stay she was given transfusions and a bone marrow biopsy was taken, significant for phenotypic changes suggestive of myeloid dematuration. On evaluation in the ED patient was found to be pale and in mild distress. Labs show hemoglobin of 7.5, HCT 22.6, MCV 104.9, MCH 34.8, RDW 30.3, and UA suggestive of UTI. Twelve lead EKG performed in the ED shows sinus rhythm. She was admitted for symptomatic anemia to be treated with blood transfusions and further monitoring. She was transfused 1 unit of PRBC and started on IV ceftriaxone. Post transfusion Hb 10.3 and hematocrit of 31.2, second transfusion was thus cancelled. Labs showed vitamin B12 577, folic acid 20.88, negative HIV panel, hepatitis A antibody positive, hepatitis B and C panel negative. On evaluation patient is at her baseline level of alertness, stating she feels well, ambulating with walker and the help of PT, tolerating regular diet, and having bowel movements. Today's hemoglobin is 8.5, patient is considered stable for discharge home with Keflex for completion of antibiotic regimen for UTI and recommendation to follow up with PCP in 1-2 weeks and to follow up with Heme-Onc for further evaluation and management. Plan was discussed with the patient's daughter, who is her power of patent attorney, who states she understands. Past Medical History: myeloid dematuration, Symptomatic Chronic Macrocytic Anemia , Dementia, recurrent UTI's Past Surgical History: Hysterectomy Social History: Denies ETOH, smoking, and drug use. Medications: Allergies: Past Medical History: Past Surgical History: REVIEW OF SYSTEMS: CONSTITUTIONAL: Denies acute: fever, diaphoresis, chills, HEAD: Denies acute: headache, photophobia Eyes: Denies acute: Double vision, vision loss, eye pain, eye discharge. EARS: Denies acute: tinnitus, hearing loss, ear discharge, ear pain, THROAT: Denies acute: sore throat, swelling, difficulty swallowing , pain with swallowing, change in voice. NECK: Denies acute: neck pain, neck swelling, stiff neck. HEART: Denies acute : chest pain, palpitations, LUNGS: Denies acute: SOB, wheezing, cough, hemoptysis ABDOMEN: Denies acute: abdominal pain, Nausea, Vomiting, diarrhea, melena , hematemesis, hematochezia SKIN: Denies acute: rash, redness, lesions, itchiness. EXTREMITIES: Denies acute: calf pain, numbness, tingling, weakness, denies pain in extremity. Denies acute: Low back pain. Neuro: Denies acute: focal neurological deficit, motor or sensory focal neurological deficit, tremors, seizure like activity, confusion, dizziness, change in mental status, loss of bowel or bladder function, cauda equina like symptoms. : Denies acute: dysuria, hematuria, flank pain, increase in urinary frequency. PSYCH: Denies acute: hallucination, suicidal ideation, homicidal ideation. FEMALE: Denies acute: abnormal vaginal bleeding, foul odor, unusual discharge. Patient Family History: Cardiovascular disease G8 SISTER Diabetes mellitus G8 SISTER FH: cancer G8 MOTHER G8 FATHER 19 CHILD FH: lung cancer G8 BROTHER Allergies: Coded Allergies: NO KNOWN ALLERGIES (Unverified , 04/29/11) Home Meds Active Scripts Cephalexin (KEFLEX CAPSULE) 250 Mg Cp, 250 MG PO Q6HR for 2 Days, #8 CAP Prov:STEVEN AYALA RESIDENT 01/08/25 Folic Zusn-Zvfkrrrbnv-Ldgcjgcf (Folbic) Tab, 1 TAB PO DAILY for 30 Days, #90 TAB 0 Refills Prov:TENZIN CISNEROS RESIDENT 12/03/24 Megestrol Acetate (Appetite) (Megestrol Acetate) 625 Mg/5 Ml Janette, 625 MG PO DAILY for 10 Days, #50 ML 0 Refills Prov:BETH FERNANDEZ RESIDENT 11/25/24 Latanoprost (LATANOPROST) 0.005 % Roya, 1 DROP EACHEYE HS for 28 Days, #2.5 ML Prov:BETH FERNANDEZ RESIDENT 11/25/24 Reported Medications Dorzolamide Hydrochloride (Dorzolamide HCl) 2 % Roya, 1 % EACHEYE, ML 11/20/24 Vital Signs Vital Signs Date Time Temp Pulse Resp B/P (MAP) Pulse Ox O2 Delivery O2 Flow Rate FiO2 01/11/25 19:20 Room Air* 0 21 01/11/25 18:00 77 22 102/49 (66) 96 01/11/25 16:00 98.0 98.0 SEPSIS Sepsis Screen Date sepsis recognized/suspect: Jan 11, 2025 Time Sepsis recognized/suspect: 1426 Recent Procedure: Yes On Antibiotic Therapy: No Respiratory Rate >20: No Heart Rate >90: No Temp<36 C (96.8 F) or >38.3 C: No SBP <90 or MAP <65 mmHG: No New Acute Mental Status Change: No Is the patient on CPAP, BIPAP,: No Physician Orders Electrocardigram (01/11/25 12:56) Gyroscopic Engineering Technician (01/11/25 ) Chest Xray 1 View (01/11/25 20:02) Vital Signs Date Time Temp Pulse Resp B/P (MAP) Pulse Ox O2 Delivery O2 Flow Rate FiO2 01/11/25 19:20 Room Air* 0 21 01/11/25 18:00 77 22 102/49 (66) 96 01/11/25 17:00 87 20 119/50 (73) 94 01/11/25 16:00 79 01/11/25 16:00 98.0 79 22 114/48 (70) 96 98.0 01/11/25 15:00 74 27 103/46 (65) 97 01/11/25 14:00 77 15 123/59 (80) 97 01/11/25 13:10 76 21 95 Room Air* 0 21 01/11/25 13:10 98.3 76 21 102/41 (61) 95 98.3 01/11/25 12:50 98.4 80 18 105/48 (67) 95 98.4 01/11/25 12:28 80 Laboratory Tests Test 01/11/25 13:17 Lactic Acid Level 1.2 mmol/L (0.4-2.0) White Blood Count 5.5 10^3/uL (4.4-10.8) Medications Medications Dose Ordered Sig/Eugene Route Start Time Stop Time Status Last Admin Dose Admin Sodium Chloride 1,000 ml @ 1,000 mls/hr Q1H ONCE IV 01/11/25 14:15 01/11/25 15:14 DC 01/11/25 15:42 Results Labs Test 01/11/25 17:13 01/11/25 14:07 01/11/25 13:17 Range/Units Hemoglobin 8.3 L 12.2-16.2 g/dL Hematocrit 25.5 L 36.0-46.0 % Troponin I High Sensitivity 4 </=34 ng/L Urine Color Yellow Yellow Urine Clarity Clear Clear Urine pH 6.5 5.0-9.0 Urine Specific Clarence 1.012 1.001-1.035 Urine Protein Negative Negative Urine Ketones Negative Negative Urine Blood Negative Negative /uL Urine Nitrite Negative Negative Urine Bilirubin Negative Negative Urine Urobilinogen 3 H Negative mg/dL Urine Leukocyte Esterase Negative Negative /uL Urine RBC None seen 0 - 4 /hpf Urine Microscopic WBC 5 0-5 /HPF Urine Squamous Epithelial Cells Few <5 /hpf Urine Bacteria None seen None Seen /hpf Urine Glucose Normal Normal mg/dL White Blood Count 5.5 4.4-10.8 10^3/uL Red Blood Count 2.61 L 4.0-5.20 10^6/uL Mean Corpuscular Volume 100.0 80.0-100.0 fL Mean Corpuscular Hemoglobin 33.7 H 28.0-32.0 pg Mean Corpuscular Hemoglobin Concent 33.7 32.0-36.0 g/dL Red Cell Distribution Width 28.3 H 11.8-14.3 % Platelet Count 335 140-450 10^3/uL Mean Platelet Volume 8.4 6.9-10.8 fL Neutrophils (%) (Auto) 57.7 37.0-80.0 % Lymphocytes (%) (Auto) 24.1 10.0-50.0 % Monocytes (%) (Auto) 14.1 H 0.0-12.0 % Eosinophils (%) (Auto) 3.1 0.0-7.0 % Basophils (%) (Auto) 1.0 0.0-2.0 % Neutrophils # (Auto) 3.1 1.6-8.6 10 ^3/uL Lymphocytes # (Auto) 1.3 0.4-5.4 10 ^3/uL Monocytes # (Auto) 0.8 0-1.3 10 ^3/uL Eosinophils # (Auto) 0.2 0-0.8 10 ^3/uL Basophils # (Auto) 0.1 0-0.2 10 ^3/uL Nucleated Red Blood Cells 0.1 % Sodium Level 140 136-145 mmol/L Potassium Level 4.0 3.5-5.1 mmol/L Chloride Level 109 H 98-107 mmol/L Carbon Dioxide Level 24 20-31 mmol/L Anion Gap 7 5-15 Blood Urea Nitrogen 12 9-23 mg/dL Creatinine 0.45 L 0.550-1.02 mg/dL Glomerular Filtration Rate Calc 94 >90 mL/min BUN/Creatinine Ratio 26.7 H 10.0-20.0 Serum Glucose 86 74-106 mg/dL Lactic Acid Level 1.2 0.4-2.0 mmol/L Calcium Level 9.1 8.7-10.4 mg/dL Total Bilirubin 1.1 H 0.2-1.0 mg/dL Aspartate Amino Transferase (AST) 32 13-40 U/L Alanine Aminotransferase (ALT) 27 7-40 U/L Alkaline Phosphatase 74 46-116 U/L Total Protein 6.4 5.7-8.2 g/dL Albumin 4.0 3.2-4.8 g/dL Primary Diagnosis Generalized weakness rule out infection Anemia Plan Resume compromise Check chest x-ray to rule out infection Start ceftriaxone and azithromycin meantime pneumonia Check sputum culture Check CRP , check procalcitonin BC trending down Check occult blood, reticulocyte counts Hemoglobin goal greater than seven CT abdomen and pelvis and chest to assess for bleeding, infection Neuro check for floor protocol Full code SCD for DVT prophylaxis Regular diet PPI for GI prophylaxis Plan discussed with: Patient Date of Service: Jan 11, 2025 Billing Provider: MARK ABDI MD Common Visit Codes: 07035-[id number] INP/OBS CARE (MOD) MARK ABDI MD Jan 11, 2025 18:10
[2025-01-11 18:45] LABS: Urine Protein, UAD Negative (Negative)
[2025-01-11] MEDS ORDERED: ONDANSETRON HCL 4 MG/2 ML VIAL IV PRN (20:15)
[2025-01-11] MEDS ORDERED: HYDROcodone-ACET 5/325MG TAB PO PRN (20:15)
[2025-01-11] MEDS ORDERED: ACETAMINOPHEN 325 MG TAB PO PRN (20:15)
[2025-01-11 20:33] LABS: Hematocrit 25.3 % (36.0-46.0); Hemoglobin 8.4 g/dL (12.2-16.2); Mean Corpuscular Hemoglobin 33.4 pg (28.0-32.0); Mean Corpuscular Volume 101.0 fL (80.0-100.0); Nucleated Red Blood Cells % 0.1 %
[2025-01-11] MEDS: cefTRIAXone 1GM/50ML D5W 50 ML IV SCH (20:44)
[2025-01-11] MEDS: AZITHROMYCIN 500MG/ 250ML 250 ML IV SCH (21:09)
--- NOTE | 2025-01-11 21:51 | DVH ---
CHEST RADIOGRAPH Indication: assess for pneumonia Technique: Single frontal view of the chest was obtained Comparison: XY CHEST XRAY 1 VIEW on DOS: 01/06/25, XY CHEST PORTABLE on DOS: 11/27/24, XY CHEST XRAY 1 V IEW on DOS: 11/18/24 FINDINGS: Lines and Tubes: None Lungs: Diffuse interstitial prominence. Pleura: No effusion. No pneumothorax. Heart and mediastinum:Heart size is within normal limits with mild atherosclerotic calcification and uncoiling of the aorta. Unremarkable Bones: No acute osseous abnormality. IMPRESSION: Interstitial opacities of bilateral lungs which may represent pulmonary edema / atypical pneumonia.
[2025-01-11] MEDS: IOHEXOL 350 MG/ML 100ML IJ ONE (21:53)
[2025-01-11] MEDS: LATANOPROST 0.005 % OPTH(EYE) SOL 2.5ML EACHEYE SCH (22:00)
[2025-01-11] MEDS: SODIUM CHLOR 0.9% PF (SALINE LOCK) 10ML VIAL/SYR IV SCH (22:05)
[2025-01-11 22:33] VITALS: BP 123/55; PULSE 77; PULSE 79; RESP 18; RESP 20; TEMP 97.7; O2SAT 94
--- NOTE | 2025-01-11 23:16 | DVH ---
EXAM: CT CT CHEST/AB/PL W CON- IV ONLY History: assess for malignancy vs infection Comparison Study: None TECHNIQUE: A digital real estate branch manager image was obtained. During the uneventful, intravenous administration of c ontrast material, multislice data acquisition was obtained through the chest. The data set was subseq uently reconstructed into axial, coronal, and sagittal images., abdomen, and pelvis Radiation Dose : CTDI vol 5.75 mGy mGy, DLP 372.74 mGy*cm. Findings: Chest: Evaluation is degraded by respiratory motion. Lungs: There are nonspecific scattered ground-glass opacities throughout the lungs. There is a 1 cm l eft upper lobe nodule. Pleura: Unremarkable Heart/Great vessels: No cardiomegaly or pericardial effusion. The visualized portions of the aorta ar e unremarkable. No CT evidence of central pulmonary embolism. Mediastinum: Calcified subcarinal node is noted. Soft tissues/Bones: Unremarkable. Abdomen /pelvis: Liver: Unremarkable. Gallbladder: Prior cholecystectomy. Spleen: Unremarkable. Pancreas: Unremarkable. Adrenals: Unremarkable. Kidneys: Unremarkable. GI tract: There is colonic diverticulosis. No bowel obstruction. Nonspecific fluid-filled small bowel . : Prior hysterectomy. Vasculature: Mild atherosclerotic aortoiliac calcifications. Lymphadenopathy: Unremarkable. Peritoneum: Unremarkable. Musculoskeletal: Chronic degenerative changes in lumbar compression deformity. Soft tissues: Unremarkable. Impression: 1. Scattered nonspecific ground-glass opacities within the lungs may reflect infectious/inflammatory process or pulmonary vascular congestion in the appropriate clinical setting. 2. Nonspecific fluid-filled small bowel which could reflect an enteritis in the appropriate clinical setting. 3. There is an 11 mm left upper lobe pulmonary nodule. Comparison with any prior outside imaging is suggested in assessing acuity and interval change. If no prior imaging is available, per fleischner society criteria, consider follow-up CT at 3 months, tissue sampling, or PET-CT in further evaluation . 4. Additional findings as detailed.
[2025-01-12] VITALS (8 sets, daily range): BP systolic 104–133; BP diastolic 63–75; PULSE 75–85; RESP 17–18; TEMP 97.5–98.5; O2SAT 93–98
[2025-01-12 05:42] LABS: Hematocrit 29.3 % (36.0-46.0); Hemoglobin 9.5 g/dL (12.2-16.2); Mean Corpuscular Hemoglobin 33.6 pg (28.0-32.0); Mean Corpuscular Volume 103.4 fL (80.0-100.0); Nucleated Red Blood Cells % 0.0 %
[2025-01-12 06:08] LABS: Alanine Aminotransferase 28 U/L (7-40); Albumin 3.9 g/dL (3.2-4.8); Alkaline Phosphatase 76 U/L (46-116); Anion Gap 9 (5-15); BUN/Creatinine Ratio 17.9 (10.0-20.0); Calcium 8.9 mg/dL (8.7-10.4); Carbon Dioxide 21 mmol/L (20-31); Glucose 79 mg/dL (74-106); Potassium 4.2 mmol/L (3.5-5.1); Sodium 138 mmol/L (136-145); Total Protein 6.4 g/dL (5.7-8.2)
[2025-01-12 06:15] LABS: Bilirubin, Total 1.2 mg/dL (0.2-1.0); Blood Urea Nitrogen 7 mg/dL (9-23); Chloride 108 mmol/L (98-107)
[2025-01-12] MEDS: FOLIC ACID PYRIDOXINE CYANCOBA PO SCH (10:00)
[2025-01-12] MEDS: DORZOLAMIDE HCL 2% OPTH(EYE) SOL 10ML EACHEYE SCH (10:00)
[2025-01-12] MEDS: PANTOPRAZOLE 40 MG/10 ML VIAL INJ IV SCH (10:26)
[2025-01-12] MEDS: DOCUSATE SOD 100 MG CAP PO PRN (10:26)
[2025-01-12] MEDS: MEGESTROL ACET 400MG/10ML ORAL SUSP PO SCH (10:26)
--- NOTE | 2025-01-12 12:08 | DVHPNRES ---
Progress Note Date Seen: Jan 12, 2025 Resident Creating Document: TRUPTI MERCEDES RESIDENT Medical Necessity Reason Pt with a Central, PICC or Fol: No Subjective Review of Systems ANTHONY ANDREWS is a 84 years old female with a PMH of chronic microcytic anemia, dementia, recurrent UTIs presented to the ED with the chief complaints of altered level of consciousness and more dizziness since yesterday morning. patient is having multiple admissions in the past due to symptomatic anemia for which she required multiple transfusions and also she has been having multiple UTIs for which she is taking Keflex at home according to daughter. According to daughter since yesterday she is not feeling well with a more altered than usual and some dizziness which prompted them to bring her to ED. but they denies fever, shortness of breath, nausea, vomiting, diarrhea and other associated symptoms. Patient seen and examined at the bedside. Patient is alert but not fully oriented and unable to answer all the questions. But she reported she is feeling good, no new complaints reported at this time. Patient reports: Feels better Objective vital signs Vital Sign Date Time Temp Pulse Resp B/P (MAP) Pulse Ox O2 Delivery O2 Flow Rate FiO2 01/12/25 09:24 98.5 81 17 110/63 (79) 93 98.5 01/12/25 08:00 Room Air* 0 21 Total Intake and Output 01/11/25 01/11/25 01/12/25 15:00 23:00 07:00 Intake Total 1000 ml 100 ml Balance 1000 ml 100 ml medications Current Medications Medications Dose Ordered Sig/[place] Route Start Time Stop Time Status Last Admin Dose Admin Ceftriaxone Sodium 50 ml @ 100 mls/hr Q24H IV 01/11/25 20:30 01/11/25 20:44 100 MLS/HR Azithromycin 250 ml @ 125 mls/hr Q24H IV 01/11/25 20:30 01/11/25 21:09 125 MLS/HR Sodium Chloride 10 ml Q8HR IV 01/11/25 22:00 01/12/25 06:08 10 ML Docusate Sodium 100 mg BIDPRN PRN PO 01/11/25 20:15 01/12/25 10:26 100 MG Acetaminophen 650 mg Q6HP PRN PO 01/11/25 20:15 Acetaminophen/ Hydrocodone Bitart 1 tab Q4HP PRN PO 01/11/25 20:15 Ondansetron HCl 4 mg Q4HP PRN IV 01/11/25 20:15 Pantoprazole Sodium 40 mg DAILY IV 01/12/25 10:00 01/12/25 10:26 40 MG Dorzolamide HCl 2 drop DAILY EACHEYE 01/12/25 10:00 Latanoprost 1 drop HS EACHEYE 01/11/25 22:00 01/11/25 22:00 1 DROP Patient Own Medication 1 tab DAILY PO 01/12/25 10:00 UNV Megestrol Acetate 625 mg DAILY PO 01/12/25 10:00 01/12/25 10:26 625 MG Examination Pt is lying on bed General Appearance: Alert, Not fully oriented, Cooperative, Not in acute distress HEENT: Atraumatic, Mucous membranes moist/pink Respiratory: Bilateral crackles mostly in the left. Cardiovascular: Regular rate, Normal S1, Normal S2, No murmurs Abdominal: Active bowel sounds, Soft, no distention, no tenderness Extremities: No edema, Normal pulses, No tenderness/swelling Skin: No Significant rash, except past surgical scars Neuro: Normal speech, sensorimotor deficits none Psych/Mental Status: Mental status NL, Mood NL Nurse was there as steeler during examination laboratory and microbiology Laboratory Tests 01/12/25 05:00 Test 01/12/25 05:00 Range/Units Serum Glucose 79 74-106 mg/dL Labs and/or images reviewed: Labs reviewed by me, Image(s) reviewed by me Problem List/Assessment/Plan Problem List/Assessment/Plan # Acute on chronic metabolic encephalopathy likely from below # ? Acute Gram-positive/negative bacterial PNA -CXR findings -CT findings also showed bilateral lung opacities -Respiratory cultures, pending -Zosyn and azithromycin -breathing treatments if necessary # Chronic macrocytic anemia, asymptomatic - bone marrow biopsy showed myeloid dysmaturation - upcoming appointment with hematology oncologist, pending -monitor lab GI PPX: Protonix VTE ppx: scds Diet: regular diet Goals of care addressed with the patient's daughter Amita for more than 27 minutes: Full code status Case discussed with Amita Beth and nurse Plan discussed with: Patient, Daughter, Other (RN) My Orders My Orders Orders - TRUPTI MERCEDES RESIDENT Procedure Category Date Status Time Electrocardigram EKG 01/12/25 Logged 11:12 Date of Service: Jan 12, 2025 Billing Provider: TRAVIS RESTREPO MD Common Visit Codes: [id number] INP/OBS CARE(HIGH) DILLON MERCEDESJOHNNY RESIDENT Jan 12, 2025 12:08 TRAVIS RESTREPO MD Jan 12, 2025 23:50
[2025-01-12 13:34] LABS: Hemoglobin 9.3 g/dL (12.2-16.2)
[2025-01-12 13:37] LABS: Hematocrit 28.6 % (36.0-46.0); Mean Corpuscular Hemoglobin 34.3 pg (28.0-32.0); Mean Corpuscular Volume 105.1 fL (80.0-100.0); Nucleated Red Blood Cells % 0.4 %
[2025-01-12 14:21] LABS: Anisocytosis Slight; Macrocytosis Slight
[2025-01-12] MEDS: PIPERACILLIN-TAZOB 3.375GM 100 ML IV SCH (20:01)
[2025-01-12 20:42] LABS: Hematocrit 27.8 % (36.0-46.0); Hemoglobin 9.1 g/dL (12.2-16.2)
[2025-01-12 20:44] LABS: Mean Corpuscular Hemoglobin 33.5 pg (28.0-32.0); Mean Corpuscular Volume 102.8 fL (80.0-100.0); Nucleated Red Blood Cells % 0.2 %
[2025-01-13] VITALS (7 sets, daily range): BP systolic 99–120; BP diastolic 29–74; PULSE 76–96; RESP 16–20; TEMP 97.6–98.8; O2SAT 96–97
[2025-01-13] MEDS: AZITHROMYCIN 500MG/ 250ML 250 ML IV SCH (00:30)
[2025-01-13 06:57] LABS: Alanine Aminotransferase 25 U/L (7-40); Anion Gap 10 (5-15); BUN/Creatinine Ratio 22.8 (10.0-20.0); Blood Urea Nitrogen 13 mg/dL (9-23); Calcium 8.7 mg/dL (8.7-10.4); Carbon Dioxide 20 mmol/L (20-31); Glucose 104 mg/dL (74-106); Potassium 4.5 mmol/L (3.5-5.1); Sodium 141 mmol/L (136-145)
[2025-01-13 06:58] LABS: Chloride 111 mmol/L (98-107); Total Protein 5.7 g/dL (5.7-8.2)
[2025-01-13 06:59] LABS: Albumin 3.4 g/dL (3.2-4.8); Bilirubin, Total 0.8 mg/dL (0.2-1.0)
[2025-01-13 07:00] LABS: Alkaline Phosphatase 67 U/L (46-116)
[2025-01-13 07:16] LABS: Hematocrit 25.7 % (36.0-46.0); Hemoglobin 8.3 g/dL (12.2-16.2); Mean Corpuscular Hemoglobin 34.1 pg (28.0-32.0); Mean Corpuscular Volume 105.1 fL (80.0-100.0); Nucleated Red Blood Cells % 0.3 %
--- NOTE | 2025-01-13 07:34 | ECG ---
[facility] Test Date: 2025-01-12 Test Time: 12:08:37 Pat Name: ANTHONY ANDREWS Department: Respiratoy Room: 0233 A Gender: F Distribution Systems Superintendent: [id number] : 1940 Requested By: TRUPTI MERCEDES Order Number: [id number] Reading MD: Jc Pinzon Measurements Intervals Chromo Rate: 78 P: 0 MS: 0 QRS: 3 QRSD: 77 T: 15 QT: 387 QTc: 441 Interpretive Statements Accelerated junctional rhythm Abnormal R-wave progression, early transition Electronically Signed On 01-13-2025 13:25:16 PDT by Jc Pinzon Please click the below link to view image of tracing.
[2025-01-13] MEDS: PIPERACILLIN-TAZOB 3.375GM 100 ML IV SCH (08:25)
--- NOTE | 2025-01-13 12:54 | ECG ---
[facility] Test Date: 2025-01-11 Test Time: 12:27:44 Pat Name: ANTHONY ANDREWS Department: ED Room: 0233 A Gender: F Pulmonary Fellow: ROSALINA : 1940 Requested By: ABEBA PASCUAL Order Number: [id number] Reading MD: Jc Pinzon Measurements Intervals [place] Rate: 80 P: 45 MN: 174 QRS: 30 QRSD: 84 T: 31 QT: 367 QTc: 424 Interpretive Statements Sinus rhythm Abnormal R-wave progression, early transition Electronically Signed On 01-13-2025 19:26:48 PDT by Jc Pinzon Please click the below link to view image of tracing.
[2025-01-13] MEDS ORDERED: AUG875T PO (13:20)
[2025-01-13] MEDS ORDERED: DOCU-94 PO (13:36)
[2025-01-13] MEDS ORDERED: CYAN-17 PO (13:36)
--- NOTE | 2025-01-13 14:06 | DVHDSRES ---
Discharge Summary Date of Admission Resident Creating Document: IZABELA STEPHENS Jan 11, 2025 at 20:03 Date of Discharge: Jan 13, 2025 Admitting Diagnosis Altered mental status Labs/Diagnostic Data: Laboratory Results Test 01/13/25 05:34 01/12/25 12:55 01/11/25 17:13 01/11/25 14:07 White Blood Count 6.5 10^3/uL (4.4-10.8) Red Blood Count 2.44 10^6/uL (4.0-5.20) Hemoglobin 8.3 g/dL (12.2-16.2) Hematocrit 25.7 % (36.0-46.0) Mean Corpuscular Volume 105.1 fL (80.0-100.0) Mean Corpuscular Hemoglobin 34.1 pg (28.0-32.0) Mean Corpuscular Hemoglobin Concent 32.5 g/dL (32.0-36.0) Red Cell Distribution Width 28.4 % (11.8-14.3) Platelet Count 282 10^3/uL (140-450) Mean Platelet Volume 8.9 fL (6.9-10.8) Neutrophils (%) (Auto) 56.6 % (37.0-80.0) Lymphocytes (%) (Auto) 25.9 % (10.0-50.0) Monocytes (%) (Auto) 12.9 % (0.0-12.0) Eosinophils (%) (Auto) 3.2 % (0.0-7.0) Basophils (%) (Auto) 1.4 % (0.0-2.0) Neutrophils # (Auto) 3.6 10 ^3/uL (1.6-8.6) Lymphocytes # (Auto) 1.7 10 ^3/uL (0.4-5.4) Monocytes # (Auto) 0.8 10 ^3/uL (0-1.3) Eosinophils # (Auto) 0.2 10 ^3/uL (0-0.8) Basophils # (Auto) 0.1 10 ^3/uL (0-0.2) Nucleated Red Blood Cells 0.3 % Sodium Level 141 mmol/L (136-145) Potassium Level 4.5 mmol/L (3.5-5.1) Chloride Level 111 mmol/L (98-107) Carbon Dioxide Level 20 mmol/L (20-31) Anion Gap 10 (5-15) Blood Urea Nitrogen 13 mg/dL (9-23) Creatinine 0.57 mg/dL (0.550-1.02) Glomerular Filtration Rate Calc 88 mL/min (>90) BUN/Creatinine Ratio 22.8 (10.0-20.0) Serum Glucose 104 mg/dL (74-106) Calcium Level 8.7 mg/dL (8.7-10.4) Total Bilirubin 0.8 mg/dL (0.2-1.0) Aspartate Amino Transferase (AST) 34 U/L (13-40) Alanine Aminotransferase (ALT) 25 U/L (7-40) Alkaline Phosphatase 67 U/L (46-116) Total Protein 5.7 g/dL (5.7-8.2) Albumin 3.4 g/dL (3.2-4.8) Platelet Estimate Adequate Anisocytosis (manual) Slight Macrocytosis Slight Troponin I High Sensitivity 4 ng/L (</=34) C-Reactive Protein High Sensitivity 0.88 mg/dL (<1.0) Urine Color Yellow (Yellow) Urine Clarity Clear (Clear) Urine pH 6.5 (5.0-9.0) Urine Specific [place] 1.012 (1.001-1.035) Urine Protein Negative (Negative) Urine Ketones Negative (Negative) Urine Blood Negative /uL (Negative) Urine Nitrite Negative (Negative) Urine Bilirubin Negative (Negative) Urine Urobilinogen 3 mg/dL (Negative) Urine Leukocyte Esterase Negative /uL (Negative) Urine RBC None seen /hpf (0 - 4) Urine Microscopic WBC 5 /HPF (0-5) Urine Squamous Epithelial Cells Few /hpf (<5) Urine Bacteria None seen /hpf (None Seen) Urine Glucose Normal mg/dL (Normal) Test 01/11/25 13:17 Reticulocyte Count (auto) 1.59 % (0.5-1.5) Lactic Acid Level 1.2 mmol/L (0.4-2.0) Other Laboratory Tests 01/13/25 05:34 Brief Hx & Hospital Course: ANTHONY ANDREWS is a 84 years old female with a PMH of chronic macrocytic anemia, dementia, recurrent UTIs presented to the ED with the chief complaints of altered level of consciousness and more dizziness since yesterday morning. patient is having multiple admissions in the past due to symptomatic anemia for which she required multiple transfusions and also she has been having multiple UTIs for which she is taking Keflex at home according to daughter. According to daughter since yesterday she is not feeling well with being more altered than usual and some dizziness which prompted them to bring her to ED. but they denies fever, shortness of breath, nausea, vomiting, diarrhea and other associated symptoms. Chest x-ray revealed interstitial opacities also CT scan revealed ground-glass lungs and enteritis. MRSA was negative. Patient was treated with Zosyn and azithromycin. Breathing treatment was given p.r.n.. Respiratory cultures were sent. Chronic microcytic anemia, asymptomatic, bone marrow biopsy showed myeloid dysmaturation. Patient was scheduled outpatient follow-up with hemato oncologist. We closely monitored lab. She was given GI and VTE prophylaxis. She was on regular diet. The discharge plan was discussed with the patient and family and they agreed. Patient was hemodynamically stable, afebrile was tolerating oral food during the time of discharge. Patient is scheduled to follow-up with PCP in 1 week and f/u [facility] heme-onc as scheduled. General Appearance: Alert, Not fully oriented, Cooperative, Not in acute distress HEENT: Atraumatic, Mucous membranes moist/pink Respiratory: Bilateral crackles mostly in the left. Cardiovascular: Regular rate, Normal S1, Normal S2, No murmurs Abdominal: Active bowel sounds, Soft, no distention, no tenderness Extremities: No edema, Normal pulses, No tenderness/swelling Skin: No Significant rash, except past surgical scars Neuro: Normal speech, sensorimotor deficits none Psych/Mental Status: Mental status NL, Mood NL Operations or Procedures CT abdomen pelvis: Impression: 1. Scattered nonspecific ground-glass opacities within the lungs may reflect infectious/inflammatory process or pulmonary vascular congestion in the appropriate clinical setting. 2. Nonspecific fluid-filled small bowel which could reflect an enteritis in the appropriate clinical setting. 3. There is an 11 mm left upper lobe pulmonary nodule. Comparison with any prior outside imaging is suggested in assessing acuity and interval change. If no prior imaging is available, per fleischner society criteria, consider follow- up CT at 3 months, tissue sampling, or PET-CT in further evaluation. 4. Additional findings as detailed. Chest x-ray:Interstitial opacities of bilateral lungs which may represent pulmonary edema / atypical pneumonia. EKG: Accelerated junctional rhythm Abnormal R-wave progression, early transition Condition at Discharge: Stable Final Diagnosis/Problems List # Acute on chronic metabolic encephalopathy likely from below # ? Acute Gram-positive/negative bacterial PNA # Chronic macrocytic anemia, asymptomatic Discharge Disposition: Home Discharge Instruct/Medications Diet: Consistent carbohydrate, Cardiac 2g Na,low cholest Activity: No Restrictions, As Tolerated Follow Up/Referral: PCP, hematology and Oncology & discharge clinic Medications: Augmentin 875mg P.o. b.i.d. for 10 days Colace daily once Vitamin B12 tablet daily wants Resume home meds Scheduled Amoxicillin & Pot Clavulanate (Augmentin Tablet), 875 MG PO BID Cephalexin (Keflex Capsule), 250 MG PO Q6HR Cyanocobalamin (B12), 1,000 MCG PO DAILY Docusate Sodium (Colace), 100 MG PO DAILY Folic Jgjy-Xcnjpcfkid-Ahowfelj (Folbic), 1 TAB PO DAILY Latanoprost (Latanoprost), 1 DROP EACHEYE HS Megestrol Acetate (Appetite) (Megestrol Acetate), 625 MG PO DAILY Miscellaneous Medications Dorzolamide Hydrochloride (Dorzolamide HCl), 1 % EACHEYE, (Reported) Discharge Statement: "Patient was advised to return to the ER or call 911 if any headaches, dizziness, shortness of breath, chest pain, abdominal pain, bleeding, fevers, or worsening of medical condition. Patient was counseled about treatment plan, medications, possible side effects, patientverbalized understanding. All questions were answered to the best of my ability. This discharge took greater then 30 minutes in planning, reviewing documentation, counseling the patient, and discussing with other team members." ASSESSMENT ASSESSMENT Assessment # Acute on chronic metabolic encephalopathy likely from below # ? Acute Gram-positive/negative bacterial PNA # Chronic macrocytic anemia, asymptomatic Date of Service: Jan 13, 2025 Billing Provider: TRAVIS RESTREPO MD Common Visit Codes: [id number] DISCH DAY >30min KATIZABELA RESIDENT Jan 13, 2025 14:06 TRUPTI MERCEDES RESIDENT Jan 13, 2025 17:35 TRAVIS RESTREPO MD Jan 13, 2025 19:49
== END 2025-01-13 19:03 | disposition home or self-care (01) | DRG 177 ==
LOC: EDBD 12:28 → EDUNIT# 12:28 → ER 12:28 → OVERFLOW 20:03 → EAST 22:25
PROVIDERS: ADMIT Internal Medicine; ATTEND Internal Medicine
DX: J15.69 Pneumonia due to other Gram-negative bacteria (principal); G93.41 Metabolic encephalopathy; J15.9 Unspecified bacterial pneumonia; F03.90 Unspecified dementia, unspecified severity, without behavioral disturbance, psychotic disturbance, mood disturbance, and anxiety; D53.9 Nutritional anemia, unspecified; Z90.710 Acquired absence of both cervix and uterus; Z79.899 Other long term (current) drug therapy; Z87.440 Personal history of urinary (tract) infections; Z80.1 Family history of malignant neoplasm of trachea, bronchus and lung
CPT/HCPCS: 36415; 71045; 71260; 74177; 80053; 81001; 83605; 84484; 85014; 85018; 85025; 85045; 86141; 86850; 86900; 86901; 87081; 93005; 96360; G0378; J2470; J2543